=== PATIENT | female | born 1960 | race Caucasian/White ===

== ENCOUNTER → 2016-11-22 | Day surgery (SDC) | payer BC ==
[2016-11-14 12:07] VITALS: BMI 29.0
--- NOTE | 2016-11-14 12:41 | PAT Medication Instructions ---
Service Date Nov 14, 2016. Current Home Medication List Acetaminophen (Tylenol), 1,000 MG PO TID PRN for Pain Cholestyramine (Cholestyramine), 4 GM PO BID Fluticasone Propionate (Nasal) (Flonase Allergy Relief), 2 SPRAY NA QAM Metoprolol Succ (Toprol Xl) (Toprol-Xl), 12.5 MG PO QAM Mometasone Furoate-Formoterol (Dulera 200/5 Mcg), 2 PUFFS INH BID Omeprazole (Prilosec), 40 MG PO QAM Phenol (Chloraseptic), 1 SPRAY PO DAILY PRN for DRY THROAT Prednisone (Prednisone), 10 MG PO QAM [Proair], 2 PUFFS INH QID PRN for Shortness of Breath Medication Instructions For Your Scheduled Surgery - Hold the following medications the morning of surgery: Cholestyramine (Cholestyramine), 4 GM PO BID Phenol (Chloraseptic), 1 SPRAY PO DAILY PRN for DRY THROAT - Take the following medications the morning of surgery with a sip of water: [Proair], 2 PUFFS INH QID PRN for Shortness of Breath (if needed) Prednisone (Prednisone), 20 MG PO QAM Omeprazole (Prilosec), 40 MG PO QAM Metoprolol Succ (Toprol Xl) (Toprol-Xl), 12.5 MG PO QAM Mometasone Furoate-Formoterol (Dulera 200/5 Mcg), 2 PUFFS INH BID Fluticasone Propionate (Nasal) (Flonase Allergy Relief), 2 SPRAY NA QAM Acetaminophen (Tylenol), 1,000 MG PO TID PRN for Pain (if needed) - Take the following medications as scheduled the night before surgery: [Proair], 2 PUFFS INH QID PRN for Shortness of Breath (if needed) Mometasone Furoate-Formoterol (Dulera 200/5 Mcg), 2 PUFFS INH BID Cholestyramine (Cholestyramine), 4 GM PO BID Acetaminophen (Tylenol), 1,000 MG PO TID PRN for Pain (if needed) If you have any questions please call us at [phone] or [phone] or [phone]
--- NOTE | 2016-11-14 13:08 | DIAGNOSTIC IMAGING REPORT ---
TWO VIEW CHEST CLINICAL HISTORY: Preoperative examination. FINDINGS: PA and lateral chest radiographs are obtained. No prior studies are available for comparison at the time of dictation. The cardiomediastinal silhouette is unremarkable. The lungs and pleural spaces are clear. There is no pneumothorax. The skeletal structures are osteopenic. Degenerative change is noted throughout the thoracic spine. IMPRESSION: No active disease in the chest. Electronically signed by: Cameron Levi M.D. 11/14/2016 1:06 PM Dictated Date/Time: 11/14/2016 1:06 PM
[2016-11-14 13:37] LABS: BASO % 0.2 %; BASO ABS # 0.01 K/uL (0-0.2); COMPLETE YES; EOS % 1.1 %; HEMATOCRIT 43.6 % (37-47); IG% 0.5 %; LYMPH % 8.7 %; LYMPH ABS # 0.54 K/uL (1.2-3.4); MEAN CELL VOLUME 95.2 fL (80-100); MEAN CORPUSCULAR HGB CONC 32.6 g/dl (32-36); MEAN PLATELET VOLUME 10.4 fL (7.4-10.4); NEUT % 81.5 %; PLATELET COUNT 196 K/uL (130-400); RED BLOOD COUNT 4.58 M/uL (4.2-5.4); WHITE BLOOD COUNT 6.23 K/uL (4.8-10.8)
[2016-11-14 13:53] LABS: PARTIAL THROMBOPLASTIN RATIO 0.9; PROTHROMBIN TIME (PATIENT) 10.3 SECONDS (9.0-12.0)
[2016-11-14 14:03] LABS: BUN/CREATININE RATIO 25.4 (10-20); CALCIUM 8.5 mg/dl (8.5-10.1); CREATININE 0.57 mg/dl (0.60-1.20); POTASSIUM 3.5 mmol/L (3.5-5.1)
[2016-11-14 14:39] LABS: URINE APPEARANCE CLEAR (CLEAR); URINE BILIRUBIN NEG (NEG); URINE COLOR YELLOW; URINE NITRITE NEG (NEG); URINE PH 5.5 (4.5-7.5); URINE SPECIFIC GRAVITY 1.029 (1.000-1.030); UROBILINOGEN NEG (NEG)
[2016-11-14 14:49] LABS: MANUAL MICROSCOPIC REQUIRED? NO; REVIEW REQ? NO
--- NOTE | 2016-11-21 22:37 | History and Physical ---
History & Physical Date Nov 21, 2016. Chief Complaint Left knee pain History of Present Illness The patient is a 56 year old female with complaints of left knee pain that has worsened over the past few months. She had a similar issue in the right knee approximately 1 year ago and had a knee arthroscopy which helped the pain. She had an MRI of the left knee when this pain began and it noted a medial meniscus tear. She is now being set up for surgical management. Past Medical/Surgical History PMH: Asthma, RA, hypertension, GERD Past surgical hx: Right knee arthroscopy, D & C, cyst removal Allergies Coded Allergies: Methotrexate (Verified Allergy, Mild, NAUSEA/ AND SOME TROUBLE BREATHING, 11/14/16) Home Medications Scheduled Budesonide/Formoterol Fumarate (Symbicort 160/4.5 Inhaler ), 2 PUFFS INH BID Cholestyramine (Cholestyramine), 4 GM PO BID Fluticasone Propionate (Nasal) (Flonase Allergy Relief), 2 SPRAY NA QAM Metoprolol Succ (Toprol Xl) (Toprol-Xl), 12.5 MG PO QAM Omeprazole (Prilosec), 40 MG PO QAM Prednisone (Prednisone), 20 MG PO QAM Scheduled PRN Acetaminophen (Tylenol), 1,000 MG PO TID PRN for Pain Phenol (Chloraseptic), 1 SPRAY PO DAILY PRN for DRY THROAT [Proair], 2 PUFFS INH QID PRN for Shortness of Breath Physical Examination Skin: warm/dry, no rash Eyes: normal inspection Head: normocephalic, atraumatic Neck: supple, trachea midline Respiratory/Chest: lungs clear, normal breath sounds, no respiratory distress Cardiovascular: regular rate, rhythm, no murmur Abdomen / GI: normal bowel sounds, non tender Extremities: + pertinent finding (Left knee: No erythema or ecchymosis. Mild swelling. Mild to moderate effusion. Pain passive and active ROM. + Naresh's of the left knee. No laxity with varus/valgus stress or anterior/posterior drawer. Decrease in ROM and strength secondary to pain.) Neurologic/Psych: no motor/sensory deficits, alert, oriented x 3 Diagnosis Left knee medial meniscus tear Left knee osteoarthritis Left knee Herrera's cyst. Plan of Treatment A Left Knee arthroscopy w/ Partial Medial Meniscectomy, chondroplasty patella, aspiration bakers' cyst is recommended. All potential risks, benefits, complications, alternatives, and rehab have been discussed with the patient. She wishes to proceed with the surgery as indicated. She will be scheduled for 11.22.16.
[~2016-11-22] VITALS: Ht 157.5 cm; Wt 72.1 kg
[~2016-11-22] MED LIST: ACET-1256 PO; ASPI-232 PO; ATROPINE SULFATE 0.1 MG/ML 5ML SYR IV PRN; BUPIVACAINE/EPINEPHRINE 0.5% MPF 1:200,000 10 ML VIAL ONE; CEFAZOLIN 2000 MG/60 ML D5W IV SCH; CHLL PO; CHOL4POW4 PO; DEXAMETHASONE SOD INJ 4 MG/ML VIAL ONE; EpHEDrine SULFATE 50MG/5ML SYR ONE; EpHEDrine SULFATE INJ 50 MG/ML AMP IV PRN; EpINEphrine HCL INJ 1 MG/ML 5ML SYRINGE ONE; FENTANYL CITRATE INJ 50 MCG/1 ML 2 ML VIAL IV PRN; FENTANYL CITRATE INJ 50 MCG/1 ML 2 ML VIAL ONE; FLUT0.15; LACTATED RINGER'S 1000ML 1,000 ML IV SCH; LIDOCAINE HCL 2% 2 ML VIAL (20MG/ML) ONE; METO25TA3 PO; MIDAZOLAM HCL 1 MG/ML 2ML VIAL ONE; OMEP40CA PO; OMEP40CA41 PO; ONDANSETRON INJ 2 MG/ML 2 ML VIAL IV PRN; ONDANSETRON INJ 2 MG/ML 2 ML VIAL ONE; OXYC-57 PO; OXYCODONE/ACETAMINOPHEN 5-325 TAB PO PRN; PHENYLEPHRINE 100MCG/ML 5ML SYR ONE; PRED20TA PO; PRED50TA PO; PROAIR INH; PROPOFOL IV EMULSION 10 MG/ML 20 ML VIAL IV ONE; SYMIN160 INH; TOCI80IN IM
[2016-11-22 06:42] VITALS: BP 145/75; PULSE 74; TEMP 36.7; O2SAT 96; Ht 157.5 cm; Wt 72.1 kg
--- NOTE | 2016-11-22 07:50 | History & Physical Bridge Note ---
H&P Re-Evaluation Bridge Note: I have examined the patient, reviewed the History & Physical and in the interval since the performance of the History & Physical I have noted the following changes of clinical significance: No changes noted
--- NOTE | 2016-11-22 10:10 | Discharge Instructions ---
Discharge Instructions Date of Service Nov 22, 2016. Admission Reason for Admission: Left Knee Medidal Meniscus Tear, Synovial Cyst Of Discharge Discharge Diagnosis / Problem: Left knee medial meniscus tear Discharge Goals Goal(s): Decrease discomfort, Improve function Activity Recommendations Activity Limitations: per Instructions/Follow-up section Weightbearing Status: Left weightbearing (as tolerated) . Instructions / Follow-Up Instructions / Follow-Up ACTIVITY RECOMMENDATIONS: * You may walk on the leg with or without crutches as comfort permits. * Bending of the knee should start at once. * Do not shower for 48 hours following surgery. SPECIAL CARE INSTRUCTIONS: * You may cleanse the skin adjacent to the small wounds with soap and water at the time of the first dressing change. * The application of an ice bag to the front and sides of the knee will decrease swelling and discomfort for the first 48 hours. * The small incisions may be sore and develop bruising. This bruising does not require any special care. SPECIAL PRECAUTIONS: * If you experience unusual pain unrelieved by prescriptions, temperature elevation (100 degrees F. or above) or progressive swelling or bleeding, you should contact our office at for further evaluation. * You may have been prescribed pain medication. If you experience nausea and/or fine skin rash, discontinue this medication and contact our office at for an alternate medication. DRESSING: * Dressing should be comfortable and absorb any leakage of fluid and/or blood. * The dressing may become moist or bloodstained. * Dressing may be removed 3 days after surgery and bandaids placed over the small surgical incisions. If can be removed sooner if it becomes very soiled or loose. * Bandaids may be used over next several days as needed and can be discontinued when there is not further drainage from the wounds. FOLLOW UP VISIT: If appointment is not already scheduled: Please call [facility] to make a follow-up appointment for 2 weeks after your surgery at . Current Hospital Diet Patient's current hospital diet: Discharge Diet Recommended Diet: Regular Diet Procedures Procedures Performed: Left Knee Arthroscopy with Partial Medial Menisectomy, Chondroplasty; Patella - Aspiration Bakers Cyst Pending Studies Studies pending at discharge: no Medical Emergencies . Who to Call and When: Medical Emergencies: If at any time you feel your situation is an emergency, please call [phone] immediately. . Non-Emergent Contact Non-Emergency issues call your: Surgeon Call Non-Emergent contact if: temperature is above 101, your pain is not controlled, your pain is worsening, wound has increased drainage, wound has increased redness . "Provider Documentation" section prepared by Dyllan Ashton. . VTE Core Measure Inpt VTE Proph given/why not?: SCD's
--- NOTE | 2016-11-22 11:10 | [facility] Post Operative Brief Note ---
Immediate Operative Summary Operative Date Nov 22, 2016. Pre-Operative Diagnosis Left knee medial meniscus tear Left knee osteoarthritis Left knee Herrera's cyst. 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 Procedure(s) Performed Left Knee Arthroscopy with Partial Medial Menisectomy; Partial Lateral Menisectomy, Chondroplasty of Patella, Abrasion Chondroplasty medial femoral chondyle; Aspiration Bakers Cyst Surgeon Dr. Mosqueda [employer] Architect Surgeon(s) none Estimated Blood Loss 1 ML Findings See dict Specimens none per surgeon Drains None Anesthesia GLMA w/ local Complication(s) None Disposition Recovery Room / PACU
[2016-11-22 11:39] VITALS: BP 140/67; PULSE 88; TEMP 36.7; O2SAT 97
[2016-11-22 12:10] VITALS: BP 139/62; PULSE 96; O2SAT 97
--- NOTE | 2016-11-22 12:35 | Anesthesiology Progress Note ---
Anesthesia Post Op Note Date & Time Nov 22, 2016 at 12:35 Vital Signs Pain Intensity: 3 Vital Signs Past 12 Hours Date Time Temp Pulse Resp B/P (MAP) Pulse Ox O2 Delivery O2 Flow Rate FiO2 11/22/16 12:10 96 18 139/62 97 Nasal Cannula 1.5 11/22/16 11:39 36.7 88 16 140/67 97 Nasal Cannula 1.5 11/22/16 11:30 89 16 133/69 97 Nasal Cannula 2 11/22/16 11:20 36.4 86 14 131/67 97 Nasal Cannula 2 11/22/16 11:10 90 18 117/76 99 Oxymask 8 11/22/16 11:00 90 16 121/70 99 Oxymask 8 11/22/16 10:52 36 98 16 120/79 100 Oxymask 8 11/22/16 06:42 36.7 74 18 145/75 (98) 96 Room Air Notes Mental Status: alert / awake / arousable, participated in evaluation Pt Amnestic to Procedure: Yes Nausea / Vomiting: adequately controlled Pain: adequately controlled Airway Patency, RR, SpO2: stable & adequate BP & HR: stable & adequate Hydration State: stable & adequate Anesthetic Complications: no major complications apparent
[2016-11-22 12:40] VITALS: BP 135/63; PULSE 98; TEMP 36.2; O2SAT 94
--- NOTE | 2016-11-22 23:33 | OPERATIVE REPORT ---
DATE OF OPERATION: 11/22/2016 PREOPERATIVE DIAGNOSES: 1. Left knee medial meniscus tear. 2. Chondromalacia of the patella. 3. Herrera's cyst. POSTOPERATIVE DIAGNOSES: 1. Left knee medial meniscus tear. 2. Lateral meniscus tear. 3. 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 4. 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 5. Major synovitis. 6. Herrera's cyst. PROCEDURE: 1. Left knee arthroscopy with partial medial meniscectomy. 2. Partial lateral meniscectomy. 3. Abrasion chondroplasty to bleeding bone of the medial femoral condyle. 4. Chondroplasty of the patella. 5. Major synovectomy. 6. Aspiration Herrera's cyst. SURGEON: Dr. Mosqueda. LORRY WEIGHER: None. ANESTHESIA: General LMA with local. SPECIMENS: None. DRAINS: None. COMPLICATIONS: None. BLOOD LOSS: 1 mL PERTINENT HISTORY: This is a 56-year-old woman who had sustained a twisting injury to her left knee. She had difficulty with weightbearing, walking and standing. She attempted conservative management and failed including bracing, use of an anti-inflammatory, use of an assistive device, home exercises and shoe wear modification. She had an MRI which demonstrated tear of the medial meniscus, large Herrera cyst in the posterior fossa of the knee and irregularity of the chondral surface of the patella. The patient was then scheduled for surgery as indicated. All potential risks, benefits, complications, alternatives, rehab, potential for incomplete relief of symptoms, need for further surgery, DVT, PE, , persistent pain, swelling, scarring, weakness, neurovascular injury, wound complications were discussed with the patient. The patient decided to proceed with the procedure as indicated. PROCEDURE IN DETAIL: The patient was taken to the operative suite, placed supine on the operating room table. After review of the consent and identification of proper operative site, the patient was anesthetized, LMA was placed. Tourniquet was placed high on the left thigh over cast padding. Left lower extremity was then sterilely prepped and draped in usual fashion, elevated and exsanguinated with an Esmarch bandage. Tourniquet inflated to 350 mmHg. Next, the knee was elevated, and then using an 18-gauge spinal needle, approximately 20 mL of straw-colored synovial fluid was withdrawn from the posterior fossa of the left knee. After this was completed, 11 blade scalpel was then used to make an incision on the inferior lateral aspect of the knee, followed by placement of blunt trocar and sleeve, camera and inflow. Next, a superomedial portal was established using 11 blade scalpel and placement of a Veress needle for outflow. Next, sequential diagnostic arthroscopy commenced in the suprapatellar pouch, noting synovitis. There was also noted to be chondromalacia grade 2-3 of the patella and some minor softening in the femoral trochlea. Significant synovitis was noted in the suprapatellar pouch, both medial and lateral gutters. No loose bodies noted in the lateral or medial gutter. Next, attention was then directed toward the medial joint space, 18-gauge spinal needle was introduced to establish the portal site with 11 blade scalpel incision. Next, a blunt tip probe was inserted, noted to be a tear of the posterior horn extending into the body of the medial meniscus. Also noted to be chondromalacia grade 3 of the medial femoral condyle with significant softening. Next, the basket biter was inserted and the damaged portion of the medial meniscus was then resected. Next, a 4.5 mm sucker shaver was introduced, followed by removal of particulate debris of the meniscus. Next, the meniscus was then smoothed and contoured with the sucker shaver. This was then followed by performance of an abrasion chondroplasty to bleeding bone of the medial femoral condyle. Once this was completed, attention was then directed toward the ACL and PCL which were inspected and tested with a blunt tip probe. They were noted to be intact. Next, synovitis was noted in the medial and lateral compartments. At this point, synovectomy was performed with the sucker shaver of the medial and lateral compartments. Next, the lateral joint space was then inspected. The chondral surfaces were noted to be intact. There was also noted to be a tear of the posterior horn of the lateral meniscus. Partial lateral meniscectomy was then performed with a basket biter and the remainder of the meniscus was then smoothed and contoured with a 4.5 mm sucker shaver. All particulate debris was removed. Next, the 4.5 mm sucker shaver was then used to perform a synovectomy in the medial and lateral gutters as well as in the suprapatellar pouch. This was then followed by performance of chondroplasty of the patella. Next, synovectomy was then completed and all excess debris and particulate debris were then flushed from the joint using copious amounts of lavage solution. Next, the lavage solution was then removed from the joint, followed by removal of the instruments from the left knee. Next, the joint was then injected with 30 mL of 0.25% Marcaine with epinephrine. The portal sites then all closed using interrupted 4-0 nylon suture. A sterile compressive dressing and Ishmael wrap was then applied. The tourniquet was then released. The patient was awakened and taken to recovery in stable condition. I attest to the content of the Intraoperative Record and any orders documented therein. Any exception s are noted below.
== END | disposition home or self-care (01) ==
LOC: C.ACU 06:09
PROVIDERS: ATTEND Orthopaedic Surgery Sports Medicine
DX: S83.242A Other tear of medial meniscus, current injury, left knee, initial encounter (principal); S83.282A Other tear of lateral meniscus, current injury, left knee, initial encounter; X50.0XXA Overexertion from strenuous movement or load, initial encounter; M22.42 Chondromalacia patellae, left knee; M94.262 Chondromalacia, left knee; M65.812 Other synovitis and tenosynovitis, left shoulder; M71.22 Synovial cyst of popliteal space [Baker], left knee; I10 Essential (primary) hypertension; J45.909 Unspecified asthma, uncomplicated; K21.9 Gastro-esophageal reflux disease without esophagitis; M06.9 Rheumatoid arthritis, unspecified; Z79.899 Other long term (current) drug therapy

== ENCOUNTER 2016-11-28 02:33 | Emergency (ER) | payer BC ==
[~2016-11-28] VITALS: Ht 157.5 cm; Wt 73.0 kg
[~2016-11-28 02:33] MED LIST changes: -ACET-1256 PO; -ASPI-232 PO; -ATROPINE SULFATE 0.1 MG/ML 5ML SYR IV PRN; -BUPIVACAINE/EPINEPHRINE 0.5% MPF 1:200,000 10 ML VIAL ONE; -CEFAZOLIN 2000 MG/60 ML D5W IV SCH; -DEXAMETHASONE SOD INJ 4 MG/ML VIAL ONE; -EpHEDrine SULFATE 50MG/5ML SYR ONE; -EpHEDrine SULFATE INJ 50 MG/ML AMP IV PRN; -EpINEphrine HCL INJ 1 MG/ML 5ML SYRINGE ONE; -FENTANYL CITRATE INJ 50 MCG/1 ML 2 ML VIAL IV PRN; -FENTANYL CITRATE INJ 50 MCG/1 ML 2 ML VIAL ONE; -LACTATED RINGER'S 1000ML 1,000 ML IV SCH; -LIDOCAINE HCL 2% 2 ML VIAL (20MG/ML) ONE; -MIDAZOLAM HCL 1 MG/ML 2ML VIAL ONE; -OMEP40CA41 PO; -ONDANSETRON INJ 2 MG/ML 2 ML VIAL IV PRN; -ONDANSETRON INJ 2 MG/ML 2 ML VIAL ONE; -OXYCODONE/ACETAMINOPHEN 5-325 TAB PO PRN; -PHENYLEPHRINE 100MCG/ML 5ML SYR ONE; -PRED50TA PO; -PROPOFOL IV EMULSION 10 MG/ML 20 ML VIAL IV ONE; -TOCI80IN IM
[2016-11-28 02:38] VITALS: TEMP 37.5; Ht 157.5 cm; Wt 73.0 kg
[2016-11-28] MEDS ORDERED: ALBUT/IPRATROP 3MG/0.5MG NEB 3 ML VIAL INH STA (02:46)
[2016-11-28] MEDS ORDERED: SODIUM CHLORIDE 0.9% 1000ML 1,000 ML IV STA (02:46)
[2016-11-28] MEDS ORDERED: SODIUM CHLORIDE 0.9% 500ML 500 ML IV STA (02:46)
[2016-11-28] MEDS ORDERED: DEXAMETHASONE SOD INJ 10 MG/ML VIAL IV ONE (03:00)
[2016-11-28 03:09] VITALS: O2SAT 91
[2016-11-28 03:15] LABS: BASO % 0.1 %; BASO ABS # 0.01 K/uL (0-0.2); COMPLETE YES; HEMATOCRIT 42.8 % (37-47); IG% 0.7 %; LYMPH % 11.3 %; LYMPH ABS # 1.31 K/uL (1.2-3.4); MEAN CELL VOLUME 95.7 fL (80-100); MEAN CORPUSCULAR HEMOGLOBIN 31.3 pg (25-34); MEAN CORPUSCULAR HGB CONC 32.7 g/dl (32-36); MONO % 5.6 %; NEUT % 78.3 %; PLATELET COUNT 299 K/uL (130-400); RED BLOOD COUNT 4.47 M/uL (4.2-5.4); WHITE BLOOD COUNT 11.58 K/uL (4.8-10.8)
[2016-11-28 03:26] LABS: POINT OF CARE TROPONIN I < 0.030 ng/ml (0-0.045)
[2016-11-28 03:31] LABS: BUN/CREATININE RATIO 20.5 (10-20); CALCIUM 8.9 mg/dl (8.5-10.1); CREATININE 0.79 mg/dl (0.60-1.20); POTASSIUM 3.7 mmol/L (3.5-5.1)
[2016-11-28] MEDS ORDERED: OPTIRAY 320 IV PRN (03:45)
[2016-11-28] MEDS ORDERED: ASPI-232 PO (04:05)
[2016-11-28] MEDS ORDERED: OMEP40CA41 PO (04:08)
[2016-11-28] MEDS ORDERED: ONDANSETRON INJ 2 MG/ML 2 ML VIAL IV STA (04:24)
--- NOTE | 2016-11-28 06:09 | EMERGENCY ROOM VISIT NOTE ---
History First contact with patient: 02:42 Chief Complaint: RESPIRATORY PROBLEMS Stated Complaint: PAIN IN STOMACH,HARD TIME BREATHING Nursing Triage Summary: C/O frequent productive cough, SOB & nausea. Reports mucous is light yellow & thick. Frequent coughing causes left rib pain, nausea & SOB. Did use Proair inhaler at home- last 0200 without relief. Denies fever. Taking long-term Prednisone for COPD & arthritis. Recent left knee surgery- 3 sites intact & sutures noted. Eccymosis noted to back of left knee. Reports edema to knee has improved since surgery. Not taking any medications for pain. History of Present Illness The patient is a 56 year old female who presents to the Emergency Room with complaints of cough, chest pain, dyspnea and nausea for the past day. Patient had knee surgery week and half ago by Dr. Mosqueda. No history of DVT or PE. Patient's been taking a baby aspirin. Patient has been taking prednisone for her bad RA. She's been taking 25 mg daily. Patient denies fevers, abdominal pain, leg pain or swelling, headache, neck stiffness. She is tolerate by mouth fluids and food. Review of Systems See HPI for pertinent positives & negatives. A total of 10 systems reviewed and were otherwise negative. Past Medical/Surgical History arthritis, knee OR, asthma Social History Smoking Status: Never Smoker Smokeless Tobacco Use: No Drug Use: none Marital Status: Housing Status: lives with family Current/Historical Medications Scheduled Aspirin (Aspir-81), 81 MG PO DAILY Budesonide/Formoterol Fumarate (Symbicort 160/4.5 Inhaler ), 2 PUFFS INH BID Cholestyramine (Cholestyramine), 4 GM PO BID Fluticasone Propionate (Nasal) (Flonase Allergy Relief), 2 SPRAY NA QAM Metoprolol Succ (Toprol Xl) (Toprol-Xl), 12.5 MG PO QAM Omeprazole (Prilosec), 40 MG PO QAM Prednisone (Prednisone), 20 MG PO QAM Scheduled PRN Oxycodone/Acetaminophen 5MG/325MG (Percocet 5MG/325MG), 1-2 TABLETS PO Q4H PRN for Pain Phenol (Chloraseptic), 1 SPRAY PO DAILY PRN for DRY THROAT [Proair], 2 PUFFS INH QID PRN for Shortness of Breath Physical Exam Vital Signs Date Time Temp Pulse Resp B/P (MAP) Pulse Ox O2 Delivery O2 Flow Rate FiO2 11/28/16 04:03 122 24 171/67 92 Room Air 11/28/16 03:33 105 15 100 11/28/16 03:25 113 11/28/16 03:14 91 Room Air 11/28/16 03:12 161/87 11/28/16 03:09 91 Room Air 11/28/16 02:38 37.5 106 24 133/70 93 Room Air Physical Exam VITALS: Vitals are noted on the nurse's note and reviewed by myself. Vital signs stable. GENERAL: Pleasant female speaking in full sentences, in no acute distress, nondiaphoretic, well-developed well-nourished. SKIN: The skin was without rashes, erythema, edema, or bruising. There is no tenting of the skin. Capillary reflex less than 2 seconds. HEAD: Normocephalic atraumatic. EARS: External auditory canals clear, tympanic membranes pearly ma without erythema or effusion bilaterally. EYES: Pupils equal round and reactive to light and accommodation. Conjunctivae without injection, sclerae without icterus. Extraocular movements intact. NOSE: Patent, turbinates without inflammation or discharge. No sinus tenderness. MOUTH: Mucous membranes moist. Pharynx without erythema or exudate. Uvula midline. Airway patent. Tongue does not deviate. NECK: Supple without nuchal rigidity. No lymphadenopathy. No thyromegaly. Cervical spine is nontender. No JVD. HEART: Regular rate and rhythm without murmurs gallops or rubs. LUNGS: Mild diffuse end expiratory wheezes, without rales or rhonchi. No dullness to percussion. No retractions or accessory muscle use. ABDOMEN: Positive bowel sounds x 4. Normal tympanic percussion. Soft, nontender, without masses or organomegaly. No sign negative. No guarding or rebound tenderness. MUSCULOSKELETAL: No muscle atrophy, erythema, noted. Left lower leg slightly edematous with bruising present from recent surgery. Incisional scars of the left knee are intact without signs of infection. NEURO: Patient was alert and oriented to person place and time. Normal sensation to light and sharp touch. No focal neurological deficits. Medical Decision & Procedures Laboratory Results 11/28/16 03:00 Red Blood Count 4.47, Mean Corpuscular Volume 95.7, Mean Corpuscular Hemoglobin 31.3, Mean Corpuscular Hemoglobin Concent 32.7, Mean Platelet Volume 10.0, Neutrophils (%) (Auto) 78.3, Lymphocytes (%) (Auto) 11.3, Monocytes (%) (Auto) 5.6, Eosinophils (%) (Auto) 4.0, Basophils (%) (Auto) 0.1, Neutrophils # (Auto) 9.07, Lymphocytes # (Auto) 1.31, Monocytes # (Auto) 0.65, Eosinophils # (Auto) 0.46, Basophils # (Auto) 0.01 11/28/16 03:00 Test 11/28/16 03:00 11/28/16 03:08 11/28/16 05:40 White Blood Count 11.58 K/uL (4.8-10.8) Red Blood Count 4.47 M/uL (4.2-5.4) Hemoglobin 14.0 g/dL (12.0-16.0) Hematocrit 42.8 % (37-47) Mean Corpuscular Volume 95.7 fL (80-100) Mean Corpuscular Hemoglobin 31.3 pg (25-34) Mean Corpuscular Hemoglobin Concent 32.7 g/dl (32-36) Platelet Count 299 K/uL (130-400) Mean Platelet Volume 10.0 fL (7.4-10.4) Neutrophils (%) (Auto) 78.3 % Lymphocytes (%) (Auto) 11.3 % Monocytes (%) (Auto) 5.6 % Eosinophils (%) (Auto) 4.0 % Basophils (%) (Auto) 0.1 % Neutrophils # (Auto) 9.07 K/uL (1.4-6.5) Lymphocytes # (Auto) 1.31 K/uL (1.2-3.4) Monocytes # (Auto) 0.65 K/uL (0.11-0.59) Eosinophils # (Auto) 0.46 K/uL (0-0.5) Basophils # (Auto) 0.01 K/uL (0-0.2) RDW Standard Deviation 53.6 fL (36.4-46.3) RDW Coefficient of Variation 15.3 % (11.5-14.5) Immature Granulocyte % (Auto) 0.7 % Immature Granulocyte # (Auto) 0.08 K/uL (0.00-0.02) Anion Gap 7.0 mmol/L (3-11) Est Creatinine Clear Calc Drug Dose 72.6 ml/min Estimated GFR () 95.6 Estimated GFR (Non- 82.5 BUN/Creatinine Ratio 20.5 (10-20) Calcium Level 8.9 mg/dl (8.5-10.1) Total Bilirubin 0.5 mg/dl (0.2-1) Direct Bilirubin 0.1 mg/dl (0-0.2) Aspartate Amino Transf (AST/SGOT) 18 U/L (15-37) Alanine Aminotransferase (ALT/SGPT) 39 U/L (12-78) Alkaline Phosphatase 122 U/L (45-117) Total Protein 6.7 gm/dl (6.4-8.2) Albumin 3.0 gm/dl (3.4-5.0) Lipase 147 U/L (73-393) Bedside D-Dimer > 450 ng/mlFEU (0-450) Bedside Troponin I < 0.030 ng/ml (0-0.045) Medications Administered Medications (Trade) Dose Ordered Sig/Bryan Route Start Time Stop Time Status Last Admin Dose Admin Dexamethasone Sodium Phosphate (Decadron Inj) 10 mg NOW ONCE IV 11/28/16 03:00 11/28/16 03:01 DC 11/28/16 03:28 10 MG Sodium Chloride 1,000 ml @ 125 mls/hr Q8H STAT IV 11/28/16 02:46 11/28/16 10:45 11/28/16 03:37 125 MLS/HR Albuterol/ Ipratropium (Duoneb) 3 ml NOW STAT INH 11/28/16 02:46 11/28/16 02:50 DC 11/28/16 03:28 3 ML Sodium Chloride 500 ml @ 999 mls/hr Q31M STAT IV 11/28/16 02:46 11/28/16 03:16 DC 11/28/16 03:37 999 MLS/HR Ondansetron HCl (Zofran Inj) 4 mg NOW STAT IV 11/28/16 04:24 11/28/16 04:25 DC 11/28/16 04:31 4 MG ED Course Prior records/ancillary studies reviewed. Triage Nursing notes reviewed. Additional history obtained from family. The patient's history was concerning for chest pain. Differential diagnosis: Etiologies such as cardiac ischemia, aortic dissection, pulmonary embolism, pneumonia, pneumothorax, musculoskeletal, infections, pericarditis, myocarditis , esophageal rupture, gastrointestinal, as well as others were entertained. Physical examination: As above. ER treatment provided: Decadron, nebulizer On reassessment the patient felt better. Diagnostic interpretation by me: The electrocardiogram was negative for pathologic change. Normal sinus, normal intervals, occasional PVC, no acute ST-T wave changes, rate of 111. Impression sinus tachycardia with occasional PVCs interpreted by myself The labs revealed elevated d-dimer, negative troponin 2 2 hours apart Imaging studies: Chest x-ray with no acute consolidation, pneumothorax or free air per my interpretation CTA shows subacute right seventh rib fracture per stat radiology. No PE Exam and history seem consistent with bronchitis with red fracture. Patient was advised to incentive spirometry and to follow-up family care in a few days or here in the ER sooner for chest pain, difficulty breathing, worsening signs or symptoms or as needed. Patient had no PE and CTA. Negative troponin. She was well-appearing.. By the evaluation outlined above emergent etiologies such as cardiac ischemia, aortic dissection, pulmonary embolism, pneumonia, pneumothorax, infections, pericarditis, myocarditis, gastrointestinal, as well as others were deemed relatively unlikely. The pt informed about the findings as listed above. All questions were answered and pleased with the treatment. Return instructions were outlined and the patient was discharged in stable condition. Outpatient prescription management: prednisone Referral: The patient was referred back to primary care physician for follow-up in 2 to 3 days for a recheck of the current condition. Case reviewed with my attending. Medical Decision As above Medication Reconcilliation Current Medication List: was personally reviewed by me Blood Pressure Screening Patient's blood pressure: Normal blood pressure Impression Primary Impression: Bronchitis Additional Impression: Right rib fracture Departure Information Dispostion Home / Self-Care Condition GOOD Referrals Sarah Zapata M.D. (PCP) Patient Instructions My [facility] Additional Instructions Incentive spirometry 10 times an hour while you're awake for the next 2 weeks. Albuterol Inhaler: Take 2 puffs four times daily for five days, then as needed. Prednisone 50mg: Once daily until the prescription is finished. It is best to take this earlier in the day as some patients note occasional difficulty falling asleep when taken in the late evening. Acetaminophen(Tylenol) may be used for fever or pain. Use 1000mg every six hours as needed. Avoid using more than 3000mg in a 24 hour period. (AND/OR) Ibuprofen(Motrin, Advil) may be used for fever or pain. Use 600mg every six hours as needed. Take with food. Avoid using more than 2400mg in a 24 hour period. Do not use 2400mg per day for more than three consecutive days without physician direction. Prolonged inappropriate use can lead to stomach upset or ulcers. Rest and drink plenty of fluids. Avoid smoke/smoking, fumes, dust, or any triggers in the past that may have affected your breathing. Continue current medications. Return to the ER for chest pain, difficulty breathing, fevers, vomiting, worsening of your condition, or as needed. Follow up with your primary physician this week for a recheck of your current condition. Problem Qualifiers Additional Impression: Right rib fracture Encounter type: initial encounter Rib fracture type: single rib Fracture type: closed Qualified Codes: S22.31XA - Fracture of one rib, right side, initial encounter for closed fracture
[2016-11-28] MEDS ORDERED: PRED50TA PO (06:10)
[2016-11-28 06:30] VITALS: BP 133/72; PULSE 103; O2SAT 91
--- NOTE | 2016-11-28 06:32 | DIAGNOSTIC IMAGING REPORT ---
(CHEST FOR PE) ANGIO WITH CT DOSE: 243.92 mGy.cm HISTORY: Chest pain dyspnea TECHNIQUE: Multiaxial CT images of the chest were performed following the intravenous administration of contrast to evaluate the pulmonary arteries. Maximal intensity projection images were also obtained. A dose lowering technique was utilized adhering to the principles of ALARA. COMPARISON STUDY: None. FINDINGS: There is a normal caliber thoracic aorta with no evidence for dissection. There is no evidence for pulmonary embolus. No pleural effusions. No pneumothorax. The liver and spleen are unremarkable. No mediastinal or hilar lymphadenopathy. The central airways are patent. The lungs are clear. Several old right-sided rib fractures. No focal infiltrate. IMPRESSION: No evidence for pulmonary embolus. The above report was generated using voice recognition software. It may contain grammatical, syntax or spelling errors. Electronically signed by: Carlos Maciel M.D. 11/28/2016 6:31 AM Dictated Date/Time: 11/28/2016 6:30 AM
--- NOTE | 2016-11-28 06:47 | DIAGNOSTIC IMAGING REPORT ---
CHEST ONE VIEW PORTABLE HISTORY: 56 years-old Female CHEST PAIN acute atypical chest pain with cough. Initial exam. COMPARISON: Chest radiograph 11/14/2016, CTA chest 11/28/2016. TECHNIQUE: Portable upright AP view the chest FINDINGS: Cardiomediastinal and hilar silhouettes are within normal limits. There is no pneumothorax, pleural effusion or focal airspace consolidation. There is no overt pulmonary edema. There is mild bilateral bronchial wall thickening with mild hyperinflation. The bones are grossly intact. IMPRESSION: 1. No focal airspace consolidation to suggest pneumonia. 2. Mild bilateral bronchial wall thickening, also seen on comparison chest CT of same day suggests bronchitis with mild hyperinflation. The above report was generated using voice recognition software. It may contain grammatical, syntax or spelling errors. Electronically signed by: Nagi Lorenzo M.D. 11/28/2016 6:45 AM Dictated Date/Time: 11/28/2016 6:44 AM
== END 2016-11-28 06:36 | disposition home or self-care (01) ==
LOC: C.EDB 02:34
DX: J40 Bronchitis, not specified as acute or chronic (principal); S22.31XA Fracture of one rib, right side, initial encounter for closed fracture; X58.XXXA Exposure to other specified factors, initial encounter; Z79.82 Long term (current) use of aspirin; Z79.899 Other long term (current) drug therapy; J45.909 Unspecified asthma, uncomplicated; M19.90 Unspecified osteoarthritis, unspecified site

== ENCOUNTER 2017-03-26 15:14 | Inpatient (IN) | payer BC ==
[~2017-03-26] VITALS: Ht 160 cm; Wt 72.8 kg
[~2017-03-26 15:14] MED LIST changes: +ASPI-232 PO; -OMEP40CA PO; +OMEP40CA41 PO
[2017-03-26] MEDS ORDERED: ALBUT/IPRATROP 3MG/0.5MG NEB 3 ML VIAL INH STA (15:31)
--- NOTE | 2017-03-26 16:18 | DIAGNOSTIC IMAGING REPORT ---
CHEST ONE VIEW PORTABLE CLINICAL HISTORY: 57 years-old Female presenting with sob eval for pna. TECHNIQUE: Portable upright AP view of the chest was obtained. COMPARISON: 11/28/2016. FINDINGS: Cardiomediastinal silhouette normal. Mild bronchial wall thickening. No focal infiltrate. No pleural effusion or pneumothorax. Old fracture of the right seventh rib suspected. Osseous structures otherwise normal. Upper abdomen normal. IMPRESSION: 1. Mild bronchial wall thickening could suggest bronchitis or reactive airways. No focal infiltrate to suggest pneumonia. Electronically signed by: Franklin Walters M.D. 03/26/2017 4:17 PM Dictated Date/Time: 03/26/2017 4:15 PM
[2017-03-26] MEDS ORDERED: MTHI50 INJ (16:24)
[2017-03-26] MEDS ORDERED: SPRIN/30 INH (16:24)
[2017-03-26] MEDS ORDERED: PRED10TA PO (16:24)
[2017-03-26] MEDS ORDERED: RANI300T2 PO (16:24)
[2017-03-26] MEDS ORDERED: RRALBUTNEB NEB (16:24)
[2017-03-26] MEDS ORDERED: VNTHFA/IN INH (16:24)
[2017-03-26] MEDS ORDERED: OPTIRAY 320 IV PRN (16:30)
[2017-03-26 16:36] LABS: PTT PATIENT 21.5 SECONDS (21.0-31.0)
[2017-03-26 16:45] LABS: BASO % 0.4 %; BASO ABS # 0.02 K/uL (0-0.2); EOS % 2.8 %; EOS ABS # 0.16 K/uL (0-0.5); HEMATOCRIT 53.1 % (37-47); HEMOGLOBIN 17.6 g/dL (12.0-16.0); IG# 0.05 K/uL (0.00-0.02); LYMPH % 13.8 %; LYMPH ABS # 0.78 K/uL (1.2-3.4); MEAN CELL VOLUME 97.1 fL (80-100); MEAN CORPUSCULAR HEMOGLOBIN 32.2 pg (25-34); MEAN CORPUSCULAR HGB CONC 33.1 g/dl (32-36); MONO ABS # 0.51 K/uL (0.11-0.59); NEUT % 73.1 %; NEUT ABS # 4.13 K/uL (1.4-6.5); PLATELET COUNT 143 K/uL (130-400); WHITE BLOOD COUNT 5.65 K/uL (4.8-10.8)
[2017-03-26 16:48] LABS: CREATININE 0.78 mg/dl (0.60-1.20); POTASSIUM 3.4 mmol/L (3.5-5.1)
--- NOTE | 2017-03-26 17:20 | DIAGNOSTIC IMAGING REPORT ---
(CHEST FOR PE) ANGIO WITH CLINICAL HISTORY: 57 years-old Female presenting with respiratory failure, concern for pulmonary embolus. TECHNIQUE: Multidetector CT angiography of the chest was performed after administration of intravenous contrast. 3-D volumetric and/or maximum intensity projection (MIP) images were subsequently reconstructed for review. IV contrast: 95 mL of Optiray 320. A dose lowering technique was used consistent with the principles of ALARA (as low as reasonably achievable). COMPARISON: 11/28/2016. CT DOSE (mGy.cm): The estimated cumulative dose is 403.40 mGy.cm. FINDINGS: [employer] topogram: Unremarkable. Pulmonary vasculature: The study is adequate for assessment of the pulmonary vascular tree. No filling defect within the pulmonary arteries to suggest embolus. Main pulmonary artery is not enlarged. No flattening of the interventricular septum. No intracardiac filling defect. No reflux of contrast into the hepatic veins. Remaining chest: On soft tissue windows, normal thyroid and thoracic inlet. Multiple prominent subcentimeter mediastinal and bilateral hilar lymph nodes. Normal aorta. Normal heart size. No pericardial or pleural effusion. Upper abdomen normal. On lung windows, multifocal nodular opacities involving all 5 lobes with a basilar predominance. These demonstrate peripheral halos of groundglass opacity. Mosaic attenuation could be related to small airways disease or have a vascular etiology. Diffuse bronchial wall thickening. On bone windows, degenerative changes of the spine. Exaggerated thoracic kyphosis. Evidence of old right rib fracture. IMPRESSION: 1. No evidence of pulmonary emboli. 2. Multifocal nodular opacities involving all 5 lobes with a basilar predominance. These are most concerning for an infectious etiology especially given the presence of bronchial wall thickening, atypical and fungal infections such as angioinvasive aspergillosis not excluded. Differential considerations include septic emboli or hemorrhagic metastases among other etiologies. 3. Reactive mediastinal and bilateral hilar lymph nodes. The report will be called/faxed according to standard departmental protocol. Electronically signed by: Franklin Walters M.D. 03/26/2017 5:19 PM Dictated Date/Time: 03/26/2017 5:13 PM
[2017-03-26] MEDS ORDERED: CEFEPIME IV 2,000 MG in DEXTROSE 5% 100ML 100 ML IV STA (17:23)
--- NOTE | 2017-03-26 18:08 | History and Physical ---
History & Physical Date & Time of Service: Mar 26, 2017 at 18:07 Chief Complaint: Resp. Failure- Referred By Primary Care Physician: Sarah Zapata M.D. History of Present Illness Source: patient, family Patient is a 57 yr female with PMH of RA, COPD, GERD, Hiatal hernia, DDD, arthritis, prediabetes and other problems presents with history of worsening cough, SOB and chest tightness. She was seen by her PCP today and was found to be Hypoxic with Oxygen Sats to be 84% and so was sent to ED for further evaluation. Patient states cough is productive with yellowish expectoration since last 3-4 days but denies any hemoptysis. Also developed chest tightness and SOB since this morning which has been progressively worsening. Reports associated nausea and chills but denies fever, vomiting, abdominal pain. She is saturating 87% on room air while in ED which improved to 95% on 2 liters of oxygen. She reports leg swelling which has been improved since decrease of prednisone which she takes for arthritis.Denies any history of dizziness, hemoptysis, fever, vomiting, abdominal pain, diarrhea, dysuria, sick contact, recent change in medications. Past Medical/Surgical History Medical Problems: (1) Asthma Status: Chronic (2) Rheumatoid arthritis Status: Chronic Family History Cancer Father:CAD Mother: DM II, renal cancer Social History Smoking Status: Never Smoker Alcohol Use: none Drug Use: none Marital Status: Allergies Coded Allergies: Methotrexate (Verified Allergy, Mild, NAUSEA/ AND SOME TROUBLE BREATHING, 03/26/17) PILL FORM ONLY CAN RECEIVED INJECTIONS Home Medications Scheduled Budesonide/Formoterol Fumarate (Symbicort 160/4.5 Inhaler ), 2 PUFFS INH BID Cholestyramine (Cholestyramine), 4 GM PO BID Fluticasone Propionate (Nasal) (Flonase Allergy Relief), 2 SPRAY NA QAM Methotrexate (Methotrexate Sodium), 1 DOSE INJ WK Metoprolol Succ (Toprol Xl) (Toprol-Xl), 25 MG PO QAM Omeprazole (Prilosec), 40 MG PO QAM Prednisone Tab (Prednisone), 15 MG PO DAILY Ranitidine Hcl (Zantac), 300 MG PO HS Tiotropium [place] (Spiriva Handihaler), 1 CAP INH DAILY Scheduled PRN Albuterol Hfa (Ventolin Hfa), 2 PUFFS INH Q4H PRN for SOB/Wheezing Albuterol Sulf (Albuterol Sulfate), 1 VIAL NEB Q4 PRN for SOB/Wheezing Review of Systems See HPI for pertinent positives & negatives. A total of 10 systems reviewed and were otherwise negative. Physical Exam Vital Signs Date Time Temp Pulse Resp B/P (MAP) Pulse Ox O2 Delivery O2 Flow Rate FiO2 03/26/17 16:21 108 03/26/17 16:19 36.9 102 22 125/86 95 Nasal Cannula 2.0 03/26/17 15:50 93 Nasal Cannula 2.0 03/26/17 15:38 95 Nasal Cannula 2.0 03/26/17 15:17 36.9 97 20 157/79 87 Room Air General Appearance: WD/WN, no apparent distress Head: normocephalic, atraumatic Eyes: normal inspection, PERRL, EOMI, sclerae normal ENT: normal ENT inspection, hearing grossly normal Neck: supple, trachea midline Respiratory/Chest: no respiratory distress, no accessory muscle use, + decreased breath sounds, + crackles (bases), + pertinent finding (mild chest tenderness to palpate) Cardiovascular: regular rate, rhythm, no edema, no murmur, + tachycardia Abdomen/GI: normal bowel sounds, non tender, soft Back: normal inspection Extremities/Musculoskelatal: normal inspection, no pedal edema 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, no motor/sensory deficits, alert, normal mood/affect, oriented x 3 Skin: normal color, warm/dry Diagnostics Laboratory Results Results Past 24 Hours Test 03/26/17 15:50 03/26/17 15:59 Range/Units White Blood Count 5.65 4.8-10.8 K/uL Red Blood Count 5.47 4.2-5.4 M/uL Hemoglobin 17.6 12.0-16.0 g/dL Hematocrit 53.1 37-47 % Mean Corpuscular Volume 97.1 80-100 fL Mean Corpuscular Hemoglobin 32.2 25-34 pg Mean Corpuscular Hemoglobin Concent 33.1 32-36 g/dl Platelet Count 143 130-400 K/uL Neutrophils (%) (Auto) 73.1 % Lymphocytes (%) (Auto) 13.8 % Monocytes (%) (Auto) 9.0 % Eosinophils (%) (Auto) 2.8 % Basophils (%) (Auto) 0.4 % Neutrophils # (Auto) 4.13 1.4-6.5 K/uL Lymphocytes # (Auto) 0.78 1.2-3.4 K/uL Monocytes # (Auto) 0.51 0.11-0.59 K/uL Eosinophils # (Auto) 0.16 0-0.5 K/uL Basophils # (Auto) 0.02 0-0.2 K/uL Immature Granulocyte % (Auto) 0.9 % Immature Granulocyte # (Auto) 0.05 0.00-0.02 K/uL Prothrombin Time 10.3 9.0-12.0 SECONDS Prothromb Time International Ratio 1.0 0.9-1.1 Activated Partial Thromboplast Time 21.5 21.0-31.0 SECONDS Partial Thromboplastin Ratio 0.8 Sodium Level 142 136-145 mmol/L Potassium Level 3.4 3.5-5.1 mmol/L Chloride Level 105 98-107 mmol/L Carbon Dioxide Level 32 21-32 mmol/L Anion Gap 5.0 3-11 mmol/L Blood Urea Nitrogen 11 7-18 mg/dl Creatinine 0.78 0.60-1.20 mg/dl Est Creatinine Clear Calc Drug Dose 73.7 ml/min Estimated GFR () 96.4 Estimated GFR (Non- 83.2 BUN/Creatinine Ratio 13.7 10-20 Random Glucose 90 70-99 mg/dl Calcium Level 9.0 8.5-10.1 mg/dl Pro-B-Type Natriuretic Peptide 43 0-900 pg/ml Influenza Type A Antigen Neg for Influ A NEG Influenza Type B Antigen Neg for Influ B NEG Bedside D-Dimer > 450 0-450 ng/mlFEU Bedside Troponin I < 0.030 0-0.045 ng/ml Microbiology Results 03/26/17 Blood Culture, Received Pending 03/26/17 Blood Culture, Received Pending Diagnostic Radiology CTA: 1. No evidence of pulmonary emboli. 2. Multifocal nodular opacities involving all 5 lobes with a basilar predominance. These are most concerning for an infectious etiology especially given the presence of bronchial wall thickening, atypical and fungal infections such as angioinvasive aspergillosis not excluded. Differential considerations include septic emboli or hemorrhagic metastases among other etiologies. 3. Reactive mediastinal and bilateral hilar lymph nodes. EKG EKG: Sinus Tachycardia, Non specific ST-T wave changes, Prolonged QTC Impression Assessment and Plan Acute on Chronic Respiratory Failure: DD: angioinvasive aspergillosis, septic emboli H/O COPD CTA: No PE, Multifocal nodular opacities involving all 5 lobes with a basilar predominance. Reactive mediastinal and bilateral hilar lymph nodes Oxygen support, Duonebs Start broad spectrum IV Antibiotics (Vanco and Zosyn) and Voriconazole for possible aspergillosis Blood and sputum cultures ordered Consulted Pulmonary and ID Check VBG, influenza PCR Continue PO prednisone Also get ECHO Elevated D-dimer: CTA: No PE check Venous Doppler Prolonged QTC: Avoid QTC prolonging meds repeat EKG in AM Rheumatoid Arthritis: Follows with Rheumatology as outpatient Hold Methotrexate and Actemra for now continue prednisone GERD: Continue PPI H/O Prediabetes A1C: 6.0 DVT Px: Heparin SQ Code Status: Full Code Disposition: Monitor in Tele PROCEDURES CTA: 1. No evidence of pulmonary emboli. 2. Multifocal nodular opacities involving all 5 lobes with a basilar predominance. These are most concerning for an infectious etiology especially given the presence of bronchial wall thickening, atypical and fungal infections such as angioinvasive aspergillosis not excluded. Differential considerations include septic emboli or hemorrhagic metastases among other etiologies. 3. Reactive mediastinal and bilateral hilar lymph nodes.
[2017-03-26] MEDS ORDERED: CONSULT PHARMACY STA (18:39)
[2017-03-26] MEDS ORDERED: ONDANSETRON INJ 2 MG/ML 2 ML VIAL IV PRN (18:45)
[2017-03-26] MEDS ORDERED: ACETAMINOPHEN 325 MG TAB PO PRN (18:45)
[2017-03-26] MEDS ORDERED: ALBUT/IPRATROP 3MG/0.5MG NEB 3 ML VIAL INH PRN (19:00)
[2017-03-26] MEDS ORDERED: PROMETHAZINE HCL INJ 12.5 MG in SODIUM CHLORIDE 0.9% 50ML 50 ML IV PRN (19:15)
--- NOTE | 2017-03-26 19:33 | EMERGENCY ROOM VISIT NOTE ---
History Report prepared by Ginger: Samantha William Under the Supervision of: Dr. Jack Carson M.D. First contact with patient: 15:20 Chief Complaint: RESPIRATORY PROBLEMS Stated Complaint: RESP. FAILURE- REFERRED BY History of Present Illness The patient is a 57 year old female who presents to the Emergency Room with complaints of worsening SOB starting around 4 days ago. Her SOB worsened last night. She went sent to the ED from her PCP's office today after her oxygen was found to be 84%. The patient has been coughing up yellow phlegm and feels congested. She has had chest heaviness and body aches. She has not had any fever or leg pain. She has had swelling to both of her legs which she attributes to being on prednisone. Her leg swelling has been improving since she started decreasing her prednisone. She has a history of rheumatoid arthritis and asthma. She does not smoke. She denies any history of blood clots. She did travel 1.5 hours to [place] recently for the holidays. Source of History: patient Onset: 4 days ago Position: other (global) Quality: other (SOB) Timing: worsening Associated Symptoms: + cough, + chest pain, No fevers Note: Pt reports body aches, congestion, leg swelling. Pt denies leg pain. Review of Systems See HPI for pertinent positives & negatives. A total of 10 systems reviewed and were otherwise negative. Past Medical & Surgical Medical Problems: (1) Acute respiratory failure (2) Asthma (3) Rheumatoid arthritis Family History Cancer Social History Smoking Status: Never Smoker Drug Use: none Marital Status: Housing Status: lives with family Current/Historical Medications Scheduled Budesonide/Formoterol Fumarate (Symbicort 160/4.5 Inhaler ), 2 PUFFS INH BID Cholestyramine (Cholestyramine), 4 GM PO BID Fluticasone Propionate (Nasal) (Flonase Allergy Relief), 2 SPRAY NA QAM Methotrexate (Methotrexate Sodium), 1 DOSE INJ WK Metoprolol Succ (Toprol Xl) (Toprol-Xl), 25 MG PO QAM Omeprazole (Prilosec), 40 MG PO QAM Prednisone Tab (Prednisone), 15 MG PO DAILY Ranitidine Hcl (Zantac), 300 MG PO HS Tiotropium [place] (Spiriva Handihaler), 1 CAP INH DAILY Scheduled PRN Albuterol Hfa (Ventolin Hfa), 2 PUFFS INH Q4H PRN for SOB/Wheezing Albuterol Sulf (Albuterol Sulfate), 1 VIAL NEB Q4 PRN for SOB/Wheezing Allergies Coded Allergies: Methotrexate (Verified Allergy, Mild, NAUSEA/ AND SOME TROUBLE BREATHING, 03/26/17) PILL FORM ONLY CAN RECEIVED INJECTIONS Physical Exam Vital Signs Date Time Temp Pulse Resp B/P (MAP) Pulse Ox O2 Delivery O2 Flow Rate FiO2 03/26/17 19:09 36.9 105 24 144/82 95 03/26/17 18:05 105 24 03/26/17 16:21 108 03/26/17 16:19 36.9 102 22 125/86 95 Nasal Cannula 2.0 03/26/17 15:50 93 Nasal Cannula 2.0 03/26/17 15:38 95 Nasal Cannula 2.0 03/26/17 15:17 36.9 97 20 157/79 87 Room Air Physical Exam Constitutional: Vital signs reviewed. Hypoxic with a pulse ox of 80% on room air. Eyes: Pupils are equal round reactive to light. Conjunctiva are noninjected. ENT: Pharynx is clear without erythema or exudate. Mucous membranes are moist. Neck supple without meningeal signs. Respiratory: Bilateral wheezing with rhonchi. Breath sounds are equal bilaterally. Cardiovascular: Regular rate and rhythm. No rubs or gallops. GI: Soft, nondistended and nontender. Bowel sounds are present. Musculoskeletal: No peripheral edema. No lower extremity tenderness. Integumentary: No cyanosis. Neurological: The patient is awake and alert. No focal deficits. Psychiatric: Normal affect. Medical Decision & Procedures ER Provider Diagnostic Interpretation: X-ray results as stated below per interpretation by me and the radiologist. Radiology results as stated below per my review and the radiologist's interpretation: CHEST ONE VIEW PORTABLE CLINICAL HISTORY: 57 years-old Female presenting with sob eval for pna. TECHNIQUE: Portable upright AP view of the chest was obtained. COMPARISON: 11/28/2016. FINDINGS: Cardiomediastinal silhouette normal. Mild bronchial wall thickening. No focal infiltrate. No pleural effusion or pneumothorax. Old fracture of the right seventh rib suspected. Osseous structures otherwise normal. Upper abdomen normal. IMPRESSION: 1. Mild bronchial wall thickening could suggest bronchitis or reactive airways. No focal infiltrate to suggest pneumonia. Electronically signed by: Franklin Walters M.D. 03/26/2017 4:17 PM Dictated Date/Time: 03/26/2017 4:15 PM (CHEST FOR PE) ANGIO WITH CLINICAL HISTORY: 57 years-old Female presenting with respiratory failure, concern for pulmonary embolus. TECHNIQUE: Multidetector CT angiography of the chest was performed after administration of intravenous contrast. 3-D volumetric and/or maximum intensity projection (MIP) images were subsequently reconstructed for review. IV contrast: 95 mL of Optiray 320. A dose lowering technique was used consistent with the principles of ALARA (as low as reasonably achievable). COMPARISON: 11/28/2016. CT DOSE (mGy.cm): The estimated cumulative dose is 403.40 mGy.cm. FINDINGS: Sanitation Supervisor topogram: Unremarkable. Pulmonary vasculature: The study is adequate for assessment of the pulmonary vascular tree. No filling defect within the pulmonary arteries to suggest embolus. Main pulmonary artery is not enlarged. No flattening of the interventricular septum. No intracardiac filling defect. No reflux of contrast into the hepatic veins. Remaining chest: On soft tissue windows, normal thyroid and thoracic inlet. Multiple prominent subcentimeter mediastinal and bilateral hilar lymph nodes. Normal aorta. Normal heart size. No pericardial or pleural effusion. Upper abdomen normal. On lung windows, multifocal nodular opacities involving all 5 lobes with a basilar predominance. These demonstrate peripheral halos of groundglass opacity. Mosaic attenuation could be related to small airways disease or have a vascular etiology. Diffuse bronchial wall thickening. On bone windows, degenerative changes of the spine. Exaggerated thoracic kyphosis. Evidence of old right rib fracture. IMPRESSION: 1. No evidence of pulmonary emboli. 2. Multifocal nodular opacities involving all 5 lobes with a basilar predominance. These are most concerning for an infectious etiology especially given the presence of bronchial wall thickening, atypical and fungal infections such as angioinvasive aspergillosis not excluded. Differential considerations include septic emboli or hemorrhagic metastases among other etiologies. 3. Reactive mediastinal and bilateral hilar lymph nodes. The report will be called/faxed according to standard departmental protocol. Electronically signed by: Franklin Walters M.D. 03/26/2017 5:19 PM Dictated Date/Time: 03/26/2017 5:13 PM Laboratory Results 03/26/17 15:50 Red Blood Count 5.47, Mean Corpuscular Volume 97.1, Mean Corpuscular Hemoglobin 32.2, Mean Corpuscular Hemoglobin Concent 33.1, Neutrophils (%) (Auto) 73.1, Lymphocytes (%) (Auto) 13.8, Monocytes (%) (Auto) 9.0, Eosinophils (%) (Auto) 2.8, Basophils (%) (Auto) 0.4, Neutrophils # (Auto) 4.13, Lymphocytes # (Auto) 0.78, Monocytes # (Auto) 0.51, Eosinophils # (Auto) 0.16, Basophils # (Auto) 0.02 03/26/17 15:50 Test 03/26/17 15:50 03/26/17 15:59 03/26/17 18:56 White Blood Count 5.65 K/uL (4.8-10.8) Red Blood Count 5.47 M/uL (4.2-5.4) Hemoglobin 17.6 g/dL (12.0-16.0) Hematocrit 53.1 % (37-47) Mean Corpuscular Volume 97.1 fL (80-100) Mean Corpuscular Hemoglobin 32.2 pg (25-34) Mean Corpuscular Hemoglobin Concent 33.1 g/dl (32-36) Platelet Count 143 K/uL (130-400) Neutrophils (%) (Auto) 73.1 % Lymphocytes (%) (Auto) 13.8 % Monocytes (%) (Auto) 9.0 % Eosinophils (%) (Auto) 2.8 % Basophils (%) (Auto) 0.4 % Neutrophils # (Auto) 4.13 K/uL (1.4-6.5) Lymphocytes # (Auto) 0.78 K/uL (1.2-3.4) Monocytes # (Auto) 0.51 K/uL (0.11-0.59) Eosinophils # (Auto) 0.16 K/uL (0-0.5) Basophils # (Auto) 0.02 K/uL (0-0.2) Immature Granulocyte % (Auto) 0.9 % Immature Granulocyte # (Auto) 0.05 K/uL (0.00-0.02) Prothrombin Time 10.3 SECONDS (9.0-12.0) Prothromb Time International Ratio 1.0 (0.9-1.1) Activated Partial Thromboplast Time 21.5 SECONDS (21.0-31.0) Partial Thromboplastin Ratio 0.8 Anion Gap 5.0 mmol/L (3-11) Est Creatinine Clear Calc Drug Dose 73.7 ml/min Estimated GFR () 96.4 Estimated GFR (Non- 83.2 BUN/Creatinine Ratio 13.7 (10-20) Calcium Level 9.0 mg/dl (8.5-10.1) Pro-B-Type Natriuretic Peptide 43 pg/ml (0-900) Influenza Type A Antigen Neg for Influ A (NEG) Influenza Type B Antigen Neg for Influ B (NEG) Bedside D-Dimer > 450 ng/mlFEU (0-450) Bedside Troponin I < 0.030 ng/ml (0-0.045) Laboratory results as reviewed by me. Medications Administered Medications (Trade) Dose Ordered Sig/Bryan Route Start Time Stop Time Status Last Admin Dose Admin Albuterol/ Ipratropium (Duoneb) 3 ml NOW STAT INH 03/26/17 15:31 03/26/17 15:33 DC 03/26/17 15:48 3 ML Cefepime HCl 2000 mg/Dextrose 122 ml @ 200 mls/hr NOW STAT IV 03/26/17 17:23 03/26/17 17:59 DC 03/26/17 18:03 200 MLS/HR ECG Indication: SOB/dyspnea Rate (beats per minute): 107 Rhythm: sinus tachycardia Findings: Q waves (V1 V2), no ectopy ED Course 1525: The patient was evaluated in room B6. A complete history and physical exam was performed. 1531: Duoneb 3 ml INH. 1620: I reevaluated the patient. She is no longer wheezing on exam. I discussed the test results with her. I recommended CT chest. 1718: I reevaluated the patient. Her pulse ox was 93 on 2L. She has no additional complaints at this time. I discussed the results with her. She verbalized agreement of the treatment plan. She will be evaluated for further management. 1723: Cefepime HCl 2000 mg/Dextrose 122 ml @ 200 mls/hr IV. 1726: I discussed the patient's case with Laurita Hartman [facility] The patient will be evaluated for further management. Medical Decision This is a 57-year-old female who presents with shortness of breath and cough. Differential diagnosis includes pneumonia, asthma exacerbation, pneumothorax, pleural effusion, influenza, pulmonary embolism. I did perform a limited focused review of portions of the patient's old chart on the electronic medical record. The patient has had no recent pertinent visits to this hospital. I did evaluate the patient as noted above. The patient is presenting with shortness of breath and cough. She does have some wheezing on examination but has fairly good air entry bilaterally. IV access was established. The patient was placed on a continuous pvc monitor. Her pulse ox is only 80% on room air. I did immediately place her on oxygen with 2 L via nasal cannula. She went up to 94%. She did feel clinically better. I also treated patient with a DuoNeb. I did order and personally review the patient's 12-lead EKG and chest x -ray as described above. Her x-ray does not show evidence of pneumonia. I did order and review the patient's blood work as noted in the electronic medical record. D-dimer is elevated. Troponin is negative. I did reassess the patient. Her wheezing is resolved on reexamination. After discussion with the patient, I did order a CT of the chest. I did review the images myself as well as the radiology report as described above. She does not have any evidence of pulmonary embolism. She does however have multiple nodular opacities throughout all lung coughlin. I did discuss the test results with the patient. I did treat her with cefepime 2 g IV. I did discuss the case with the hospitalist and keycase assembler. Medication Reconcilliation Current Medication List: was personally reviewed by me Blood Pressure Screening Patient's blood pressure: Elevated blood pressure Blood pressure disposition: Referred to PCP Consults Time Called: 1722 Consulting Physician: Laurita Hartman PA-C [facility] hospitalist Returned Call: [phone] I discussed the patient's case with her. The patient will be evaluated for further management. Impression Primary Impression: Hypoxia Additional Impression: Pulmonary infection Scribe Attestation The scribe's documentation has been prepared under my direct and personally reviewed by me in its entirety. I confirm that the note above accurately reflects all work, treatment, procedures, and medical decision making performed by me. Departure Information Dispostion Being Evaluated By Hospitalist Referrals No Doctor, Assigned (PCP) Patient Instructions My [facility] Problem Qualifiers
[2017-03-26] MEDS: ALBUTEROL 0.083% NEBU SOLN 3 ML VIAL INH SCH (19:51)
[2017-03-26 19:54] VITALS: PULSE 80; O2SAT 92
[2017-03-26] MEDS ORDERED: PIPERACILL/TAZOBAC CONSULT ACTIVE PRN (20:00)
[2017-03-26] MEDS ORDERED: VANCOMYCIN CONSULT ACTIVE PRN (20:00)
[2017-03-26] MEDS ORDERED: NSS + 20MEQ KCL 1000ML 1,000 ML IV ONE (20:00)
[2017-03-26] MEDS ORDERED: METHYLPREDNISOLONE IV 40 MG in SYRINGE 0 ML IV ONE (20:15)
[2017-03-26] MEDS ORDERED: PIPERACILL/TAZOBAC IV 3.375 GM in DEXTROSE 5% 100ML IV ONE (20:30)
[2017-03-26] MEDS ORDERED: VANCOMYCIN INJ 1,750 MG in SODIUM CHLORIDE 0.9% 500ML 500 ML IV SCH (20:30)
[2017-03-26 20:37] VITALS: BP 143/87; PULSE 101; TEMP 36.7; O2SAT 90; Ht 160 cm; Wt 72.8 kg
[2017-03-26 21:17] LABS: INFLUENZA A PCR Neg for Influ A (NEG); INFLUENZA B PCR Neg for Influ B (NEG)
[2017-03-26] MEDS: BUDESONIDE/FORMOTEROL FUMARATE 160/4.5 60 PUFFS/INHALER INH SCH (21:58)
[2017-03-26] MEDS: CHOLESTYRAMINE LIGHT 4 GM PKT PO SCH (21:58)
[2017-03-26] MEDS: RANITIDINE HCL 150 MG TAB PO SCH (21:59)
[2017-03-26] MEDS: HEPARIN SOD 5000 UNIT/0.5 ML CARP SQ SCH (22:05)
[2017-03-26] MEDS: VORICONAZOLE IV SCH (22:38)
[2017-03-26] MEDS: SODIUM CHLORIDE 0.9% IV SCH (22:38)
[2017-03-26 23:15] VITALS: O2SAT 91
[2017-03-26 23:20] VITALS: PULSE 89; O2SAT 91
[2017-03-26 23:36] VITALS: PULSE 84; O2SAT 91
[2017-03-27] VITALS (12 sets, daily range): BP systolic 99–149; BP diastolic 67–83; PULSE 77–100; TEMP 36.3–36.9; O2SAT 91–99
[2017-03-27] MEDS: PIPERACILL/TAZOBAC IV 3.375 GM in DEXTROSE 5% 100ML IV SCH ×3 (02:24→17:46)
[2017-03-27] MEDS: ALBUTEROL 0.083% NEBU SOLN 3 ML VIAL INH SCH ×4 (02:45→19:25)
[2017-03-27 04:17] LABS: BASO % 0.1 %; BASO ABS # 0.01 K/uL (0-0.2); HEMATOCRIT 45.3 % (37-47); HEMOGLOBIN 15.3 g/dL (12.0-16.0); IG# 0.03 K/uL (0.00-0.02); LYMPH % 4.6 %; LYMPH ABS # 0.41 K/uL (1.2-3.4); MEAN CELL VOLUME 97.6 fL (80-100); MEAN CORPUSCULAR HGB CONC 33.8 g/dl (32-36); MEAN PLATELET VOLUME 10.2 fL (7.4-10.4); MONO % 1.2 %; MONO ABS # 0.11 K/uL (0.11-0.59); NEUT % 93.8 %; NEUT ABS # 8.31 K/uL (1.4-6.5); PLATELET COUNT 157 K/uL (130-400); RED CELL DISTRIBUTION WIDTH CV 16.9 % (11.5-14.5); WHITE BLOOD COUNT 8.87 K/uL (4.8-10.8)
[2017-03-27 04:37] LABS: BLOOD UREA NITROGEN 10 mg/dl (7-18); CALCIUM 8.1 mg/dl (8.5-10.1); CARBON DIOXIDE 28 mmol/L (21-32); CREATININE 0.72 mg/dl (0.60-1.20); GLUCOSE 119 mg/dl (70-99); POTASSIUM 3.7 mmol/L (3.5-5.1); SODIUM 140 mmol/L (136-145)
[2017-03-27] MEDS: HEPARIN SOD 5000 UNIT/0.5 ML CARP SQ SCH ×3 (05:57→21:52)
--- NOTE | 2017-03-27 06:35 | DIAGNOSTIC IMAGING REPORT ---
BILATERAL LOWER EXTREMITY VENOUS DOPPLER HISTORY: Elevated D-dimer, R/O DVT COMPARISON STUDY: None. FINDINGS: There is normal compressibility, flow, and augmentation within the bilateral lower extremity deep venous systems. IMPRESSION: No sonographic evidence of deep venous thrombosis within the right or left lower extremity. Electronically signed by: Nagi Lorenzo M.D. 03/27/2017 6:34 AM Dictated Date/Time: 03/27/2017 6:32 AM
[2017-03-27] MEDS: VANCOMYCIN INJ 1,000 MG in SODIUM CHLORIDE 0.9% 250ML 250 ML IV SCH ×2 (08:13→21:51)
[2017-03-27] MEDS: TIOTROPIUM BROMIDE 5 PUFF/90 MCG INH INH SCH (08:14)
[2017-03-27] MEDS: BUDESONIDE/FORMOTEROL FUMARATE 160/4.5 60 PUFFS/INHALER INH SCH ×2 (08:14→20:56)
[2017-03-27] MEDS: FLUTICASONE PROPIONATE NA SPR 16 GM BTL SCH (08:15)
[2017-03-27] MEDS: CHOLESTYRAMINE LIGHT 4 GM PKT PO SCH ×2 (08:15→20:55)
[2017-03-27] MEDS: PANTOprazole SOD 40 MG TAB PO SCH (08:15)
--- NOTE | 2017-03-27 08:30 | Medical Consult ---
Consultation Date of Consultation: Mar 27, 2017. 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 Has had several similar but less serious episodes in the past several months. CT scan of the chest was obtained in the emergency room, reviewed by me, which shows extensive multi nodular infiltration with ground-glass appearance, worrisome for possible invasive fungal infection. Patient has been started empirically on vancomycin, Zosyn, and voriconazole. Feeling slightly better this morning. Patient has lived in [place] all her life, no significant travel or other exposure history. No ill contacts. Past Medical/Surgical History Medical Problems: (1) Bronchitis Status: Acute (2) Hypoxia Status: Acute (3) Pulmonary infection Status: Acute (4) Right rib fracture Status: Acute Medical Problems: (1) Acute respiratory failure (2) Asthma (3) Rheumatoid arthritis Family History Cancer Social History Smoking Status: Never Smoker Alcohol Use: none Drug Use: none Marital Status: Housing Status: lives with family Allergies Coded Allergies: Methotrexate (Verified Allergy, Mild, NAUSEA/ AND SOME TROUBLE BREATHING, 03/26/17) PILL FORM ONLY CAN RECEIVED INJECTIONS Current Inpatient Medications Current Inpatient Medications Medications (Trade) Dose Ordered Sig/Bryan Route Start Time Stop Time Status Last Admin Dose Admin Ioversol (Optiray 320) 100 ml UD PRN IV 03/26/17 16:30 03/30/17 16:29 Heparin Sodium (Porcine) (Heparin Sq 5000 Unit/0.5ml) 5,000 unit Q8 SQ 03/26/17 22:00 04/25/17 21:59 03/27/17 05:57 5,000 UNIT Acetaminophen (Tylenol Tab) 650 mg Q4H PRN PO 03/26/17 18:45 04/25/17 18:44 03/26/17 19:49 650 MG Albuterol Sulfate (Ventolin 0.083% 2.5MG/3ML Neb) 2.5 mg Q6R INH 03/26/17 21:00 04/25/17 20:59 03/27/17 06:58 2.5 MG Budesonide/ Formoterol Fumarate (Symbicort 160/ 4.5 Inh) 2 puffs BID INH 03/26/17 21:00 04/25/17 20:59 03/27/17 08:14 2 PUFFS Fluticasone Propionate (Flonase Nasal [place]) 2 sprays QAM NA 03/27/17 09:00 04/26/17 08:59 03/27/17 08:15 2 SPRAYS Metoprolol Succinate (Toprol Xl Tab) 25 mg QAM PO 03/27/17 09:00 04/26/17 08:59 03/27/17 08:16 25 MG Prednisone (PredniSONE TAB) 15 mg DAILY PO 03/27/17 09:00 04/26/17 08:59 03/27/17 08:15 15 MG Ranitidine HCl (zANTac TAB) 300 mg HS PO 03/26/17 21:00 04/25/17 20:59 03/26/17 21:59 300 MG Tiotropium [place] (Spiriva Handihaler Inhaler) 1 puff DAILY INH 03/27/17 09:00 04/26/17 08:59 03/27/17 08:14 1 PUFF Cholestyramine Resin (Questran Powder Light) 4 gm BID PO 03/26/17 21:00 04/25/17 20:59 03/27/17 08:15 4 GM Pantoprazole Sodium (Protonix Tab) 40 mg QAM PO 03/27/17 09:00 04/26/17 08:59 03/27/17 08:15 40 MG Albuterol/ Ipratropium (Duoneb) 3 ml Q4R PRN INH 03/26/17 19:00 04/25/17 18:59 03/26/17 23:35 3 ML Promethazine HCl 12.5 mg/Sodium Chloride 50.5 ml @ 204 mls/hr Q6H PRN IV 03/26/17 19:15 04/25/17 19:14 Vancomycin HCl (Consult) 1 ea UD PRN N/A 03/26/17 20:00 04/25/17 19:59 Piperacillin Sod/ Tazobactam Sod (Consult) 1 ea UD PRN N/A 03/26/17 20:00 04/25/17 19:59 Miscellaneous Information 1 ea UD PRN N/A 03/26/17 20:00 04/25/17 19:59 Piperacillin Sod/ Tazobactam Sod 3.375 gm/Dextrose 115 ml @ 28.75 mls/ hr Q8H IV 03/27/17 02:00 04/02/17 17:59 03/27/17 02:24 28.75 MLS/HR Voriconazole 430 mg/Sodium Chloride 100 ml @ 50 mls/hr Q12H IV 03/26/17 22:00 03/27/17 11:59 03/26/17 22:38 50 MLS/HR Voriconazole 280 mg/Sodium Chloride 100 ml @ 50 mls/hr Q12H IV 03/27/17 22:00 04/02/17 21:59 Vancomycin HCl 1000 mg/Sodium Chloride 270 ml @ 125 mls/hr Q12H IV 03/27/17 08:00 04/02/17 19:59 03/27/17 08:13 125 MLS/HR Review of Systems Constitutional: + fatigue, No fever Eyes: No problem reported ENT: No problem reported Respiratory: + cough, + sputum, + shortness of breath, + dyspnea on exertion, No hemoptysis Cardiovascular: No problem reported Abdomen: No problem reported Musculoskeletal: No problem reported Genitourinary - Female: No problem reported Neurologic: No problem reported Psychiatric: No problem reported Endocrine: No problem reported Hematologic / Lymphatic: No problem reported Integumentary: No problem reported Allergic / Immunologic: No problem reported Physical Exam Date Time Temp Pulse Resp B/P (MAP) Pulse Ox O2 Delivery O2 Flow Rate FiO2 03/27/17 06:58 84 18 97 Nasal Cannula 5.0 03/27/17 04:00 36.8 77 16 113/74 (87) 99 5.0 03/27/17 04:00 Nasal Cannula 5.0 03/27/17 02:45 82 20 91 Nasal Cannula 5.0 03/27/17 00:01 36.9 87 18 104/71 (82) 95 5.0 03/26/17 23:36 84 20 91 Nasal Cannula 5.0 03/26/17 23:20 89 91 Nasal Cannula 5.0 Humidified Oxygen 03/26/17 23:15 91 Nasal Cannula 5.0 03/26/17 20:37 36.7 101 19 143/87 90 Nasal Cannula 2.0 03/26/17 19:54 80 20 92 Nasal Cannula 4.0 03/26/17 19:09 36.9 105 24 144/82 95 03/26/17 18:05 105 24 03/26/17 16:21 108 03/26/17 16:19 36.9 102 22 125/86 95 Nasal Cannula 2.0 03/26/17 15:50 93 Nasal Cannula 2.0 03/26/17 15:38 95 Nasal Cannula 2.0 03/26/17 15:17 36.9 97 20 157/79 87 Room Air General Appearance: WD/WN, no apparent distress Head: normocephalic, atraumatic Eyes: normal inspection, EOMI, sclerae normal ENT: normal ENT inspection, hearing grossly normal, pharynx normal Neck: supple, no adenopathy, thyroid normal, trachea midline Respiratory/Chest: chest non-tender, no respiratory distress, + rales Cardiovascular: regular rate, rhythm, no gallop, no murmur Abdomen/GI: normal bowel sounds, non tender, soft, no organomegaly Back: normal inspection, no CVA tenderness Extremities/Musculoskelatal: no calf tenderness, non-tender Neurologic/Psych: alert, oriented x 3 Skin: normal color, warm/dry, no rash Lymphatic: no adenopathy Laboratory Results Date/Time Source Procedure Growth Status 03/26/17 15:50 Blood Blood Culture Pending Received 03/26/17 15:45 Blood Blood Culture Pending Received 03/27/17 05:00 Sputum Expectorated Sputum Gram Stain Pending Received 03/27/17 05:00 Sputum Expectorated Sputum Sputum Culture Pending Received Last 24 Hours Test 03/26/17 15:50 03/26/17 15:59 03/26/17 19:55 03/26/17 20:16 White Blood Count 5.65 K/uL Red Blood Count 5.47 M/uL Hemoglobin 17.6 g/dL Hematocrit 53.1 % Mean Corpuscular Volume 97.1 fL Mean Corpuscular Hemoglobin 32.2 pg Mean Corpuscular Hemoglobin Concent 33.1 g/dl Platelet Count 143 K/uL Neutrophils (%) (Auto) 73.1 % Lymphocytes (%) (Auto) 13.8 % Monocytes (%) (Auto) 9.0 % Eosinophils (%) (Auto) 2.8 % Basophils (%) (Auto) 0.4 % Neutrophils # (Auto) 4.13 K/uL Lymphocytes # (Auto) 0.78 K/uL Monocytes # (Auto) 0.51 K/uL Eosinophils # (Auto) 0.16 K/uL Basophils # (Auto) 0.02 K/uL Immature Granulocyte % (Auto) 0.9 % Immature Granulocyte # (Auto) 0.05 K/uL Prothrombin Time 10.3 SECONDS Prothromb Time International Ratio 1.0 Activated Partial Thromboplast Time 21.5 SECONDS Partial Thromboplastin Ratio 0.8 Sodium Level 142 mmol/L Potassium Level 3.4 mmol/L Chloride Level 105 mmol/L Carbon Dioxide Level 32 mmol/L Anion Gap 5.0 mmol/L Blood Urea Nitrogen 11 mg/dl Creatinine 0.78 mg/dl Est Creatinine Clear Calc Drug Dose 73.7 ml/min Estimated GFR () 96.4 Estimated GFR (Non- 83.2 BUN/Creatinine Ratio 13.7 Random Glucose 90 mg/dl Calcium Level 9.0 mg/dl Pro-B-Type Natriuretic Peptide 43 pg/ml Bedside D-Dimer > 450 ng/mlFEU Bedside Troponin I < 0.030 ng/ml Venous Blood pH 7.40 Venous Blood Partial Pressure CO2 49 mmHg Venous Blood Partial Pressure O2 54 mmHg Venous Blood HCO3 29 mmol/L Venous Blood Oxygen Saturation 86.1 % Venous Blood Base Excess 3.3 mEq/L Influenza Type A (RT-PCR) Neg for Influ A Influenza Type B (RT-PCR) Neg for Influ B Test 03/26/17 21:59 03/27/17 04:06 Troponin I < 0.015 ng/ml < 0.015 ng/ml Hepatitis C Antibody Screen NEG White Blood Count 8.87 K/uL Red Blood Count 4.64 M/uL Hemoglobin 15.3 g/dL Hematocrit 45.3 % Mean Corpuscular Volume 97.6 fL Mean Corpuscular Hemoglobin 33.0 pg Mean Corpuscular Hemoglobin Concent 33.8 g/dl Platelet Count 157 K/uL Mean Platelet Volume 10.2 fL Neutrophils (%) (Auto) 93.8 % Lymphocytes (%) (Auto) 4.6 % Monocytes (%) (Auto) 1.2 % Eosinophils (%) (Auto) 0.0 % Basophils (%) (Auto) 0.1 % Neutrophils # (Auto) 8.31 K/uL Lymphocytes # (Auto) 0.41 K/uL Monocytes # (Auto) 0.11 K/uL Eosinophils # (Auto) 0.00 K/uL Basophils # (Auto) 0.01 K/uL RDW Standard Deviation 61.0 fL RDW Coefficient of Variation 16.9 % Immature Granulocyte % (Auto) 0.3 % Immature Granulocyte # (Auto) 0.03 K/uL Anisocytosis PRESENT Sodium Level 140 mmol/L Potassium Level 3.7 mmol/L Chloride Level 106 mmol/L Carbon Dioxide Level 28 mmol/L Anion Gap 6.0 mmol/L Blood Urea Nitrogen 10 mg/dl Creatinine 0.72 mg/dl Est Creatinine Clear Calc Drug Dose 79.8 ml/min Estimated GFR () 106.2 Estimated GFR (Non- 91.7 BUN/Creatinine Ratio 14.4 Random Glucose 119 mg/dl Calcium Level 8.1 mg/dl Magnesium Level 1.7 mg/dl Patient Name: LUIS ALFREDO DEL CID Unit Number: [id number] Dictated: 03/26/171712 Transcribed: 03/26/171712 PBS Printed Date/Time: [~ rep prt dt]/[~ rep prt tm] [~ rep ct labl] - [~ rep ct ivnm] [facility] [place] [address] Dictated: 03/26/171712 Transcribed: 03/26/171712 PBS Printed Date/Time: [~ rep prt dt]/[~ rep prt tm] [~ rep ct labl] - [~ rep ct ivnm] (CHEST FOR PE) ANGIO WITH CLINICAL HISTORY: 57 years-old Female presenting with respiratory failure, concern for pulmonary embolus. TECHNIQUE: Multidetector CT angiography of the chest was performed after administration of intravenous contrast. 3-D volumetric and/or maximum intensity projection (MIP) images were subsequently reconstructed for review. IV contrast: 95 mL of Optiray 320. A dose lowering technique was used consistent with the principles of ALARA (as low as reasonably achievable). COMPARISON: 11/28/2016. CT DOSE (mGy.cm): The estimated cumulative dose is 403.40 mGy.cm. FINDINGS: Electrical System Specialist topogram: Unremarkable. Pulmonary vasculature: The study is adequate for assessment of the pulmonary vascular tree. No filling defect within the pulmonary arteries to suggest embolus. Main pulmonary artery is not enlarged. No flattening of the interventricular septum. No intracardiac filling defect. No reflux of contrast into the hepatic veins. Remaining chest: On soft tissue windows, normal thyroid and thoracic inlet. Multiple prominent subcentimeter mediastinal and bilateral hilar lymph nodes. Normal aorta. Normal heart size. No pericardial or pleural effusion. Upper abdomen normal. On lung windows, multifocal nodular opacities involving all 5 lobes with a basilar predominance. These demonstrate peripheral halos of groundglass opacity. Mosaic attenuation could be related to small airways disease or have a vascular etiology. Diffuse bronchial wall thickening. On bone windows, degenerative changes of the spine. Exaggerated thoracic kyphosis. Evidence of old right rib fracture. IMPRESSION: 1. No evidence of pulmonary emboli. 2. Multifocal nodular opacities involving all 5 lobes with a basilar predominance. These are most concerning for an infectious etiology especially given the presence of bronchial wall thickening, atypical and fungal infections such as angioinvasive aspergillosis not excluded. Differential considerations include septic emboli or hemorrhagic metastases among other etiologies. 3. Reactive mediastinal and bilateral hilar lymph nodes. The report will be called/faxed according to standard departmental protocol. Electronically signed by: Franklin Walters M.D. 03/26/2017 5:19 PM Dictated Date/Time: 03/26/2017 5:13 PM The status of this report is Signed. Draft = Not yet reviewed or approved by Radiologist. Signed = Reviewed and approved by Radiologist. <AttendingPhy></AttendingPhy> <FamilyPhy>Sarah Zapata M.D.</FamilyPhy> < PrimaryPhy>Sarah Zapata M.D.</PrimaryPhy> <UnitNumber>[id number]</UnitNumber > <VisitNumber>[id number]</VisitNumber> <PatientName>LUIS ALFREDO DEL CID</ PatientName> <DateOfBirth>1960</DateOfBirth> <Location>[facility]</Location> < ServiceDate>03/26/17</ServiceDate> <MNE>ESINDI</MNE> <OrderingPhy>Yamileth, Jack S MD</OrderingPhy> <OrderingPhyMNE>f rep ord dr judd</OrderingPhyMNE> < DictatingPhyMNE>f rep dict dr judd</DictatingPhyMNE> <CCListMNE>f rep ct mne</ CCListMNE> <AdmittingPhyMNE>f pt admit dr judd</AdmittingPhyMNE> <AttendingPhyMNE >f pt attend dr judd</AttendingPhyMNE> <ConsultingPhyMNE>f pt consult dr judd</ConsultingPhyMNE> <FamilyPhyMNE>f pt fam dr judd</FamilyPhyMNE> <OtherPhyMNE>f pt other dr judd</OtherPhyMNE> < PrimaryPhyMNE>f pt prim care dr judd</PrimaryPhyMNE> <ReferringPhyMNE>f pt referring dr judd</ReferringPhyMNE> Assessment & Plan 57-year-old female with longstanding rheumatoid arthritis on significant immunosuppressive therapy now with extensive infiltration involving all lobes of the lung with appearance worrisome for possible fungal infection. Certainly she is at high risk given her immunosuppressive therapy. Agree with empiric antibiotic and antifungal therapy pending further culture results, have ordered fungal serologies. May need to consider bronchoscopy if fails to improve and no positive culture results. Pulmonary consultation is pending. Will discuss with all involved. Will follow.
[2017-03-27] MEDS ORDERED: METOPROLOL SUCC 25MG EXT REL TAB PO SCH (09:00)
--- NOTE | 2017-03-27 10:24 | Pulmonary Consultation ---
History General Date of Service: Mar 27, 2017. Stated Complaint: Acute Respiratory Failure HPI The patient is a 57 year old female who presents to [facility] with complaints of Acute Respiratory Failure. The patient's primary care provider is Sarah Zapata M.D.. Ms. Fernandez is a 57-year-old female with past medical history of rheumatoid arthritis on prednisone as well as methotrexate, history of chronic obstructive pulmonary disease with an FEV1 48%, GERD, allergic rhinitis who follows up with Dr. Wilder in pulmonary office. She was seen in the office yesterday by CHRISS Guerrero and was noted to be in acute hypoxic respiratory failure. At that time patient complained of worsening shortness of breath with minimal activity, cough with yellowish sputum production associated with chest tightness and wheezing. She states that her symptoms started about 3 days ago. She denies any fevers, chills, chest pain, night sweats, hemoptysis, weight loss. 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 She denies any recent travel or any known new exposures. She does have history of rhinitis, postnasal drip and GERD for which he takes nasal corticosteroids and PPI. She denies any genitourinary or gastrointestinal symptoms. She does have history of lower extremity edema. Denies any changes in exercise tolerance or waking. She carries a diagnosis of rheumatoid arthritis and is on chronic steroid use. She was previously on methotrexate and Emtira which was held over the last several months to chronic bronchitis. She was recently restarted on weekly IV methotrexate. Her home medications include Flonase nasal spray, prednisone milligrams by mouth daily, Prilosec 20 mg every morning, Symbicort 160/4.52 puffs twice a day , 2 puffs twice a day when necessary. Patient states she's been compliant with her medications however he used inhalers without relief. While in the ER she did complain of nausea, denies any vomiting. In the ER his initial vital signs were 36.9, 97 pulse, respiratory rate 20, blood pressure 157/79 saturating 87% on room air. She was subsequently placed on 2 L nasal cannula with increasing oxygenation to 95%. Her examination was significant for decreased breath sounds and crackles. Her chest is tender to palpation. During her stay in the ER she was also noted to be tachycardic to 10 5 bpm. EKG showed normal sinus rhythm at [address] changes. She received albuterol 3 mL, cefepime 2 g, ondansetron 4 mg. Laboratory data showed a white blood cell count of 5, hemoglobin of 17.6, platelet count of 143. Sodium 142, potassium 3.4, chloride 105, bicarbonate 32 , BUN 11, creatinine 0.78. BNP 43. Venous blood gas 7.4/49/54/29/86.1%. Chest x-ray showed mild bronchial wall thickening suggestive of bronchitis and reactive airway disease. No focal infiltrate seen. A CT chest was done with contrast to rule out pulmonary embolism which was negative. However there was some multifocal nodular opacity seen with bibasilar predominance. There is concern for infectious etiology. She also had reactive mediastinal and bilateral hilar lymph nodes. Dopplers of the lower extremities were negative for DVTs bilaterally. She was started on vancomycin, cefepime as well as voriconazole for fungal infection in the setting of being immunocompromised state. Patient seen and examined at bedside this morning. Family at bedside. She is feeling better today. She complains of dyspnea on exertion. She still has productive cough with yellowish sputum. Historian: patient Onset: last week Severity: moderate Complaint Status: persistent Review of Systems Constitutional: reports: as stated in HPI Eyes: reports: as stated in HPI ENT: reports: as stated in HPI Cardiovascular: reports: as stated in HPI Respiratory: reports: as stated in HPI Gastrointestinal: reports: as stated in HPI Genitourinary - Female: reports: as stated in HPI Musculoskeletal: reports: as stated in HPI Integumentary: reports: as stated in HPI Neurologic: reports: as stated in HPI Psychiatric: reports: as stated in HPI Endocrine: as stated in HPI Hematologic / Lymphatic: as stated in HPI Allergic / Immunologic: as stated in HPI All Other Symptoms All Other Systems: Reviewed and Negative Past Medical History Past Medical History: Moderate COPD, FEV1 48% 55% predicted. PFT done on 01/02/2016. Rheumatoid arthritis on methotrexate and prednisone Gastric reflux disease Hiatal hernia Degenerative disc disease Rosacea Borderline diabetes type 2 Past Surgical History: Right knee arthroscopy D&C, cyst removal Tubal ligation Left knee arthroscopy Family History Cancer She is family history of CAD in father Mother has history of type 2 diabetes, renal cell carcinoma Social History A lifetime nonsmoker. But does have a moderate exposure to secondhand smoke. She works as as early years teacher for 20 years. She denies any occupational exposures. She doesn't have any pets. She has previous history of coal fumes in home, now has oil heat. Hx Tobacco Use In Past Year?: No Smoking Status: Never Smoker Marital status: Allergies Coded Allergies: Methotrexate (Verified Allergy, Mild, NAUSEA/ AND SOME TROUBLE BREATHING, 03/26/17) PILL FORM ONLY CAN RECEIVED INJECTIONS Current Medications Reported Home Medications Medications Dose Route/Sig Max Daily Dose Days Date Category Dose Instructions Spiriva Handihaler (Tiotropium [place]) 30 Puff/540 Mcg Aerp 1 Cap INH DAILY 03/26/17 Reported Zantac (Ranitidine HCl) 300 Mg Tab 300 Mg PO HS 03/26/17 Reported Ventolin Hfa (Albuterol) 200 Puffs/75830 Mcg Aers 2 Puffs INH Q4H PRN 03/26/17 Reported Prednisone 10 Mg Tab 15 Mg PO DAILY 03/26/17 Reported Methotrexate Sodium (Methotrexate) Unknown Strength Inj 1 Dose INJ WK 03/26/17 Reported SATURDAYS Albuterol Sulfate (Albuterol Sulf) 2.5 Mg/0.5 Ml Nebu 1 Vial NEB Q4 PRN 03/26/17 Reported Prilosec (Omeprazole) 40 Mg Cap 40 Mg PO QAM 11/28/16 Reported Symbicort 160/4.5 Inhaler (Budesonide/Formoterol Fumarate) Aero 2 Puffs INH BID 11/21/16 Reported Toprol-Xl (Metoprolol Succinate) 25 Mg Tabcr 25 Mg PO QAM 11/14/16 Reported Cholestyramine 4 Gm Pow 4 Gm PO BID 12/15/15 Reported Flonase Allergy Relief (Fluticasone Propionate (Nasal)) 50 Mcg/Act Spr 2 [place] NA QAM 12/15/15 Reported Physical Physical Exam Vital Signs: Date Time Temp Pulse Resp B/P (MAP) Pulse Ox O2 Delivery O2 Flow Rate FiO2 03/27/17 07:12 36.7 90 20 125/77 (93) 96 Nasal Cannula 2.0 03/27/17 06:58 84 18 97 Nasal Cannula 5.0 03/27/17 04:00 36.8 77 16 113/74 (87) 99 5.0 03/27/17 04:00 Nasal Cannula 5.0 03/27/17 02:45 82 20 91 Nasal Cannula 5.0 03/27/17 00:01 36.9 87 18 104/71 (82) 95 5.0 03/26/17 23:36 84 20 91 Nasal Cannula 5.0 03/26/17 23:20 89 91 Nasal Cannula 5.0 Humidified Oxygen 03/26/17 23:15 91 Nasal Cannula 5.0 03/26/17 20:37 36.7 101 19 143/87 90 Nasal Cannula 2.0 03/26/17 19:54 80 20 92 Nasal Cannula 4.0 03/26/17 19:09 36.9 105 24 144/82 95 03/26/17 18:05 105 24 03/26/17 16:21 108 03/26/17 16:19 36.9 102 22 125/86 95 Nasal Cannula 2.0 03/26/17 15:50 93 Nasal Cannula 2.0 03/26/17 15:38 95 Nasal Cannula 2.0 03/26/17 15:17 36.9 97 20 157/79 87 Room Air General Appearance: WELL-APPEARING, WD/WN, NO APPARENT DISTRESS Head: NORMOCEPHALIC, ATRAUMATIC Eyes: PERRLA, NO DISCHARGE, EOMI, SCLERAE NORMAL ENT: NORMAL MOUTH EXAM, NORMAL THROAT EXAM ([place] II) Neck: NORMAL RANGE OF MOTION, NO TENDERNESS, TRACHEA MIDLINE Respiratory: BREATH SOUNDS NORMAL, CLEAR TO AUSCULTATION, NO RESPIRATORY DISTRESS, NO TENDERNESS Cardiovasular: REGULAR RATE/RHYTHM, NORMAL S1S2, NO M/G/R Abdomen: NON TENDER, NORMAL BOWEL SOUNDS Upper Extremities: NO EDEMA, NO DEFORMITY, NORMAL ROM, other (no clubbing) Lower Extremities: NO EDEMA, NO DEFORMITY, NORMAL ROM Pulses: dorsalis pedis (R) (2+), dorsalis pedis (L) (2+) Neuro: ALERT, ORIENTED x 3, NORMAL MOTOR EXAM, NORMAL SENSATION, NORMAL SPEECH , NORMAL MEMORY Psychiatric: NORMAL AFFECT, NO SUICIDAL IDEATION, CONTRACTS FOR SAFETY Diagnostics Labs Results Past 24 Hours Test 03/26/17 15:50 03/26/17 15:59 03/26/17 19:55 03/26/17 20:16 Range/Units White Blood Count 5.65 4.8-10.8 K/uL Red Blood Count 5.47 4.2-5.4 M/uL Hemoglobin 17.6 12.0-16.0 g/dL Hematocrit 53.1 37-47 % Mean Corpuscular Volume 97.1 80-100 fL Mean Corpuscular Hemoglobin 32.2 25-34 pg Mean Corpuscular Hemoglobin Concent 33.1 32-36 g/dl Platelet Count 143 130-400 K/uL Neutrophils (%) (Auto) 73.1 % Lymphocytes (%) (Auto) 13.8 % Monocytes (%) (Auto) 9.0 % Eosinophils (%) (Auto) 2.8 % Basophils (%) (Auto) 0.4 % Neutrophils # (Auto) 4.13 1.4-6.5 K/uL Lymphocytes # (Auto) 0.78 1.2-3.4 K/uL Monocytes # (Auto) 0.51 0.11-0.59 K/uL Eosinophils # (Auto) 0.16 0-0.5 K/uL Basophils # (Auto) 0.02 0-0.2 K/uL Immature Granulocyte % (Auto) 0.9 % Immature Granulocyte # (Auto) 0.05 0.00-0.02 K/uL Prothrombin Time 10.3 9.0-12.0 SECONDS Prothromb Time International Ratio 1.0 0.9-1.1 Activated Partial Thromboplast Time 21.5 21.0-31.0 SECONDS Partial Thromboplastin Ratio 0.8 Sodium Level 142 136-145 mmol/L Potassium Level 3.4 3.5-5.1 mmol/L Chloride Level 105 98-107 mmol/L Carbon Dioxide Level 32 21-32 mmol/L Anion Gap 5.0 3-11 mmol/L Blood Urea Nitrogen 11 7-18 mg/dl Creatinine 0.78 0.60-1.20 mg/dl Est Creatinine Clear Calc Drug Dose 73.7 ml/min Estimated GFR () 96.4 Estimated GFR (Non- 83.2 BUN/Creatinine Ratio 13.7 10-20 Random Glucose 90 70-99 mg/dl Calcium Level 9.0 8.5-10.1 mg/dl Pro-B-Type Natriuretic Peptide 43 0-900 pg/ml Bedside D-Dimer > 450 0-450 ng/mlFEU Bedside Troponin I < 0.030 0-0.045 ng/ml Venous Blood pH 7.40 7.36-7.41 Venous Blood Partial Pressure CO2 49 38.0-50.0 mmHg Venous Blood Partial Pressure O2 54 mmHg Venous Blood HCO3 29 mmol/L Venous Blood Oxygen Saturation 86.1 % Venous Blood Base Excess 3.3 mEq/L Influenza Type A (RT-PCR) Neg for Influ A NEG Influenza Type B (RT-PCR) Neg for Influ B NEG Test 03/26/17 21:59 03/27/17 04:06 03/27/17 08:27 Range/Units Troponin I < 0.015 < 0.015 0-0.045 ng/ml Hepatitis C Antibody Screen NEG NEG White Blood Count 8.87 4.8-10.8 K/uL Red Blood Count 4.64 4.2-5.4 M/uL Hemoglobin 15.3 12.0-16.0 g/dL Hematocrit 45.3 37-47 % Mean Corpuscular Volume 97.6 80-100 fL Mean Corpuscular Hemoglobin 33.0 25-34 pg Mean Corpuscular Hemoglobin Concent 33.8 32-36 g/dl Platelet Count 157 130-400 K/uL Mean Platelet Volume 10.2 7.4-10.4 fL Neutrophils (%) (Auto) 93.8 % Lymphocytes (%) (Auto) 4.6 % Monocytes (%) (Auto) 1.2 % Eosinophils (%) (Auto) 0.0 % Basophils (%) (Auto) 0.1 % Neutrophils # (Auto) 8.31 1.4-6.5 K/uL Lymphocytes # (Auto) 0.41 1.2-3.4 K/uL Monocytes # (Auto) 0.11 0.11-0.59 K/uL Eosinophils # (Auto) 0.00 0-0.5 K/uL Basophils # (Auto) 0.01 0-0.2 K/uL RDW Standard Deviation 61.0 36.4-46.3 fL RDW Coefficient of Variation 16.9 11.5-14.5 % Immature Granulocyte % (Auto) 0.3 % Immature Granulocyte # (Auto) 0.03 0.00-0.02 K/uL Anisocytosis PRESENT Sodium Level 140 136-145 mmol/L Potassium Level 3.7 3.5-5.1 mmol/L Chloride Level 106 98-107 mmol/L Carbon Dioxide Level 28 21-32 mmol/L Anion Gap 6.0 3-11 mmol/L Blood Urea Nitrogen 10 7-18 mg/dl Creatinine 0.72 0.60-1.20 mg/dl Est Creatinine Clear Calc Drug Dose 79.8 ml/min Estimated GFR () 106.2 Estimated GFR (Non- 91.7 BUN/Creatinine Ratio 14.4 10-20 Random Glucose 119 70-99 mg/dl Calcium Level 8.1 8.5-10.1 mg/dl Magnesium Level 1.7 1.8-2.4 mg/dl Microbiology Results 03/27/17 Cryptococcal Antigen, Ordered Pending 03/26/17 Blood Culture, Received Pending 03/26/17 Blood Culture, Received Pending 03/27/17 Gram Stain, Received Pending 03/27/17 Sputum Culture, Received Pending Diagnostic Radiology BILATERAL LOWER EXTREMITY VENOUS DOPPLER HISTORY: Elevated D-dimer, R/O DVT COMPARISON STUDY: None. FINDINGS: There is normal compressibility, flow, and augmentation within the bilateral lower extremity deep venous systems. IMPRESSION: No sonographic evidence of deep venous thrombosis within the right or left lower extremity. Electronically signed by: Nagi Lorenzo M.D. 03/27/2017 6:34 AM Dictated Date/Time: 03/27/2017 6:32 AM (CHEST FOR PE) ANGIO WITH CLINICAL HISTORY: 57 years-old Female presenting with respiratory failure, concern for pulmonary embolus. TECHNIQUE: Multidetector CT angiography of the chest was performed after administration of intravenous contrast. 3-D volumetric and/or maximum intensity projection (MIP) images were subsequently reconstructed for review. IV contrast: 95 mL of Optiray 320. A dose lowering technique was used consistent with the principles of ALARA (as low as reasonably achievable). COMPARISON: 11/28/2016. CT DOSE (mGy.cm): The estimated cumulative dose is 403.40 mGy.cm. FINDINGS: Machine Veneer Repairer topogram: Unremarkable. Pulmonary vasculature: The study is adequate for assessment of the pulmonary vascular tree. No filling defect within the pulmonary arteries to suggest embolus. Main pulmonary artery is not enlarged. No flattening of the interventricular septum. No intracardiac filling defect. No reflux of contrast into the hepatic veins. Remaining chest: On soft tissue windows, normal thyroid and thoracic inlet. Multiple prominent subcentimeter mediastinal and bilateral hilar lymph nodes. Normal aorta. Normal heart size. No pericardial or pleural effusion. Upper abdomen normal. On lung windows, multifocal nodular opacities involving all 5 lobes with a basilar predominance. These demonstrate peripheral halos of groundglass opacity. Mosaic attenuation could be related to small airways disease or have a vascular etiology. Diffuse bronchial wall thickening. On bone windows, degenerative changes of the spine. Exaggerated thoracic kyphosis. Evidence of old right rib fracture. IMPRESSION: 1. No evidence of pulmonary emboli. 2. Multifocal nodular opacities involving all 5 lobes with a basilar predominance. These are most concerning for an infectious etiology especially given the presence of bronchial wall thickening, atypical and fungal infections such as angioinvasive aspergillosis not excluded. Differential considerations include septic emboli or hemorrhagic metastases among other etiologies. 3. Reactive mediastinal and bilateral hilar lymph nodes. The report will be called/faxed according to standard departmental protocol. Electronically signed by: Franklin Walters M.D. 03/26/2017 5:19 PM Dictated Date/Time: 03/26/2017 5:13 PM CHEST ONE VIEW PORTABLE CLINICAL HISTORY: 57 years-old Female presenting with sob eval for pna. TECHNIQUE: Portable upright AP view of the chest was obtained. COMPARISON: 11/28/2016. FINDINGS: Cardiomediastinal silhouette normal. Mild bronchial wall thickening. No focal infiltrate. No pleural effusion or pneumothorax. Old fracture of the right seventh rib suspected. Osseous structures otherwise normal. Upper abdomen normal. IMPRESSION: 1. Mild bronchial wall thickening could suggest bronchitis or reactive airways. No focal infiltrate to suggest pneumonia. Electronically signed by: Franklin Walters M.D. 03/26/2017 4:17 PM Dictated Date/Time: 03/26/2017 4:15 PM (CHEST FOR PE) ANGIO WITH CT DOSE: 243.92 mGy.cm HISTORY: Chest pain dyspnea TECHNIQUE: Multiaxial CT images of the chest were performed following the intravenous administration of contrast to evaluate the pulmonary arteries. Maximal intensity projection images were also obtained. A dose lowering technique was utilized adhering to the principles of ALARA. COMPARISON STUDY: None. FINDINGS: There is a normal caliber thoracic aorta with no evidence for dissection. There is no evidence for pulmonary embolus. No pleural effusions. No pneumothorax. The liver and spleen are unremarkable. No mediastinal or hilar lymphadenopathy. The central airways are patent. The lungs are clear. Several old right-sided rib fractures. No focal infiltrate. IMPRESSION: No evidence for pulmonary embolus. The above report was generated using voice recognition software. It may contain grammatical, syntax or spelling errors. Electronically signed by: Carlos Maciel M.D. 11/28/2016 6:31 AM Dictated Date/Time: 11/28/2016 6:30 AM EKG EKG on 03/27/2017 Normal sinus rhythm with a 83 bpm. Impression Assessment and Plan Acute hypoxic respiratory failure COPD Abnormal CT is a 57-year-old female with past medical history of COPD with FEV1 of about 40%. She follows up with Dr. Wilder for chronic cough and reactive airway disease. She is on chronic prednisone for rheumatoid arthritis. She was recently discontinued on Humira as well as methotrexate due to recent upper respiratory infection. She recently resumed methotrexate. Now presents with increasing cough, dyspnea on exertion and wheezing. Patient now with hypoxemic respiratory failure. CT of the chest show multifocal patchy airspace opacities. This could represent a community-acquired bacterial infection. However patient is on chronic steroid use as well as biologic medications. I would consider her to be an immunocompromised state due to this. Therefore these opacities could also represent mycobacteria/fungal infections. Continue his supplemental oxygen to maintain an SaO2 above 90%. Obtain sputum cultures for bacteria, fungal as well as AFB. ID is on board and following closely. Cytology has been sent for 1, 3 beta D glucan, galactomannan, Aspergillus antibody and cryptococcus antibody. Continue with broad-spectrum antibiotics.I do not disagree with voriconazole at this time while further workup is being done. Continue with corticosteroids as well as nebulizers every 6 hours standing dose and when necessary. She does have history of allergic rhinitis as well as prescription with complete contributing to her cough. Continue with inhaled nasal corticosteroid as well as PPI. Discussed the need for bronchoscopy. Consent obtained and placed in chart. All questions answered. Please keep NPO past midnight. I appreciated the consult. Please contact me if you have any further questions or concerns.
[2017-03-27] MEDS: VORICONAZOLE IV SCH ×2 (11:06→21:51)
[2017-03-27] MEDS: SODIUM CHLORIDE 0.9% IV SCH ×2 (11:06→21:51)
[2017-03-27] MEDS ORDERED: MAGNESIUM SULFATE 1GM / D5W 1 GM in PREMIXED IN D5W 100 ML IV ONE (12:00)
--- NOTE | 2017-03-27 12:51 | Progress Note ---
Internal Med Progress Note Date of Service: Mar 27, 2017. Provider Documentation: SUBJECTIVE: Seen and examined at bedside States feeling better when compared to yesterday Has SOB mainly on exertion Less cough Denies chest pain, dizziness No other complaints OBJECTIVE: Vital Signs-as noted below Physical Exam: Vitals signs as noted above General Appearance:Moderately built and nourished, no apparent distress Head: normocephalic, Atraumatic Eyes: normal inspection, EOMI, PERRL Neck: supple, Trachea midline Respiratory/Chest: Normal breath sounds, CTA Cardiovascular: S1, S2, No murmur Abdomen/GI:Soft, Non tender, Bowel sounds present Extremities/Musculoskelatal:normal inspection, no edema Neurologic/Psych:AAOX3, grossly no focal neurological deficits Skin: normal color, warm Lab data as noted below. ASSESSMENT & PLAN: Acute on Chronic Respiratory Failure: DD: angioinvasive aspergillosis, septic emboli H/O COPD CTA: No PE, Multifocal nodular opacities involving all 5 lobes with a basilar predominance. Reactive mediastinal and bilateral hilar lymph nodes Oxygen support, Duonebs Start broad spectrum IV Antibiotics (Vanco and Zosyn) and Voriconazole for possible aspergillosis Blood and sputum cultures: pending Appreciate Pulmonary and ID Input Influenza PCR: negative Continue PO prednisone ECHO pending Planned for Bronchoscopy in AM Fungal Serology pending Elevated D-dimer: CTA: No PE Venous Doppler LE: No DVT Prolonged QTC: Avoid QTC prolonging meds repeat EKG: QTC normalized Rheumatoid Arthritis: Follows with Rheumatology as outpatient Hold Methotrexate and Actemra for now continue prednisone GERD: Continue PPI H/O Prediabetes A1C: 6.0 DVT Px: Heparin SQ Code Status: Full Code Disposition: Monitor in Tele PROCEDURES CTA: 1. No evidence of pulmonary emboli. 2. Multifocal nodular opacities involving all 5 lobes with a basilar predominance. These are most concerning for an infectious etiology especially given the presence of bronchial wall thickening, atypical and fungal infections such as angioinvasive aspergillosis not excluded. Differential considerations include septic emboli or hemorrhagic metastases among other etiologies. 3. Reactive mediastinal and bilateral hilar lymph nodes. Vital Signs: Date Time Temp Pulse Resp B/P (MAP) Pulse Ox O2 Delivery O2 Flow Rate FiO2 03/27/17 11:07 36.8 93 20 130/83 (99) 94 2.0 03/27/17 08:00 Nasal Cannula 2.0 03/27/17 07:12 36.7 90 20 125/77 (93) 96 Nasal Cannula 2.0 03/27/17 06:58 84 18 97 Nasal Cannula 5.0 03/27/17 04:00 36.8 77 16 113/74 (87) 99 5.0 03/27/17 04:00 Nasal Cannula 5.0 03/27/17 02:45 82 20 91 Nasal Cannula 5.0 03/27/17 00:01 36.9 87 18 104/71 (82) 95 5.0 03/26/17 23:36 84 20 91 Nasal Cannula 5.0 03/26/17 23:20 89 91 Nasal Cannula 5.0 Humidified Oxygen 03/26/17 23:15 91 Nasal Cannula 5.0 03/26/17 20:37 36.7 101 19 143/87 90 Nasal Cannula 2.0 03/26/17 19:54 80 20 92 Nasal Cannula 4.0 03/26/17 19:09 36.9 105 24 144/82 95 03/26/17 18:05 105 24 03/26/17 16:21 108 03/26/17 16:19 36.9 102 22 125/86 95 Nasal Cannula 2.0 03/26/17 15:50 93 Nasal Cannula 2.0 03/26/17 15:38 95 Nasal Cannula 2.0 03/26/17 15:17 36.9 97 20 157/79 87 Room Air Lab Results: Results Past 24 Hours Test 03/26/17 15:50 03/26/17 15:59 03/26/17 19:55 03/26/17 20:16 Range/Units White Blood Count 5.65 4.8-10.8 K/uL Red Blood Count 5.47 4.2-5.4 M/uL Hemoglobin 17.6 12.0-16.0 g/dL Hematocrit 53.1 37-47 % Mean Corpuscular Volume 97.1 80-100 fL Mean Corpuscular Hemoglobin 32.2 25-34 pg Mean Corpuscular Hemoglobin Concent 33.1 32-36 g/dl Platelet Count 143 130-400 K/uL Neutrophils (%) (Auto) 73.1 % Lymphocytes (%) (Auto) 13.8 % Monocytes (%) (Auto) 9.0 % Eosinophils (%) (Auto) 2.8 % Basophils (%) (Auto) 0.4 % Neutrophils # (Auto) 4.13 1.4-6.5 K/uL Lymphocytes # (Auto) 0.78 1.2-3.4 K/uL Monocytes # (Auto) 0.51 0.11-0.59 K/uL Eosinophils # (Auto) 0.16 0-0.5 K/uL Basophils # (Auto) 0.02 0-0.2 K/uL Immature Granulocyte % (Auto) 0.9 % Immature Granulocyte # (Auto) 0.05 0.00-0.02 K/uL Prothrombin Time 10.3 9.0-12.0 SECONDS Prothromb Time International Ratio 1.0 0.9-1.1 Activated Partial Thromboplast Time 21.5 21.0-31.0 SECONDS Partial Thromboplastin Ratio 0.8 Sodium Level 142 136-145 mmol/L Potassium Level 3.4 3.5-5.1 mmol/L Chloride Level 105 98-107 mmol/L Carbon Dioxide Level 32 21-32 mmol/L Anion Gap 5.0 3-11 mmol/L Blood Urea Nitrogen 11 7-18 mg/dl Creatinine 0.78 0.60-1.20 mg/dl Est Creatinine Clear Calc Drug Dose 73.7 ml/min Estimated GFR () 96.4 Estimated GFR (Non- 83.2 BUN/Creatinine Ratio 13.7 10-20 Random Glucose 90 70-99 mg/dl Calcium Level 9.0 8.5-10.1 mg/dl Pro-B-Type Natriuretic Peptide 43 0-900 pg/ml Bedside D-Dimer > 450 0-450 ng/mlFEU Bedside Troponin I < 0.030 0-0.045 ng/ml Venous Blood pH 7.40 7.36-7.41 Venous Blood Partial Pressure CO2 49 38.0-50.0 mmHg Venous Blood Partial Pressure O2 54 mmHg Venous Blood HCO3 29 mmol/L Venous Blood Oxygen Saturation 86.1 % Venous Blood Base Excess 3.3 mEq/L Influenza Type A (RT-PCR) Neg for Influ A NEG Influenza Type B (RT-PCR) Neg for Influ B NEG Test 03/26/17 21:59 03/27/17 04:06 03/27/17 10:05 03/27/17 12:15 Range/Units Troponin I < 0.015 < 0.015 0-0.045 ng/ml Hepatitis C Antibody Screen NEG NEG White Blood Count 8.87 4.8-10.8 K/uL Red Blood Count 4.64 4.2-5.4 M/uL Hemoglobin 15.3 12.0-16.0 g/dL Hematocrit 45.3 37-47 % Mean Corpuscular Volume 97.6 80-100 fL Mean Corpuscular Hemoglobin 33.0 25-34 pg Mean Corpuscular Hemoglobin Concent 33.8 32-36 g/dl Platelet Count 157 130-400 K/uL Mean Platelet Volume 10.2 7.4-10.4 fL Neutrophils (%) (Auto) 93.8 % Lymphocytes (%) (Auto) 4.6 % Monocytes (%) (Auto) 1.2 % Eosinophils (%) (Auto) 0.0 % Basophils (%) (Auto) 0.1 % Neutrophils # (Auto) 8.31 1.4-6.5 K/uL Lymphocytes # (Auto) 0.41 1.2-3.4 K/uL Monocytes # (Auto) 0.11 0.11-0.59 K/uL Eosinophils # (Auto) 0.00 0-0.5 K/uL Basophils # (Auto) 0.01 0-0.2 K/uL RDW Standard Deviation 61.0 36.4-46.3 fL RDW Coefficient of Variation 16.9 11.5-14.5 % Immature Granulocyte % (Auto) 0.3 % Immature Granulocyte # (Auto) 0.03 0.00-0.02 K/uL Anisocytosis PRESENT Sodium Level 140 136-145 mmol/L Potassium Level 3.7 3.5-5.1 mmol/L Chloride Level 106 98-107 mmol/L Carbon Dioxide Level 28 21-32 mmol/L Anion Gap 6.0 3-11 mmol/L Blood Urea Nitrogen 10 7-18 mg/dl Creatinine 0.72 0.60-1.20 mg/dl Est Creatinine Clear Calc Drug Dose 79.8 ml/min Estimated GFR () 106.2 Estimated GFR (Non- 91.7 BUN/Creatinine Ratio 14.4 10-20 Random Glucose 119 70-99 mg/dl Calcium Level 8.1 8.5-10.1 mg/dl Magnesium Level 1.7 1.8-2.4 mg/dl Microbiology Results 03/27/17 Cryptococcal Antigen - Final, Complete 03/26/17 Blood Culture, Received Pending 03/26/17 Blood Culture, Received Pending 03/27/17 Gram Stain, Received Pending 03/27/17 Sputum Culture, Received Pending
--- NOTE | 2017-03-27 16:09 | Pharmacy Progress Note ---
Pharmacy Abx Initial Consult Date of Service Mar 27, 2017. Pharmacy Dosing Scope Date of Consult: 03/27/16 Consultation requested by: Dr. Pérez Pharmacy is consulted to initiate Vancomycin/Zosyn IV dosing therapy, order appropriate labs and adjust drug dose/frequency. Subjective The patient is a 57 year old female admitted on Mar 26, 2017 at 18:38. Objective Height (Feet): 5 Height (Inches): 3.00 Weight (Kilograms): 71.800 Vital Signs (Past 12Hrs) Vital Signs Past 12 Hours Date Time Temp Pulse Resp B/P (MAP) Pulse Ox O2 Delivery O2 Flow Rate FiO2 03/27/17 15:50 36.3 100 22 131/75 (93) 93 Nasal Cannula 2.0 03/27/17 14:10 85 18 94 Nasal Cannula 2.0 03/27/17 12:00 Nasal Cannula 2.0 03/27/17 11:07 36.8 93 20 130/83 (99) 94 2.0 03/27/17 08:00 Nasal Cannula 2.0 03/27/17 07:12 36.7 90 20 125/77 (93) 96 Nasal Cannula 2.0 03/27/17 06:58 84 18 97 Nasal Cannula 5.0 Lab Results (24Hrs) Laboratory Tests (24 Hours) Test 03/27/17 04:06 White Blood Count 8.87 K/uL (4.8-10.8) Red Blood Count 4.64 M/uL (4.2-5.4) Hemoglobin 15.3 g/dL (12.0-16.0) Hematocrit 45.3 % (37-47) Mean Corpuscular Volume 97.6 fL (80-100) Mean Corpuscular Hemoglobin 33.0 pg (25-34) Mean Corpuscular Hemoglobin Concent 33.8 g/dl (32-36) Platelet Count 157 K/uL (130-400) Mean Platelet Volume 10.2 fL (7.4-10.4) Neutrophils (%) (Auto) 93.8 % Lymphocytes (%) (Auto) 4.6 % Monocytes (%) (Auto) 1.2 % Eosinophils (%) (Auto) 0.0 % Basophils (%) (Auto) 0.1 % Neutrophils # (Auto) 8.31 K/uL (1.4-6.5) H Lymphocytes # (Auto) 0.41 K/uL (1.2-3.4) L Monocytes # (Auto) 0.11 K/uL (0.11-0.59) Eosinophils # (Auto) 0.00 K/uL (0-0.5) Basophils # (Auto) 0.01 K/uL (0-0.2) Micro Results Date/Time Source Procedure Growth Status 03/27/17 10:05 Blood Cryptococcal Antigen - Final Complete 03/26/17 15:50 Blood Blood Culture Pending Received 03/26/17 15:45 Blood Blood Culture Pending Received 03/27/17 05:00 Sputum Expectorated Sputum Gram Stain - Final Resulted 03/27/17 05:00 Sputum Expectorated Sputum Sputum Culture Pending Resulted Risk Factors for Resistance * Immunocompromised Assessment & Plan Assessment 57 year old female initiated on broad spectrum IV antibiotics: Vancomycin/Zosyn/ Voriconazole. Pt with extensive infiltration involving all lobes of lung. ID and pulm following. Cultures pending. Plan Vancomycin IV * Loading dose: 1750 mg (25 mg/kg) * Maintenance dose: 1000 mg IV (15 mg/kg) every 12 hours * Goal trough level for lung source: 15 to 20 mcg/mL * Trough level ordered for 03/28/17 @0730 Piperacillin/tazobactam * 3.375 g bolus administered over 30 minutes, then 3.375 g IV extended infusion every 8 hours for CrCl greater than 20 mL/min OR every 12 hours for CrCl 20 mL/ min or less and dialysis. Voriconazole * 430 mg (6mg/kg) IV every 12 hours for 24 hours * 280 mg (4mg/kg) IV every 12 hours ongoing Pharmacy will continue to follow and will adjust dose/frequency as necessary. Thank you.
--- NOTE | 2017-03-27 19:00 | ECHOCARDIOGRAM REPORT ---
*NOTICE TO RECEIVING LIBERTARIAN AGENCY This information is strictly Confidential and protected under [place] law. [place] law prohibits you from making any further disclosure of this information unless further disclosure is expressly permitted by the written consent of the person to whom it pertains or is authorized by law. A general authorization for the release of medical or other information is not sufficient for this purpose. Hospital accepts no responsibility if the information is made available to any other person, INCLUDING THE PATIENT. Interpretation Summary * Name: LUIS ALFREDO DEL CID Study Date: 03/27/2017 08:26 AM BP: 113/74 mmHg * Patient Location: C.2T\S\E216\S\1 HR: 84 * : 1960 (M/d/yyyy) Gender: Female Height: 63 in * Age: 57 yrs Ethnicity: CA Weight: 158 lb * Ordering Physician: Remy Pérez * Referring Physician: Cristina Mahajan PA-C * Performed By: Paradise Issa RDCS * * Reason For Study: POSSIBLE SEPTIC EMBOLI * BSA: 1.7 m2 * The study was technically limited. * There is no comparison study available. * -- Conclusions -- * The left ventricle is hyperdynamic. * Ejection Fraction = >70 %. * The left ventricular wall motion is normal. * There is trace tricuspid regurgitation. * Pulse wave TDI of the anterior and posterior mitral annulas demonstrates normal LV relaxation * Poorly visualized valvular structures. Procedure Details * A complete two-dimensional transthoracic echocardiogram was performed (2D, M-mode, Doppler and color flow Doppler). Left Ventricle * The left ventricle is normal in size. * There is no thrombus. * There is normal left ventricular wall thickness. * Ejection Fraction = >70 %. * The left ventricle is hyperdynamic. * The left ventricular wall motion is normal. Right Ventricle * The right ventricle is normal size. * The right ventricular systolic function is normal as assessed by tricuspid annular plane systolic excursion (TAPSE) (normal >1.5 cm). Atria * The left atrial size is normal. * Right atrial size is normal. * There is no evidence of atrial septal defect, but resolution does not allow assessment for a patent foramen ovale. Mitral Valve * The mitral valve is not well visualized. * There is no mitral valve stenosis. * Significant mitral regurgitation is absent. Tricuspid Valve * The tricuspid valve is not well visualized. * There is no tricuspid stenosis. * There is trace tricuspid regurgitation. * Doppler findings do not suggest pulmonary hypertension. Aortic Valve * The aortic valve is not well visualized. * Aortic stenosis is absent. * There is no significant aortic regurgitation. Pulmonic Valve * The pulmonary valve is not well seen, but the Doppler examination is normal without significant regurgitation or stenosis. Great Vessels * The aortic root is normal size. Pericardium/Pleural * There is no pericardial effusion. Great Vessels * Normal inferior vena cava diameter and respiratory variation suggests normal central venous pressure. Left Ventricular Diastolic Function * Pulse wave TDI of the anterior and posterior mitral annulas demonstrates normal LV relaxation MMode 2D Measurements and Calculations IVSd 0.99 cm IVSs 1.4 cm LVIDd 3.6 cm LVIDs 2.2 cm LVPWd 1.1 cm LVPWs 1.5 cm IVS/LVPW 0.89 FS 36.8 % EDV(Teich) 52.8 ml ESV(Teich) 17.1 ml EF(Teich) 67.6 % EDV(cubed) 44.9 ml ESV(cubed) 11.3 ml EF(cubed) 74.8 % % IVS thick 44.7 % % LVPW thick 32.8 % LV mass(C)d 113.9 grams LV mass(C)dI 65.1 grams/m\S\2 LV mass(C)s 105.3 grams LV mass(C)sI 60.2 grams/m\S\2 SV(Teich) 35.7 ml SI(Teich) 20.4 ml/m\S\2 SV(cubed) 33.6 ml SI(cubed) 19.2 ml/m\S\2 LA dimension 3.3 cm LVAd ap4 23.0 cm\S\2 LVLd ap4 8.5 cm EDV(MOD-sp4) 50.5 ml EDV(sp4-el) 52.8 ml LVAs ap4 10.0 cm\S\2 LVLs ap4 6.6 cm ESV(MOD-sp4) 13.4 ml ESV(sp4-el) 13.0 ml EF(MOD-sp4) 73.5 % EF(sp4-el) 75.3 % LVAd ap2 19.8 cm\S\2 LVLd ap2 8.3 cm EDV(MOD-sp2) 40.0 ml EDV(sp2-el) 40.3 ml LVAs ap2 10.4 cm\S\2 LVLs ap2 6.9 cm ESV(MOD-sp2) 14.1 ml ESV(sp2-el) 13.2 ml EF(MOD-sp2) 64.7 % EF(sp2-el) 67.1 % LVLd %diff -2.41 % EDV(MOD-bp) 44.3 ml LVLs %diff 5.0 % ESV(MOD-bp) 14.1 ml EF(MOD-bp) 68.2 % SV(MOD-sp4) 37.2 ml SI(MOD-sp4) 21.2 ml/m\S\2 SV(MOD-sp2) 25.9 ml SI(MOD-sp2) 14.8 ml/m\S\2 SV(MOD-bp) 30.2 ml SI(MOD-bp) 17.3 ml/m\S\2 SV(sp4-el) 39.7 ml SI(sp4-el) 22.7 ml/m\S\2 SV(sp2-el) 27.1 ml SI(sp2-el) 15.5 ml/m\S\2 Doppler Measurements and Calculations MV E max carla 80.9 cm/sec MV A max carla 99.8 cm/sec MV E/A 0.81 MV dec time 0.26 sec Ao V2 max 210.6 cm/sec Ao max PG 17.7 mmHg Ao max PG (full) 4.2 mmHg LV V1 max PG 13.6 mmHg LV V1 max 184.2 cm/sec TR max carla 268.8 cm/sec
[2017-03-27] MEDS: RANITIDINE HCL 150 MG TAB PO SCH (20:56)
[2017-03-28] VITALS (10 sets, daily range): BP systolic 109–133; BP diastolic 67–76; PULSE 67–103; TEMP 36.5–37.1; O2SAT 94–98
[2017-03-28] MEDS ORDERED: COUGH DROP (SUGAR FREE) LOZ 24 LOZ/1 BOX ONE (01:31)
[2017-03-28] MEDS: PIPERACILL/TAZOBAC IV 3.375 GM in DEXTROSE 5% 100ML IV SCH ×3 (01:42→18:16)
[2017-03-28] MEDS: ALBUTEROL 0.083% NEBU SOLN 3 ML VIAL INH SCH ×4 (01:55→19:39)
[2017-03-28] MEDS: BENZONATATE 100MG CAP PO PRN (02:09)
[2017-03-28] MEDS: HEPARIN SOD 5000 UNIT/0.5 ML CARP SQ SCH ×3 (06:04→23:40)
[2017-03-28 07:04] LABS: BASO % 0.2 %; BASO ABS # 0.02 K/uL (0-0.2); EOS % 0.1 %; EOS ABS # 0.01 K/uL (0-0.5); HEMATOCRIT 47.9 % (37-47); HEMOGLOBIN 15.8 g/dL (12.0-16.0); IG# 0.04 K/uL (0.00-0.02); LYMPH % 8.4 %; LYMPH ABS # 0.99 K/uL (1.2-3.4); MEAN CELL VOLUME 98.8 fL (80-100); MEAN CORPUSCULAR HEMOGLOBIN 32.6 pg (25-34); MEAN PLATELET VOLUME 10.8 fL (7.4-10.4); MONO % 9.2 %; MONO ABS # 1.09 K/uL (0.11-0.59); NEUT % 81.8 %; NEUT ABS # 9.64 K/uL (1.4-6.5); PLATELET COUNT 192 K/uL (130-400); RED CELL DISTRIBUTION WIDTH CV 16.9 % (11.5-14.5); RED CELL DISTRIBUTION WIDTH SD 60.8 fL (36.4-46.3); WHITE BLOOD COUNT 11.79 K/uL (4.8-10.8)
[2017-03-28 07:28] LABS: CALCIUM 8.9 mg/dl (8.5-10.1); CREATININE 0.88 mg/dl (0.60-1.20); POTASSIUM 3.6 mmol/L (3.5-5.1)
[2017-03-28] MEDS ORDERED: VANCOMYCIN TROUGH ONE ×2 (07:30→09:30)
--- NOTE | 2017-03-28 08:43 | Pre Sedation Assessment ---
Pre Sedation Assessment General Date of Sedation: Mar 28, 2017. Vital Signs Past 12 Hours Date Time Temp Pulse Resp B/P (MAP) Pulse Ox O2 Delivery O2 Flow Rate FiO2 03/28/17 08:00 Nasal Cannula 2.0 03/28/17 07:58 85 20 96 Nasal Cannula 2.0 03/28/17 07:58 36.8 84 18 120/74 (89) 96 03/28/17 04:00 Nasal Cannula 2.0 03/28/17 03:20 36.5 80 16 121/67 (85) 95 2.0 03/28/17 01:55 67 20 98 Nasal Cannula 2.0 03/28/17 00:00 Room Air 2.0 Nasal Cannula 03/27/17 23:30 36.8 87 18 149/79 (102) 94 2.0 Review Cardiovascular: regular rate, rhythm, no edema, no gallop, no JVD, no murmur, normal peripheral pulses Lungs: no respiratory distress, no accessory muscle use, + crackles Pre-Sedation Airway Assessment Smoking Status: Never Smoker Hx of Sleep Apnea: No Hx of difficult intubation: No Short Thick Neck: No Thyro-mental Distance: < or =3 Finger Breadths Oral Cavity: Dentures, WNL Mallampati Classification: Class III ASA Classification: Class III Procedure Planning Contraindications for Sedation: None Current Medications Reviewed: Yes Notes The planned sedation has been discussed with the patient. Informed Consent was obtained. I have identified the patient, determined the appropriateness of sedation and have assessed the patient immediately prior to the procedure. All medicine(s) and interventions are by my order.
[2017-03-28] MEDS: BUDESONIDE/FORMOTEROL FUMARATE 160/4.5 60 PUFFS/INHALER INH SCH ×2 (09:00→20:20)
--- NOTE | 2017-03-28 09:16 | Pulmonology Progress Note ---
Pulmonary Progress Note Date of Service Mar 28, 2017. Attending Dr. Ng Subjective Patient seen and examined at bedside. She states that she had a good night, however she did have a "coughing spell" overnight. She is feeling a little bit better from a respiratory standpoint. Still having having shortness of breath on exertion. Objective VS reviewed. Currently on 2L NC. Cumulative balance 1.6 L positive. Gen: AAOx3, no acute respiratory distress, speaking in full sentences without dyspnea CVS: S1, S2, RRR Lungs: crackles at bases, no wheezes, good air entry otherwise Abd: soft/NT/ND/BS+ Ext: no edema bilaterally, no clubbing, no cyanosis Labs reviewed. Imaging reviewed. Medications reviewed. Coags--within normal limits. Sputum culture--pending Blood culture--no growth to date cryptococcus antibody--negative Currently on voriconazole, IV q12h, Zosyn 3.375 q8h, Vancomycin 1 g q12h, Tessalon perles, Spiriva 1 puff daily, Prednisone 15 mg PO daily, Symbicort 160 /4.5 2 puffs BID, Ranitidine 300mg qHS and Protonix 40 mg daily, Heparin 5000 U q8H Assessment & Plan Acute hypoxic respiratory failure COPD Abnormal CT is a 57-year-old female with past medical history of COPD with FEV1 of about 40%. She follows up with Dr. Wilder for chronic cough and reactive airway disease. She is on chronic prednisone for rheumatoid arthritis. She was recently discontinued on Humira as well as methotrexate due to recent upper respiratory infection. She recently resumed methotrexate. Now presents with increasing cough, dyspnea on exertion and wheezing. Patient now with hypoxemic respiratory failure. CT of the chest show multifocal patchy airspace opacities. This could represent a community-acquired bacterial infection. However patient is on chronic steroid use as well as biologic medications. I would consider her to be an immunocompromised state due to this. Therefore these opacities could also represent mycobacteria/fungal infections. Patient is currently NPO for bronchoscopy. Continue his supplemental oxygen to maintain an SaO2 above 90%. Sputum cultures for bacteria pending. ID is on board and following closely. Serology has been sent for 1, 3 beta D glucan, galactomannan, Aspergillus antibody still pending. Continue with broad-spectrum antibiotics. Continue with empiric voriconazole at this time while further workup is being done. Continue with corticosteroids as well as nebulizers every 6 hours standing dose and when necessary. Continue with PPI, H2 rosmery Continue with inhaled nasal corticosteroid as well Data Medications: Current Inpatient Medications Medications (Trade) Dose Ordered Sig/Bryan Route Start Time Stop Time Status Last Admin Dose Admin Ioversol (Optiray 320) 100 ml UD PRN IV 03/26/17 16:30 03/30/17 16:29 Heparin Sodium (Porcine) (Heparin Sq 5000 Unit/0.5ml) 5,000 unit Q8 SQ 03/26/17 22:00 04/25/17 21:59 03/28/17 06:04 5,000 UNIT Acetaminophen (Tylenol Tab) 650 mg Q4H PRN PO 03/26/17 18:45 04/25/17 18:44 03/26/17 19:49 650 MG Albuterol Sulfate (Ventolin 0.083% 2.5MG/3ML Neb) 2.5 mg Q6R INH 03/26/17 21:00 04/25/17 20:59 03/28/17 07:20 2.5 MG Budesonide/ Formoterol Fumarate (Symbicort 160/ 4.5 Inh) 2 puffs BID INH 03/26/17 21:00 04/25/17 20:59 03/27/17 20:56 2 PUFFS Fluticasone Propionate (Flonase Nasal [place]) 2 sprays QAM NA 03/27/17 09:00 04/26/17 08:59 03/27/17 08:15 2 SPRAYS Prednisone (PredniSONE TAB) 15 mg DAILY PO 03/27/17 09:00 04/26/17 08:59 03/27/17 08:15 15 MG Ranitidine HCl (zANTac TAB) 300 mg HS PO 03/26/17 21:00 04/25/17 20:59 03/27/17 20:56 300 MG Tiotropium [place] (Spiriva Handihaler Inhaler) 1 puff DAILY INH 03/27/17 09:00 04/26/17 08:59 03/27/17 08:14 1 PUFF Cholestyramine Resin (Questran Powder Light) 4 gm BID PO 03/26/17 21:00 04/25/17 20:59 03/27/17 20:55 4 GM Pantoprazole Sodium (Protonix Tab) 40 mg QAM PO 03/27/17 09:00 04/26/17 08:59 03/27/17 08:15 40 MG Albuterol/ Ipratropium (Duoneb) 3 ml Q4R PRN INH 03/26/17 19:00 04/25/17 18:59 03/26/17 23:35 3 ML Promethazine HCl 12.5 mg/Sodium Chloride 50.5 ml @ 204 mls/hr Q6H PRN IV 03/26/17 19:15 04/25/17 19:14 Vancomycin HCl (Consult) 1 ea UD PRN N/A 03/26/17 20:00 04/25/17 19:59 Piperacillin Sod/ Tazobactam Sod (Consult) 1 ea UD PRN N/A 03/26/17 20:00 04/25/17 19:59 Miscellaneous Information 1 ea UD PRN N/A 03/26/17 20:00 04/25/17 19:59 Piperacillin Sod/ Tazobactam Sod 3.375 gm/Dextrose 115 ml @ 28.75 mls/ hr Q8H IV 03/27/17 02:00 04/02/17 17:59 03/28/17 01:42 28.75 MLS/HR Voriconazole 280 mg/Sodium Chloride 100 ml @ 50 mls/hr Q12H IV 03/27/17 22:00 04/02/17 21:59 03/27/17 21:51 50 MLS/HR Vancomycin HCl 1000 mg/Sodium Chloride 270 ml @ 125 mls/hr Q12H IV 03/27/17 08:00 04/02/17 19:59 03/27/17 21:51 125 MLS/HR Diphenhydramine HCl (Benadryl Cap) 25 mg Q6H PRN PO 03/27/17 14:00 04/26/17 13:59 03/27/17 20:55 25 MG Metoprolol Succinate (Toprol Xl Tab) 12.5 mg QAM PO 03/28/17 09:00 04/26/17 08:59 Benzonatate (Tessalon Perles Cap) 100 mg Q8H PRN PO 03/28/17 02:00 04/27/17 01:59 03/28/17 02:09 100 MG Vital Signs: Date Time Temp Pulse Resp B/P (MAP) Pulse Ox O2 Delivery O2 Flow Rate FiO2 03/28/17 08:00 Nasal Cannula 2.0 03/28/17 07:58 85 20 96 Nasal Cannula 2.0 03/28/17 07:58 36.8 84 18 120/74 (89) 96 03/28/17 04:00 Nasal Cannula 2.0 03/28/17 03:20 36.5 80 16 121/67 (85) 95 2.0 03/28/17 01:55 67 20 98 Nasal Cannula 2.0 03/28/17 00:00 Room Air 2.0 Nasal Cannula 03/27/17 23:30 36.8 87 18 149/79 (102) 94 2.0 03/27/17 20:00 Nasal Cannula 2.0 03/27/17 19:28 92 18 96 Nasal Cannula 2.0 03/27/17 19:04 36.7 83 22 139/81 (100) 93 Nasal Cannula 2.0 03/27/17 16:00 Nasal Cannula 2.0 03/27/17 15:50 36.3 100 22 131/75 (93) 93 Nasal Cannula 2.0 03/27/17 14:10 85 18 94 Nasal Cannula 2.0 03/27/17 12:00 Nasal Cannula 2.0 03/27/17 11:07 36.8 93 20 130/83 (99) 94 2.0 Laboratory Results: Last 24 Hours Test 03/27/17 10:05 03/27/17 12:15 03/28/17 06:23 White Blood Count 11.79 K/uL Red Blood Count 4.85 M/uL Hemoglobin 15.8 g/dL Hematocrit 47.9 % Mean Corpuscular Volume 98.8 fL Mean Corpuscular Hemoglobin 32.6 pg Mean Corpuscular Hemoglobin Concent 33.0 g/dl Platelet Count 192 K/uL Mean Platelet Volume 10.8 fL Neutrophils (%) (Auto) 81.8 % Lymphocytes (%) (Auto) 8.4 % Monocytes (%) (Auto) 9.2 % Eosinophils (%) (Auto) 0.1 % Basophils (%) (Auto) 0.2 % Neutrophils # (Auto) 9.64 K/uL Lymphocytes # (Auto) 0.99 K/uL Monocytes # (Auto) 1.09 K/uL Eosinophils # (Auto) 0.01 K/uL Basophils # (Auto) 0.02 K/uL RDW Standard Deviation 60.8 fL RDW Coefficient of Variation 16.9 % Immature Granulocyte % (Auto) 0.3 % Immature Granulocyte # (Auto) 0.04 K/uL Sodium Level 144 mmol/L Potassium Level 3.6 mmol/L Chloride Level 109 mmol/L Carbon Dioxide Level 30 mmol/L Anion Gap 5.0 mmol/L Blood Urea Nitrogen 15 mg/dl Creatinine 0.88 mg/dl Est Creatinine Clear Calc Drug Dose 65.2 ml/min Estimated GFR () 83.4 Estimated GFR (Non- 71.9 BUN/Creatinine Ratio 16.6 Random Glucose 98 mg/dl Calcium Level 8.9 mg/dl Magnesium Level 2.2 mg/dl
[2017-03-28] MEDS ORDERED: LIDOCAINE 4% INH SOLN 4 ML BTL TOP ONE (11:20)
[2017-03-28] MEDS ORDERED: LIDOCAINE HCL 2% LOCAL 50ML VIAL INSTIL ONE (11:20)
[2017-03-28] MEDS ORDERED: LIDOCAINE VISCOUS 2% 100ML TOP ONE (11:20)
[2017-03-28] MEDS ORDERED: MIDAZOLAM HCL 5 MG/ML 1 ML VIAL IV ONE (11:20)
[2017-03-28] MEDS ORDERED: FENTANYL CITRATE INJ 50 MCG/1 ML 2 ML VIAL IV ONE (11:20)
--- NOTE | 2017-03-28 11:27 | Procedure Note ---
Procedure Note Date of Service Mar 28, 2017. Procedure Note Procedure: Bronchoscopy, conscious sedation, Consent: Obtained through the patient placed into the chart Pre-procedural diagnosis: Pneumonia Post-procedural diagnosis: Pneumonia Start time: 1041 End time: 1110 Total time: 31 minutes Analgesia: 2% liquid lidocaine: Via nebulizer 4% gel lidocaine: Via right and left nares 2% liquid lidocaine: Via bronchoscopy Sedation: Versed IV: 4 mg Fentanyl IV: 100 g Procedure: The Olympus video bronchoscope was used for this procedure and passed down through the oropharyx Glottis: Anatomically within normal limits Vocal cords: Proper abduction and abduction, anatomically within normal limits Subglottis/trachea/Becky: Anatomically within normal limits, there was white frothy mucus present Right bronchial tree: Right mainstem bronchus: Anatomically within normal limits Right upper lobe: Anatomically within normal limits Bronchus intermedius: Anatomically within normal limits Right middle lobe: Anatomically within normal limits Right lower lobe: Anatomically within normal limits Findings: Erythematous, friable mucosa present, mucus present in the RUL that was suctioned until cleared. No endobronchial lesions seen Left bronchial tree: Left mainstem bronchus: Anatomically within normal limits Left upper lobe: Anatomically within normal limits Lingula: Anatomically within normal limits Left lower lobe: Anatomically within normal limits Findings: Erythematous, friable mucosa present, mucus throughout. No endobronchial lesions seen. There was bleeding from LLL, cold saline was administered with hemostasis. Bronchial alveolar lavage: LLL EBL: 5 cc Complications: None
[2017-03-28] MEDS ORDERED: NURSING VERBAL MED ORDER ONE (11:30)
[2017-03-28] MEDS: SODIUM CHLORIDE 0.9% IV SCH ×2 (12:05→22:12)
[2017-03-28] MEDS: VORICONAZOLE IV SCH ×2 (12:05→22:12)
--- NOTE | 2017-03-28 12:13 | Pharmacy Progress Note ---
Pharmacy Abx Dose Short Note Date of Service Mar 28, 2017. Assessment & Plan Assessment 57 year old female receiving Vancomycin, zosyn and voriconazole for treatment of pneumonia. Day # 3 of antimicrobial therapy. * Blood cultures have NGTD * Suptum cultures pending * Renal function stable Plan Vancomycin * Trough level of 10.4 mcg/mL is subtherapeutic * doses given on time. * level does not reflect steady state. * Pt was off the floor this morning and did not receive am dose of vanc...dosing adjusted accordingly. * Change to 1500 mg (21mg/kg) IV every 12 hours * Goal trough level for pneumonia : 15 to 20 mcg/mL * Trough level ordered for: 03/29 @1330 Zosyn * Continue 3.375gm IV q 8 hours Voriconazole * Continue 280mg IV q 12 hours Pharmacy will continue to follow and will adjust dose/frequency as necessary. Thank you.
--- NOTE | 2017-03-28 12:42 | DIAGNOSTIC IMAGING REPORT ---
CHEST ONE VIEW PORTABLE CLINICAL HISTORY: 57 years-old Female presenting with POST BRONCH. TECHNIQUE: Portable upright AP view of the chest was obtained. COMPARISON: 03/26/2017. FINDINGS: Cardiomediastinal silhouette normal. Mildly prominent lung markings at the lung bases with nodular opacities. No pleural effusion or pneumothorax.. Possible old right rib fracture. Upper abdomen normal. IMPRESSION: 1. Basilar predominant nodular opacities. 2. No pneumothorax. Electronically signed by: Franklin Walters M.D. 03/28/2017 12:41 PM Dictated Date/Time: 03/28/2017 12:39 PM
[2017-03-28] MEDS: CHOLESTYRAMINE LIGHT 4 GM PKT PO SCH ×2 (13:55→21:42)
[2017-03-28] MEDS: METOPROLOL SUCC 25MG EXT REL TAB PO SCH (13:57)
[2017-03-28] MEDS: PANTOprazole SOD 40 MG TAB PO SCH (13:58)
--- NOTE | 2017-03-28 13:59 | Progress Note ---
Internal Med Progress Note Date of Service: Mar 28, 2017. Provider Documentation: SUBJECTIVE: Seen and examined at bedside Patient bronchoscopy this morning States feeling better today Less SOB, cough Denies chest pain, dizziness No other complaints OBJECTIVE: Vital Signs-as noted below Physical Exam: Vitals signs as noted above General Appearance:Moderately built and nourished, no apparent distress Head: normocephalic, Atraumatic Eyes: normal inspection, EOMI, PERRL Neck: supple, Trachea midline Respiratory/Chest: Decreased breath sounds, crackles at bases Cardiovascular: S1, S2, No murmur Abdomen/GI:Soft, Non tender, Bowel sounds present Extremities/Musculoskelatal:normal inspection, no edema Neurologic/Psych:AAOX3, grossly no focal neurological deficits Skin: normal color, warm Lab data as noted below. ASSESSMENT & PLAN: Acute on Chronic Respiratory Failure: DD: angioinvasive aspergillosis, septic emboli H/O COPD S/P Bronchoscopy on 03/28/17 CTA: No PE, Multifocal nodular opacities involving all 5 lobes with a basilar predominance. Reactive mediastinal and bilateral hilar lymph nodes Oxygen support, Duonebs, corticosteroids Continue IV Antibiotics (Vanco and Zosyn) and Voriconazole for now Blood cultures: No growth to date Sputum culture: pending Bronchial cultures obtained Cryptococcal antigen negative Appreciate Pulmonary and ID Input Influenza PCR: negative ECHO: As below Fungal Serology pending Mild leukocytosis likely secondary to steroids Elevated D-dimer: CTA: No PE Venous Doppler LE: No DVT Prolonged QTC: Avoid QTC prolonging meds repeat EKG: QTC normalized Rheumatoid Arthritis: Follows with Rheumatology as outpatient Hold Methotrexate and Actemra for now continue prednisone GERD: Continue PPI H/O Prediabetes A1C: 6.0 DVT Px: Heparin SQ Code Status: Full Code Disposition: Monitor in Tele PROCEDURES ECHO: * The left ventricle is hyperdynamic. * Ejection Fraction = >70 %. * The left ventricular wall motion is normal. * There is trace tricuspid regurgitation. * Pulse wave TDI of the anterior and posterior mitral annulas demonstrates normal LV relaxation * Poorly visualized valvular structures. CTA: 1. No evidence of pulmonary emboli. 2. Multifocal nodular opacities involving all 5 lobes with a basilar predominance. These are most concerning for an infectious etiology especially given the presence of bronchial wall thickening, atypical and fungal infections such as angioinvasive aspergillosis not excluded. Differential considerations include septic emboli or hemorrhagic metastases among other etiologies. 3. Reactive mediastinal and bilateral hilar lymph nodes. Vital Signs: Date Time Temp Pulse Resp B/P (MAP) Pulse Ox O2 Delivery O2 Flow Rate FiO2 03/28/17 13:00 36.8 80 18 126/73 (90) 98 03/28/17 12:00 Nasal Cannula 5.0 03/28/17 12:00 84 20 127/76 (93) 96 Nasal Cannula 5.0 03/28/17 11:30 37.1 103 20 115/76 (89) 94 Nasal Cannula 5.0 03/28/17 11:15 106 22 115/82 94 Nasal Cannula 4 Mask 03/28/17 11:10 106 24 121/89 93 Nasal Cannula 4 Mask 03/28/17 11:05 115 24 125/91 95 Mask 15 03/28/17 11:00 103 22 150/96 95 Mask 15 03/28/17 10:55 115 24 140/82 95 Mask 15 03/28/17 10:50 105 26 128/79 93 Mask 15 03/28/17 10:45 87 20 131/86 95 Mask 03/28/17 10:40 83 18 154/90 98 Mask 03/28/17 10:35 83 18 123/100 98 Mask 03/28/17 10:30 83 18 157/93 98 Mask 03/28/17 08:00 Nasal Cannula 2.0 03/28/17 07:58 85 20 96 Nasal Cannula 2.0 03/28/17 07:58 36.8 84 18 120/74 (89) 96 03/28/17 04:00 Nasal Cannula 2.0 03/28/17 03:20 36.5 80 16 121/67 (85) 95 2.0 03/28/17 01:55 67 20 98 Nasal Cannula 2.0 03/28/17 00:00 Room Air 2.0 Nasal Cannula 03/27/17 23:30 36.8 87 18 149/79 (102) 94 2.0 03/27/17 20:00 Nasal Cannula 2.0 03/27/17 19:28 92 18 96 Nasal Cannula 2.0 03/27/17 19:04 36.7 83 22 139/81 (100) 93 Nasal Cannula 2.0 03/27/17 16:00 Nasal Cannula 2.0 03/27/17 15:50 36.3 100 22 131/75 (93) 93 Nasal Cannula 2.0 03/27/17 14:10 85 18 94 Nasal Cannula 2.0 Lab Results: Results Past 24 Hours Test 03/28/17 00:00 03/28/17 06:23 03/28/17 09:56 Range/Units White Blood Count 11.79 4.8-10.8 K/uL Red Blood Count 4.85 4.2-5.4 M/uL Hemoglobin 15.8 12.0-16.0 g/dL Hematocrit 47.9 37-47 % Mean Corpuscular Volume 98.8 80-100 fL Mean Corpuscular Hemoglobin 32.6 25-34 pg Mean Corpuscular Hemoglobin Concent 33.0 32-36 g/dl Platelet Count 192 130-400 K/uL Mean Platelet Volume 10.8 7.4-10.4 fL Neutrophils (%) (Auto) 81.8 % Lymphocytes (%) (Auto) 8.4 % Monocytes (%) (Auto) 9.2 % Eosinophils (%) (Auto) 0.1 % Basophils (%) (Auto) 0.2 % Neutrophils # (Auto) 9.64 1.4-6.5 K/uL Lymphocytes # (Auto) 0.99 1.2-3.4 K/uL Monocytes # (Auto) 1.09 0.11-0.59 K/uL Eosinophils # (Auto) 0.01 0-0.5 K/uL Basophils # (Auto) 0.02 0-0.2 K/uL RDW Standard Deviation 60.8 36.4-46.3 fL RDW Coefficient of Variation 16.9 11.5-14.5 % Immature Granulocyte % (Auto) 0.3 % Immature Granulocyte # (Auto) 0.04 0.00-0.02 K/uL Sodium Level 144 136-145 mmol/L Potassium Level 3.6 3.5-5.1 mmol/L Chloride Level 109 98-107 mmol/L Carbon Dioxide Level 30 21-32 mmol/L Anion Gap 5.0 3-11 mmol/L Blood Urea Nitrogen 15 7-18 mg/dl Creatinine 0.88 0.60-1.20 mg/dl Est Creatinine Clear Calc Drug Dose 65.2 ml/min Estimated GFR () 83.4 Estimated GFR (Non- 71.9 BUN/Creatinine Ratio 16.6 10-20 Random Glucose 98 70-99 mg/dl Calcium Level 8.9 8.5-10.1 mg/dl Magnesium Level 2.2 1.8-2.4 mg/dl Vancomycin Level Trough 10.4 SEE COMMENT mcg/ml Microbiology Results 03/28/17 Fungal Smear, Received Pending 03/28/17 Fungal Culture, Received Pending 03/28/17 Acid Fast Stain, Received Pending 03/28/17 Mycobacterial Culture, Received Pending 03/28/17 Gram Stain, Received Pending 03/28/17 Bronchoalveolar Lavage Culture, Received Pending 03/27/17 Acid Fast Stain, Received Pending 03/27/17 Mycobacterial Culture, Received Pending
[2017-03-28] MEDS: VANCOMYCIN INJ 1,500 MG in SODIUM CHLORIDE 0.9% 500ML 500 ML IV SCH (14:40)
[2017-03-28] MEDS: FLUTICASONE PROPIONATE NA SPR 16 GM BTL SCH (14:40)
[2017-03-28] MEDS: TIOTROPIUM BROMIDE 5 PUFF/90 MCG INH INH SCH (16:19)
--- NOTE | 2017-03-28 17:33 | Progress Note ---
Subjective Date of Service: Mar 28, 2017. Subjective Pt evaluation today including: conversation w/ patient, conversation w/ family , physical exam, chart review, lab review, review of studies, conversation w/ solution consultant, review of inpatient medication list Patient is status post bronchoscopy, feeling better. BAL cultures pending, biopsy not able to be done because of risk of bleeding. Currently afebrile. Problem List Medical Problems: (1) Bronchitis Status: Acute (2) Hypoxia Status: Acute (3) Pulmonary infection Status: Acute (4) Right rib fracture Status: Acute Review of Systems All Other Systems: Reviewed and Negative Medications Current Inpatient Medications Medications (Trade) Dose Ordered Sig/Bryan Route Start Time Stop Time Status Last Admin Dose Admin Ioversol (Optiray 320) 100 ml UD PRN IV 03/26/17 16:30 03/30/17 16:29 Heparin Sodium (Porcine) (Heparin Sq 5000 Unit/0.5ml) 5,000 unit Q8 SQ 03/26/17 22:00 04/25/17 21:59 03/28/17 14:42 5,000 UNIT Acetaminophen (Tylenol Tab) 650 mg Q4H PRN PO 03/26/17 18:45 04/25/17 18:44 03/26/17 19:49 650 MG Albuterol Sulfate (Ventolin 0.083% 2.5MG/3ML Neb) 2.5 mg Q6R INH 03/26/17 21:00 04/25/17 20:59 03/28/17 14:16 2.5 MG Budesonide/ Formoterol Fumarate (Symbicort 160/ 4.5 Inh) 2 puffs BID INH 03/26/17 21:00 04/25/17 20:59 03/27/17 20:56 2 PUFFS Fluticasone Propionate (Flonase Nasal Mayer) 2 sprays QAM NA 03/27/17 09:00 04/26/17 08:59 03/28/17 14:40 2 SPRAYS Prednisone (PredniSONE TAB) 15 mg DAILY PO 03/27/17 09:00 04/26/17 08:59 03/28/17 13:59 15 MG Ranitidine HCl (zANTac TAB) 300 mg HS PO 03/26/17 21:00 04/25/17 20:59 03/27/17 20:56 300 MG Tiotropium Vernon (Spiriva Handihaler Inhaler) 1 puff DAILY INH 03/27/17 09:00 04/26/17 08:59 03/28/17 16:19 1 PUFF Cholestyramine Resin (Questran Powder Light) 4 gm BID PO 03/26/17 21:00 04/25/17 20:59 03/27/17 20:55 4 GM Pantoprazole Sodium (Protonix Tab) 40 mg QAM PO 03/27/17 09:00 04/26/17 08:59 03/28/17 13:58 40 MG Albuterol/ Ipratropium (Duoneb) 3 ml Q4R PRN INH 03/26/17 19:00 04/25/17 18:59 03/26/17 23:35 3 ML Promethazine HCl 12.5 mg/Sodium Chloride 50.5 ml @ 204 mls/hr Q6H PRN IV 03/26/17 19:15 04/25/17 19:14 Vancomycin HCl (Consult) 1 ea UD PRN N/A 03/26/17 20:00 04/25/17 19:59 Piperacillin Sod/ Tazobactam Sod (Consult) 1 ea UD PRN N/A 03/26/17 20:00 04/25/17 19:59 Miscellaneous Information 1 ea UD PRN N/A 03/26/17 20:00 04/25/17 19:59 Piperacillin Sod/ Tazobactam Sod 3.375 gm/Dextrose 115 ml @ 28.75 mls/ hr Q8H IV 03/27/17 02:00 04/02/17 17:59 03/28/17 12:10 28.75 MLS/HR Voriconazole 280 mg/Sodium Chloride 100 ml @ 50 mls/hr Q12H IV 03/27/17 22:00 04/02/17 21:59 03/28/17 12:05 50 MLS/HR Diphenhydramine HCl (Benadryl Cap) 25 mg Q6H PRN PO 03/27/17 14:00 04/26/17 13:59 03/27/17 20:55 25 MG Metoprolol Succinate (Toprol Xl Tab) 12.5 mg QAM PO 03/28/17 09:00 04/26/17 08:59 03/28/17 13:57 12.5 MG Benzonatate (Tessalon Perles Cap) 100 mg Q8H PRN PO 03/28/17 02:00 04/27/17 01:59 03/28/17 02:09 100 MG Vancomycin HCl 1500 mg/Sodium Chloride 530 ml @ 200 mls/hr Q12H IV 03/28/17 14:00 04/02/17 13:59 03/28/17 14:40 200 MLS/HR Objective Vital Signs Date Time Temp Pulse Resp B/P (MAP) Pulse Ox O2 Delivery O2 Flow Rate FiO2 03/28/17 16:33 Oxymask 03/28/17 15:43 37.1 92 18 109/68 (82) 98 03/28/17 14:17 93 20 96 Nasal Cannula 4.0 03/28/17 13:00 36.8 80 18 126/73 (90) 98 03/28/17 12:00 Nasal Cannula 5.0 03/28/17 12:00 84 20 127/76 (93) 96 Nasal Cannula 5.0 03/28/17 11:30 37.1 103 20 115/76 (89) 94 Nasal Cannula 5.0 03/28/17 11:15 106 22 115/82 94 Nasal Cannula 4 Mask 03/28/17 11:10 106 24 121/89 93 Nasal Cannula 4 Mask 03/28/17 11:05 115 24 125/91 95 Mask 15 03/28/17 11:00 103 22 150/96 95 Mask 15 03/28/17 10:55 115 24 140/82 95 Mask 15 03/28/17 10:50 105 26 128/79 93 Mask 15 03/28/17 10:45 87 20 131/86 95 Mask 03/28/17 10:40 83 18 154/90 98 Mask 03/28/17 10:35 83 18 123/100 98 Mask 03/28/17 10:30 83 18 157/93 98 Mask 03/28/17 08:00 Nasal Cannula 2.0 03/28/17 07:58 85 20 96 Nasal Cannula 2.0 03/28/17 07:58 36.8 84 18 120/74 (89) 96 03/28/17 04:00 Nasal Cannula 2.0 03/28/17 03:20 36.5 80 16 121/67 (85) 95 2.0 03/28/17 01:55 67 20 98 Nasal Cannula 2.0 03/28/17 00:00 Room Air 2.0 Nasal Cannula 03/27/17 23:30 36.8 87 18 149/79 (102) 94 2.0 03/27/17 20:00 Nasal Cannula 2.0 03/27/17 19:28 92 18 96 Nasal Cannula 2.0 03/27/17 19:04 36.7 83 22 139/81 (100) 93 Nasal Cannula 2.0 Physical Exam General Appearance: WD/WN, no apparent distress Eyes: normal inspection, sclerae normal ENT: normal ENT inspection, pharynx normal Neck: supple, no adenopathy, trachea midline Respiratory/Chest: chest non-tender, no respiratory distress, + rales Cardiovascular: regular rate, rhythm, no gallop, no murmur Abdomen: normal bowel sounds, non tender, soft, no organomegaly Extremities: non-tender, no calf tenderness Neurologic/Psychiatric: alert, oriented x 3 Skin: normal color, no rash Lymphatic: no adenopathy Laboratory Results Last 24 Hours Test 03/28/17 00:00 03/28/17 06:23 03/28/17 09:56 White Blood Count 11.79 K/uL Red Blood Count 4.85 M/uL Hemoglobin 15.8 g/dL Hematocrit 47.9 % Mean Corpuscular Volume 98.8 fL Mean Corpuscular Hemoglobin 32.6 pg Mean Corpuscular Hemoglobin Concent 33.0 g/dl Platelet Count 192 K/uL Mean Platelet Volume 10.8 fL Neutrophils (%) (Auto) 81.8 % Lymphocytes (%) (Auto) 8.4 % Monocytes (%) (Auto) 9.2 % Eosinophils (%) (Auto) 0.1 % Basophils (%) (Auto) 0.2 % Neutrophils # (Auto) 9.64 K/uL Lymphocytes # (Auto) 0.99 K/uL Monocytes # (Auto) 1.09 K/uL Eosinophils # (Auto) 0.01 K/uL Basophils # (Auto) 0.02 K/uL RDW Standard Deviation 60.8 fL RDW Coefficient of Variation 16.9 % Immature Granulocyte % (Auto) 0.3 % Immature Granulocyte # (Auto) 0.04 K/uL Sodium Level 144 mmol/L Potassium Level 3.6 mmol/L Chloride Level 109 mmol/L Carbon Dioxide Level 30 mmol/L Anion Gap 5.0 mmol/L Blood Urea Nitrogen 15 mg/dl Creatinine 0.88 mg/dl Est Creatinine Clear Calc Drug Dose 65.2 ml/min Estimated GFR () 83.4 Estimated GFR (Non- 71.9 BUN/Creatinine Ratio 16.6 Random Glucose 98 mg/dl Calcium Level 8.9 mg/dl Magnesium Level 2.2 mg/dl Vancomycin Level Trough 10.4 mcg/ml Assessment and Plan The 57-year-old female with longstanding rheumatoid arthritis on significant immunosuppressive therapy now with extensive infiltration involving all lobes of the lung with appearance worrisome for possible fungal infection. Certainly she is at high risk given her immunosuppressive therapy. Patient now status post bronchoscopy, cultures are pending. Patient to continue on present antibiotics pending results from bronchoscopy. Will follow.
[2017-03-28] MEDS: RANITIDINE HCL 150 MG TAB PO SCH (21:44)
[2017-03-29] VITALS (12 sets, daily range): BP systolic 118–171; BP diastolic 71–81; PULSE 75–87; TEMP 36.5–36.8; O2SAT 90–99
[2017-03-29] MEDS: ALBUTEROL 0.083% NEBU SOLN 3 ML VIAL INH SCH ×4 (01:58→19:09)
[2017-03-29] MEDS: VANCOMYCIN INJ 1,500 MG in SODIUM CHLORIDE 0.9% 500ML 500 ML IV SCH ×2 (02:22→14:26)
[2017-03-29] MEDS: PIPERACILL/TAZOBAC IV 3.375 GM in DEXTROSE 5% 100ML IV SCH ×3 (03:00→18:29)
[2017-03-29] MEDS: HEPARIN SOD 5000 UNIT/0.5 ML CARP SQ SCH ×3 (06:31→22:17)
[2017-03-29 07:13] LABS: BASO % 0.4 %; BASO ABS # 0.03 K/uL (0-0.2); EOS % 1.1 %; EOS ABS # 0.09 K/uL (0-0.5); HEMATOCRIT 43.1 % (37-47); HEMOGLOBIN 13.9 g/dL (12.0-16.0); IG# 0.04 K/uL (0.00-0.02); LYMPH % 13.4 %; LYMPH ABS # 1.09 K/uL (1.2-3.4); MEAN CORPUSCULAR HEMOGLOBIN 32.3 pg (25-34); MEAN CORPUSCULAR HGB CONC 32.3 g/dl (32-36); MEAN PLATELET VOLUME 10.5 fL (7.4-10.4); MONO % 10.8 %; MONO ABS # 0.88 K/uL (0.11-0.59); NEUT % 73.8 %; NEUT ABS # 5.99 K/uL (1.4-6.5); PLATELET COUNT 160 K/uL (130-400); RED CELL DISTRIBUTION WIDTH CV 17.1 % (11.5-14.5); RED CELL DISTRIBUTION WIDTH SD 62.5 fL (36.4-46.3); WHITE BLOOD COUNT 8.12 K/uL (4.8-10.8)
[2017-03-29 07:45] LABS: CALCIUM 8.3 mg/dl (8.5-10.1); CREATININE 0.74 mg/dl (0.60-1.20); POTASSIUM 3.6 mmol/L (3.5-5.1)
[2017-03-29] MEDS: BENZONATATE 100MG CAP PO PRN ×2 (09:14→22:18)
[2017-03-29] MEDS: FLUTICASONE PROPIONATE NA SPR 16 GM BTL SCH (09:14)
[2017-03-29] MEDS: TIOTROPIUM BROMIDE 5 PUFF/90 MCG INH INH SCH (09:14)
[2017-03-29] MEDS: BUDESONIDE/FORMOTEROL FUMARATE 160/4.5 60 PUFFS/INHALER INH SCH ×2 (09:14→20:49)
[2017-03-29] MEDS: PANTOprazole SOD 40 MG TAB PO SCH (09:15)
[2017-03-29] MEDS: CHOLESTYRAMINE LIGHT 4 GM PKT PO SCH ×2 (09:15→20:49)
[2017-03-29] MEDS: METOPROLOL SUCC 25MG EXT REL TAB PO SCH (09:15)
--- NOTE | 2017-03-29 09:33 | Progress Note ---
Internal Med Progress Note Date of Service: Mar 29, 2017. Provider Documentation: SUBJECTIVE: Seen and examined at bedside Less SOB on exertion Minimal cough Had bronchoscopy yesterday Denies chest pain, dizziness, abdominal pain No other complaints Requiring minimal Oxygen support (1L) to maintain Sats OBJECTIVE: Vital Signs-as noted below Physical Exam: Vitals signs as noted above General Appearance:Moderately built and nourished, no apparent distress Head: normocephalic, Atraumatic Eyes: normal inspection, EOMI, PERRL Neck: supple, Trachea midline Respiratory/Chest: Decreased breath sounds, crackles/expiratory wheezes at bases Cardiovascular: S1, S2, No murmur Abdomen/GI:Soft, Non tender, Bowel sounds present Extremities/Musculoskelatal:normal inspection, no edema Neurologic/Psych:AAOX3, grossly no focal neurological deficits Skin: normal color, warm Lab data as noted below. ASSESSMENT & PLAN: Acute on Chronic Respiratory Failure: DD: angioinvasive aspergillosis, septic emboli H/O COPD S/P Bronchoscopy on 03/28/17 CTA: No PE, Multifocal nodular opacities involving all 5 lobes with a basilar predominance. Reactive mediastinal and bilateral hilar lymph nodes Oxygen support, Duonebs, prednisone Continue IV Antibiotics (Vanco and Zosyn) and Voriconazole for now Blood cultures: No growth to date Sputum culture: pending Bronchial cultures obtained Cryptococcal antigen negative Appreciate Pulmonary and ID Input Influenza PCR: negative ECHO: As below Fungal Serology pending May need 2 step prior to discharge Elevated D-dimer: CTA: No PE Venous Doppler LE: No DVT Prolonged QTC: Avoid QTC prolonging meds repeat EKG: QTC normalized Rheumatoid Arthritis: Follows with Rheumatology as outpatient Hold Methotrexate and Actemra for now continue prednisone GERD: Continue PPI H/O Prediabetes A1C: 6.0 DVT Px: Heparin SQ Code Status: Full Code Disposition: Expect to discharge home when stable PROCEDURES ECHO: * The left ventricle is hyperdynamic. * Ejection Fraction = >70 %. * The left ventricular wall motion is normal. * There is trace tricuspid regurgitation. * Pulse wave TDI of the anterior and posterior mitral annulas demonstrates normal LV relaxation * Poorly visualized valvular structures. CTA: 1. No evidence of pulmonary emboli. 2. Multifocal nodular opacities involving all 5 lobes with a basilar predominance. These are most concerning for an infectious etiology especially given the presence of bronchial wall thickening, atypical and fungal infections such as angioinvasive aspergillosis not excluded. Differential considerations include septic emboli or hemorrhagic metastases among other etiologies. 3. Reactive mediastinal and bilateral hilar lymph nodes. Vital Signs: Date Time Temp Pulse Resp B/P (MAP) Pulse Ox O2 Delivery O2 Flow Rate FiO2 03/29/17 09:13 97 Nasal Cannula 1.0 Humidified Oxygen 03/29/17 07:54 36.8 80 18 130/74 (92) 96 03/29/17 06:51 75 18 98 Nasal Cannula 3.0 03/29/17 04:00 Nasal Cannula 3.0 03/29/17 03:00 36.5 79 18 142/79 (100) 95 Nasal Cannula 2.0 03/29/17 02:01 78 18 98 Nasal Cannula 4.0 03/29/17 00:04 36.8 78 18 118/71 (87) 95 Nasal Cannula 2.0 03/29/17 00:00 Nasal Cannula 3.0 03/28/17 20:41 36.7 82 19 133/68 (89) 96 Nasal Cannula 2.0 03/28/17 20:00 Nasal Cannula 3.0 03/28/17 19:41 83 18 96 Nasal Cannula 4.0 03/28/17 16:33 Oxymask 03/28/17 16:00 Nasal Cannula 3.0 03/28/17 15:43 37.1 92 18 109/68 (82) 98 03/28/17 14:17 93 20 96 Nasal Cannula 4.0 03/28/17 13:00 36.8 80 18 126/73 (90) 98 03/28/17 12:00 Nasal Cannula 5.0 03/28/17 12:00 84 20 127/76 (93) 96 Nasal Cannula 5.0 03/28/17 11:30 37.1 103 20 115/76 (89) 94 Nasal Cannula 5.0 03/28/17 11:15 106 22 115/82 94 Nasal Cannula 4 Mask 03/28/17 11:10 106 24 121/89 93 Nasal Cannula 4 Mask 03/28/17 11:05 115 24 125/91 95 Mask 15 03/28/17 11:00 103 22 150/96 95 Mask 15 03/28/17 10:55 115 24 140/82 95 Mask 15 03/28/17 10:50 105 26 128/79 93 Mask 15 03/28/17 10:45 87 20 131/86 95 Mask 03/28/17 10:40 83 18 154/90 98 Mask 03/28/17 10:35 83 18 123/100 98 Mask 03/28/17 10:30 83 18 157/93 98 Mask Lab Results: Results Past 24 Hours Test 03/28/17 09:56 03/29/17 06:21 Range/Units Vancomycin Level Trough 10.4 SEE COMMENT mcg/ml White Blood Count 8.12 4.8-10.8 K/uL Red Blood Count 4.31 4.2-5.4 M/uL Hemoglobin 13.9 12.0-16.0 g/dL Hematocrit 43.1 37-47 % Mean Corpuscular Volume 100.0 80-100 fL Mean Corpuscular Hemoglobin 32.3 25-34 pg Mean Corpuscular Hemoglobin Concent 32.3 32-36 g/dl Platelet Count 160 130-400 K/uL Mean Platelet Volume 10.5 7.4-10.4 fL Neutrophils (%) (Auto) 73.8 % Lymphocytes (%) (Auto) 13.4 % Monocytes (%) (Auto) 10.8 % Eosinophils (%) (Auto) 1.1 % Basophils (%) (Auto) 0.4 % Neutrophils # (Auto) 5.99 1.4-6.5 K/uL Lymphocytes # (Auto) 1.09 1.2-3.4 K/uL Monocytes # (Auto) 0.88 0.11-0.59 K/uL Eosinophils # (Auto) 0.09 0-0.5 K/uL Basophils # (Auto) 0.03 0-0.2 K/uL RDW Standard Deviation 62.5 36.4-46.3 fL RDW Coefficient of Variation 17.1 11.5-14.5 % Immature Granulocyte % (Auto) 0.5 % Immature Granulocyte # (Auto) 0.04 0.00-0.02 K/uL Sodium Level 143 136-145 mmol/L Potassium Level 3.6 3.5-5.1 mmol/L Chloride Level 107 98-107 mmol/L Carbon Dioxide Level 30 21-32 mmol/L Anion Gap 6.0 3-11 mmol/L Blood Urea Nitrogen 14 7-18 mg/dl Creatinine 0.74 0.60-1.20 mg/dl Est Creatinine Clear Calc Drug Dose 78.2 ml/min Estimated GFR () 102.8 Estimated GFR (Non- 88.7 BUN/Creatinine Ratio 18.6 10-20 Random Glucose 109 70-99 mg/dl Calcium Level 8.3 8.5-10.1 mg/dl Magnesium Level 2.0 1.8-2.4 mg/dl
[2017-03-29] MEDS: SODIUM CHLORIDE 0.9% IV SCH ×2 (10:14→22:15)
[2017-03-29] MEDS: VORICONAZOLE IV SCH ×2 (10:14→22:15)
--- NOTE | 2017-03-29 10:30 | Pulmonology Progress Note ---
Pulmonary Progress Note Date of Service Mar 29, 2017. Attending Dr. Ng Subjective Patient seen and examined at bedside. She states she's feeling much better since having bronchoscopy. Still having cough. She denies any chest pain. Shortness of breath is improving. Oxygen tapered down to 1 L nasal cannula saturating 97%. Objective VS reviewed. Currently on 2L NC. Cumulative balance 1.6 L positive. Gen: AAOx3, no acute respiratory distress, speaking in full sentences without dyspnea CVS: S1, S2, RRR Lungs: crackles at bases, no wheezes, good air entry otherwise Abd: soft/NT/ND/BS+ Ext: no edema bilaterally, no clubbing, no cyanosis Labs reviewed. Imaging reviewed. Medications reviewed. White blood cell count 8 down from 11.7, hemoglobin 13 and platelet 160. Bronchial washings from the left lower lobe--pending Coags--within normal limits. Sputum culture--moderate normal marsha Blood culture--no growth to date cryptococcus antibody--negative Currently on voriconazole, IV q12h, Zosyn 3.375 q8h, Vancomycin 1 g q12h, Tessalon perles, Spiriva 1 puff daily, Prednisone 15 mg PO daily, Symbicort 160 /4.5 2 puffs BID, Ranitidine 300mg qHS and Protonix 40 mg daily, Heparin 5000 U q8H Chest x-ray 03/28/2017 FINDINGS: Cardiomediastinal silhouette normal. Mildly prominent lung markings at the lung bases with nodular opacities. No pleural effusion or pneumothorax.. Possible old right rib fracture. Upper abdomen normal. IMPRESSION: 1. Basilar predominant nodular opacities. 2. No pneumothorax. Assessment & Plan Acute hypoxic respiratory failure-improving COPD Abnormal CT is a 57-year-old female with past medical history of COPD with FEV1 of about 40%. She follows up with Dr. Wilder for chronic cough and reactive airway disease. She is on chronic prednisone for rheumatoid arthritis. She was recently discontinued on Humira as well as methotrexate due to recent upper respiratory infection. She recently resumed methotrexate. Now presents with increasing cough, dyspnea on exertion and wheezing. Patient now with hypoxemic respiratory failure. CT of the chest show multifocal patchy airspace opacities. This could represent a community-acquired bacterial infection. However patient is on chronic steroid use as well as biologic medications. I would consider her to be an immunocompromised state due to this. Therefore these opacities could also represent mycobacteria/fungal infections. Patient status post bronchoscopy on 03/28/2017. Currently doing well. FiO2 taper down to 1 L/m she is saturating well. Sputum cultures are negative to date. However we await bronchial washing cultures. Continue his supplemental oxygen to maintain an SaO2 above 90%. Continue to taper as tolerated ID is on board and following closely. Serology has been sent for 1, 3 beta D glucan, galactomannan, Aspergillus antibody still pending. Continue with broad-spectrum antibiotics. Continue with empiric voriconazole, per ID Continue with corticosteroids as well as nebulizers every 6 hours standing dose and when necessary. Continue with PPI, H2 rosmery Continue with inhaled nasal corticosteroid as well Overall she is improving. Will continue to follow. Data Medications: Current Inpatient Medications Medications (Trade) Dose Ordered Sig/Bryan Route Start Time Stop Time Status Last Admin Dose Admin Ioversol (Optiray 320) 100 ml UD PRN IV 03/26/17 16:30 03/30/17 16:29 Heparin Sodium (Porcine) (Heparin Sq 5000 Unit/0.5ml) 5,000 unit Q8 SQ 03/26/17 22:00 04/25/17 21:59 03/29/17 06:31 5,000 UNIT Acetaminophen (Tylenol Tab) 650 mg Q4H PRN PO 03/26/17 18:45 04/25/17 18:44 03/26/17 19:49 650 MG Albuterol Sulfate (Ventolin 0.083% 2.5MG/3ML Neb) 2.5 mg Q6R INH 03/26/17 21:00 04/25/17 20:59 03/29/17 06:51 2.5 MG Budesonide/ Formoterol Fumarate (Symbicort 160/ 4.5 Inh) 2 puffs BID INH 03/26/17 21:00 04/25/17 20:59 03/29/17 09:14 2 PUFFS Fluticasone Propionate (Flonase Nasal [place]) 2 sprays QAM NA 03/27/17 09:00 04/26/17 08:59 03/29/17 09:14 2 SPRAYS Prednisone (PredniSONE TAB) 15 mg DAILY PO 03/27/17 09:00 04/26/17 08:59 03/29/17 09:15 15 MG Ranitidine HCl (zANTac TAB) 300 mg HS PO 03/26/17 21:00 04/25/17 20:59 03/28/17 21:44 300 MG Tiotropium [place] (Spiriva Handihaler Inhaler) 1 puff DAILY INH 03/27/17 09:00 04/26/17 08:59 03/29/17 09:14 1 PUFF Cholestyramine Resin (Questran Powder Light) 4 gm BID PO 03/26/17 21:00 04/25/17 20:59 03/29/17 09:15 4 GM Pantoprazole Sodium (Protonix Tab) 40 mg QAM PO 03/27/17 09:00 04/26/17 08:59 03/29/17 09:15 40 MG Albuterol/ Ipratropium (Duoneb) 3 ml Q4R PRN INH 03/26/17 19:00 04/25/17 18:59 03/26/17 23:35 3 ML Promethazine HCl 12.5 mg/Sodium Chloride 50.5 ml @ 204 mls/hr Q6H PRN IV 03/26/17 19:15 04/25/17 19:14 Vancomycin HCl (Consult) 1 ea UD PRN N/A 03/26/17 20:00 04/25/17 19:59 Piperacillin Sod/ Tazobactam Sod (Consult) 1 ea UD PRN N/A 03/26/17 20:00 04/25/17 19:59 Miscellaneous Information 1 ea UD PRN N/A 03/26/17 20:00 04/25/17 19:59 Piperacillin Sod/ Tazobactam Sod 3.375 gm/Dextrose 115 ml @ 28.75 mls/ hr Q8H IV 03/27/17 02:00 04/02/17 17:59 03/29/17 10:14 28.75 MLS/HR Voriconazole 280 mg/Sodium Chloride 100 ml @ 50 mls/hr Q12H IV 03/27/17 22:00 04/02/17 21:59 03/29/17 10:14 50 MLS/HR Diphenhydramine HCl (Benadryl Cap) 25 mg Q6H PRN PO 03/27/17 14:00 04/26/17 13:59 03/27/17 20:55 25 MG Metoprolol Succinate (Toprol Xl Tab) 12.5 mg QAM PO 03/28/17 09:00 04/26/17 08:59 03/29/17 09:15 12.5 MG Benzonatate (Tessalon Perles Cap) 100 mg Q8H PRN PO 03/28/17 02:00 04/27/17 01:59 03/29/17 09:14 100 MG Vancomycin HCl 1500 mg/Sodium Chloride 530 ml @ 200 mls/hr Q12H IV 03/28/17 14:00 04/02/17 13:59 03/29/17 02:22 200 MLS/HR Vital Signs: Date Time Temp Pulse Resp B/P (MAP) Pulse Ox O2 Delivery O2 Flow Rate FiO2 03/29/17 09:13 97 Nasal Cannula 1.0 Humidified Oxygen 03/29/17 07:54 36.8 80 18 130/74 (92) 96 03/29/17 06:51 75 18 98 Nasal Cannula 3.0 03/29/17 04:00 Nasal Cannula 3.0 03/29/17 03:00 36.5 79 18 142/79 (100) 95 Nasal Cannula 2.0 03/29/17 02:01 78 18 98 Nasal Cannula 4.0 03/29/17 00:04 36.8 78 18 118/71 (87) 95 Nasal Cannula 2.0 03/29/17 00:00 Nasal Cannula 3.0 03/28/17 20:41 36.7 82 19 133/68 (89) 96 Nasal Cannula 2.0 03/28/17 20:00 Nasal Cannula 3.0 03/28/17 19:41 83 18 96 Nasal Cannula 4.0 03/28/17 16:33 Oxymask 03/28/17 16:00 Nasal Cannula 3.0 03/28/17 15:43 37.1 92 18 109/68 (82) 98 03/28/17 14:17 93 20 96 Nasal Cannula 4.0 03/28/17 13:00 36.8 80 18 126/73 (90) 98 03/28/17 12:00 Nasal Cannula 5.0 03/28/17 12:00 84 20 127/76 (93) 96 Nasal Cannula 5.0 03/28/17 11:30 37.1 103 20 115/76 (89) 94 Nasal Cannula 5.0 03/28/17 11:15 106 22 115/82 94 Nasal Cannula 4 Mask 03/28/17 11:10 106 24 121/89 93 Nasal Cannula 4 Mask 03/28/17 11:05 115 24 125/91 95 Mask 15 03/28/17 11:00 103 22 150/96 95 Mask 15 03/28/17 10:55 115 24 140/82 95 Mask 15 03/28/17 10:50 105 26 128/79 93 Mask 15 03/28/17 10:45 87 20 131/86 95 Mask 03/28/17 10:40 83 18 154/90 98 Mask 03/28/17 10:35 83 18 123/100 98 Mask 03/28/17 10:30 83 18 157/93 98 Mask Laboratory Results: Last 24 Hours Test 03/29/17 06:21 White Blood Count 8.12 K/uL Red Blood Count 4.31 M/uL Hemoglobin 13.9 g/dL Hematocrit 43.1 % Mean Corpuscular Volume 100.0 fL Mean Corpuscular Hemoglobin 32.3 pg Mean Corpuscular Hemoglobin Concent 32.3 g/dl Platelet Count 160 K/uL Mean Platelet Volume 10.5 fL Neutrophils (%) (Auto) 73.8 % Lymphocytes (%) (Auto) 13.4 % Monocytes (%) (Auto) 10.8 % Eosinophils (%) (Auto) 1.1 % Basophils (%) (Auto) 0.4 % Neutrophils # (Auto) 5.99 K/uL Lymphocytes # (Auto) 1.09 K/uL Monocytes # (Auto) 0.88 K/uL Eosinophils # (Auto) 0.09 K/uL Basophils # (Auto) 0.03 K/uL RDW Standard Deviation 62.5 fL RDW Coefficient of Variation 17.1 % Immature Granulocyte % (Auto) 0.5 % Immature Granulocyte # (Auto) 0.04 K/uL Sodium Level 143 mmol/L Potassium Level 3.6 mmol/L Chloride Level 107 mmol/L Carbon Dioxide Level 30 mmol/L Anion Gap 6.0 mmol/L Blood Urea Nitrogen 14 mg/dl Creatinine 0.74 mg/dl Est Creatinine Clear Calc Drug Dose 78.2 ml/min Estimated GFR () 102.8 Estimated GFR (Non- 88.7 BUN/Creatinine Ratio 18.6 Random Glucose 109 mg/dl Calcium Level 8.3 mg/dl Magnesium Level 2.0 mg/dl
[2017-03-29] MEDS ORDERED: VANCOMYCIN TROUGH ONE (13:30)
--- NOTE | 2017-03-29 15:51 | Pharmacy Progress Note ---
Pharmacy Abx Dose Short Note Date of Service Mar 29, 2017. Assessment & Plan Assessment 57 year old female receiving vancomycin, Zosyn, and vorconizole for treatment of pneumonia, aspergillosis. Day # 4 of antimicrobial therapy. Plan Vancomycin * Trough level of 14. mcg/mL is therapeutic. * Continue dose of 1500 mg IV every 12 hours. * Goal trough level for good lung penetration : 15 to 20 mcg/mL; pt not quite at SS after dose increased from 1000mg q 12h. Expect to see an increase in trough--will order another level in a few days. Pharmacy will continue to follow and will adjust dose/frequency as necessary. Thank you.
[2017-03-29] MEDS: RANITIDINE HCL 150 MG TAB PO SCH (20:51)
[2017-03-30] VITALS (11 sets, daily range): BP systolic 122–153; BP diastolic 63–91; PULSE 68–86; TEMP 36.6–36.9; O2SAT 92–96
[2017-03-30] MEDS: ALBUTEROL 0.083% NEBU SOLN 3 ML VIAL INH SCH ×4 (01:58→20:01)
[2017-03-30] MEDS: PIPERACILL/TAZOBAC IV 3.375 GM in DEXTROSE 5% 100ML IV SCH ×3 (02:00→18:11)
[2017-03-30] MEDS: VANCOMYCIN INJ 1,500 MG in SODIUM CHLORIDE 0.9% 500ML 500 ML IV SCH ×2 (02:13→14:29)
[2017-03-30 06:17] LABS: BASO % 0.3 %; BASO ABS # 0.02 K/uL (0-0.2); EOS % 2.2 %; EOS ABS # 0.14 K/uL (0-0.5); HEMATOCRIT 40.6 % (37-47); HEMOGLOBIN 13.5 g/dL (12.0-16.0); IG# 0.05 K/uL (0.00-0.02); LYMPH % 19.7 %; LYMPH ABS # 1.28 K/uL (1.2-3.4); MEAN CELL VOLUME 97.4 fL (80-100); MEAN CORPUSCULAR HEMOGLOBIN 32.4 pg (25-34); MEAN CORPUSCULAR HGB CONC 33.3 g/dl (32-36); MEAN PLATELET VOLUME 10.1 fL (7.4-10.4); MONO % 15.1 %; MONO ABS # 0.98 K/uL (0.11-0.59); NEUT % 61.9 %; NEUT ABS # 4.04 K/uL (1.4-6.5); PLATELET COUNT 148 K/uL (130-400); RED CELL DISTRIBUTION WIDTH CV 16.6 % (11.5-14.5); RED CELL DISTRIBUTION WIDTH SD 59.7 fL (36.4-46.3); WHITE BLOOD COUNT 6.51 K/uL (4.8-10.8)
[2017-03-30] MEDS: HEPARIN SOD 5000 UNIT/0.5 ML CARP SQ SCH ×3 (06:27→20:40)
[2017-03-30 06:54] LABS: CALCIUM 8.2 mg/dl (8.5-10.1); CREATININE 0.66 mg/dl (0.60-1.20); POTASSIUM 3.1 mmol/L (3.5-5.1)
[2017-03-30] MEDS: BUDESONIDE/FORMOTEROL FUMARATE 160/4.5 60 PUFFS/INHALER INH SCH ×2 (08:36→20:31)
[2017-03-30] MEDS: TIOTROPIUM BROMIDE 5 PUFF/90 MCG INH INH SCH (08:36)
[2017-03-30] MEDS: FLUTICASONE PROPIONATE NA SPR 16 GM BTL SCH (08:37)
[2017-03-30] MEDS: METOPROLOL SUCC 25MG EXT REL TAB PO SCH (08:38)
[2017-03-30] MEDS: PANTOprazole SOD 40 MG TAB PO SCH (08:39)
[2017-03-30] MEDS: CHOLESTYRAMINE LIGHT 4 GM PKT PO SCH ×2 (08:39→20:31)
[2017-03-30] MEDS: MAGNESIUM CHLORIDE 64MG DELAYED REL TAB PO SCH ×2 (08:43→20:30)
[2017-03-30] MEDS ORDERED: POTASSIUM CHLORIDE 10 MEQ TABCR PO ONE (08:45)
[2017-03-30] MEDS: BENZONATATE 100MG CAP PO PRN ×2 (09:51→22:53)
[2017-03-30] MEDS: VORICONAZOLE IV SCH ×2 (09:51→22:52)
[2017-03-30] MEDS: SODIUM CHLORIDE 0.9% IV SCH ×2 (09:51→22:52)
--- NOTE | 2017-03-30 10:43 | Progress Note ---
Internal Med Progress Note Date of Service: Mar 30, 2017. Provider Documentation: SUBJECTIVE: Seen and examined at bedside Clinically improving Less SOB, cough Denies chest pain, dizziness, abdominal pain No other complaints Saturating 94% on RA OBJECTIVE: Vital Signs-as noted below Physical Exam: Vitals signs as noted above General Appearance:Moderately built and nourished, no apparent distress Head: normocephalic, Atraumatic Eyes: normal inspection, EOMI, PERRL Neck: supple, Trachea midline Respiratory/Chest: Decreased breath sounds, crackles/expiratory wheezes at bases Cardiovascular: S1, S2, No murmur Abdomen/GI:Soft, Non tender, Bowel sounds present Extremities/Musculoskelatal:normal inspection, no edema Neurologic/Psych:AAOX3, grossly no focal neurological deficits Skin: normal color, warm Lab data as noted below. ASSESSMENT & PLAN: Acute on Chronic Respiratory Failure: DD: angioinvasive aspergillosis, septic emboli H/O COPD S/P Bronchoscopy on 03/28/17 CTA: No PE, Multifocal nodular opacities involving all 5 lobes with a basilar predominance. Reactive mediastinal and bilateral hilar lymph nodes Oxygen support, Duonebs, prednisone Continue IV Antibiotics (Vanco and Zosyn) and Voriconazole Blood cultures: No growth to date Sputum culture: No AFB Bronchial cultures:Negative to date Cryptococcal antigen negative Appreciate Pulmonary and ID Input Influenza PCR: negative ECHO: As below Fungal Serology pending May need 2 step prior to discharge Elevated D-dimer: CTA: No PE Venous Doppler LE: No DVT Prolonged QTC: Avoid QTC prolonging meds repeat EKG: QTC normalized Rheumatoid Arthritis: Follows with Rheumatology as outpatient Hold Methotrexate and Actemra for now continue prednisone GERD: Continue PPI H/O Prediabetes A1C: 6.0 DVT Px: Heparin SQ Code Status: Full Code Disposition: Expect to discharge home when stable PROCEDURES ECHO: * The left ventricle is hyperdynamic. * Ejection Fraction = >70 %. * The left ventricular wall motion is normal. * There is trace tricuspid regurgitation. * Pulse wave TDI of the anterior and posterior mitral annulas demonstrates normal LV relaxation * Poorly visualized valvular structures. CTA: 1. No evidence of pulmonary emboli. 2. Multifocal nodular opacities involving all 5 lobes with a basilar predominance. These are most concerning for an infectious etiology especially given the presence of bronchial wall thickening, atypical and fungal infections such as angioinvasive aspergillosis not excluded. Differential considerations include septic emboli or hemorrhagic metastases among other etiologies. 3. Reactive mediastinal and bilateral hilar lymph nodes. Vital Signs: Date Time Temp Pulse Resp B/P (MAP) Pulse Ox O2 Delivery O2 Flow Rate FiO2 03/30/17 07:59 36.8 86 16 151/91 (111) 94 Room Air 03/30/17 06:59 81 16 95 Room Air 03/30/17 04:10 36.6 76 18 142/76 (98) 96 Nasal Cannula 2.0 03/30/17 04:00 Nasal Cannula 1.0 03/30/17 01:59 74 16 96 Nasal Cannula 1.0 03/30/17 00:00 36.9 72 18 122/63 (82) 94 Nasal Cannula 1.0 03/30/17 00:00 Room Air Nasal Cannula 03/29/17 20:00 Room Air Nasal Cannula 03/29/17 19:41 36.5 87 18 171/81 (111) 90 Room Air 03/29/17 19:11 82 16 93 Room Air 03/29/17 16:00 Nasal Cannula 1.0 03/29/17 15:56 36.8 83 18 153/72 (99) 99 Nasal Cannula 1.0 Humidified Oxygen 03/29/17 14:18 87 18 96 Nasal Cannula 1.0 03/29/17 12:00 Nasal Cannula 1.0 03/29/17 11:58 36.5 78 18 130/74 (92) 96 Humidified Oxygen 1.0 Lab Results: Results Past 24 Hours Test 03/29/17 11:24 03/29/17 13:15 03/30/17 05:52 Range/Units Procalcitonin < 0.05 0-0.5 ng/ml Vancomycin Level Trough 14.6 SEE COMMENT mcg/ml White Blood Count 6.51 4.8-10.8 K/uL Red Blood Count 4.17 4.2-5.4 M/uL Hemoglobin 13.5 12.0-16.0 g/dL Hematocrit 40.6 37-47 % Mean Corpuscular Volume 97.4 80-100 fL Mean Corpuscular Hemoglobin 32.4 25-34 pg Mean Corpuscular Hemoglobin Concent 33.3 32-36 g/dl Platelet Count 148 130-400 K/uL Mean Platelet Volume 10.1 7.4-10.4 fL Neutrophils (%) (Auto) 61.9 % Lymphocytes (%) (Auto) 19.7 % Monocytes (%) (Auto) 15.1 % Eosinophils (%) (Auto) 2.2 % Basophils (%) (Auto) 0.3 % Neutrophils # (Auto) 4.04 1.4-6.5 K/uL Lymphocytes # (Auto) 1.28 1.2-3.4 K/uL Monocytes # (Auto) 0.98 0.11-0.59 K/uL Eosinophils # (Auto) 0.14 0-0.5 K/uL Basophils # (Auto) 0.02 0-0.2 K/uL RDW Standard Deviation 59.7 36.4-46.3 fL RDW Coefficient of Variation 16.6 11.5-14.5 % Immature Granulocyte % (Auto) 0.8 % Immature Granulocyte # (Auto) 0.05 0.00-0.02 K/uL Sodium Level 146 136-145 mmol/L Potassium Level 3.1 3.5-5.1 mmol/L Chloride Level 110 98-107 mmol/L Carbon Dioxide Level 29 21-32 mmol/L Anion Gap 7.0 3-11 mmol/L Blood Urea Nitrogen 8 7-18 mg/dl Creatinine 0.66 0.60-1.20 mg/dl Est Creatinine Clear Calc Drug Dose 87.7 ml/min Estimated GFR () 112.1 Estimated GFR (Non- 96.7 BUN/Creatinine Ratio 11.8 10-20 Random Glucose 95 70-99 mg/dl Calcium Level 8.2 8.5-10.1 mg/dl Magnesium Level 1.8 1.8-2.4 mg/dl
--- NOTE | 2017-03-30 12:13 | Pulmonology Progress Note ---
Pulmonary Progress Note Date of Service Mar 30, 2017. Attending Dr. Ng Subjective Patient seen and examined at bedside. She is out of bed to chair. Patient ambulated well this morning without dyspnea. She still has intermittent cough but feels better for respiratory standpoint. She denies any chest pain. Objective VS reviewed. She is saturating on well room air Gen: AAOx3, no acute respiratory distress, speaking in full sentences without dyspnea CVS: S1, S2, RRR Lungs: crackles at bases, no wheezes, good air entry otherwise Abd: soft/NT/ND/BS+ Ext: no edema bilaterally, no clubbing, no cyanosis Labs reviewed. Imaging reviewed. Medications reviewed. White blood cell count 6, hemoglobin 13.5, platelet count 148 Bronchial washings fungal culture-no use of fungus isolated Bronchial washings AFB-no AFB seen Bronchial washings bacterial culture-like normal marsha Coags--within normal limits. Sputum culture--moderate normal marsha Blood culture--no growth to date cryptococcus antibody--negative Other serology still pending Currently on voriconazole, IV q12h, Zosyn 3.375 q8h, Vancomycin 1 g q12h, Tessalon perles, Spiriva 1 puff daily, Prednisone 15 mg PO daily, Symbicort 160 /4.5 2 puffs BID, Ranitidine 300mg qHS and Protonix 40 mg daily, Heparin 5000 U q8H Chest x-ray 03/28/2017 FINDINGS: Cardiomediastinal silhouette normal. Mildly prominent lung markings at the lung bases with nodular opacities. No pleural effusion or pneumothorax.. Possible old right rib fracture. Upper abdomen normal. IMPRESSION: 1. Basilar predominant nodular opacities. 2. No pneumothorax. Assessment & Plan Acute hypoxic respiratory failure-improving COPD Abnormal CT is a 57-year-old female with past medical history of COPD with FEV1 of about 40%. She follows up with Dr. Wilder for chronic cough and reactive airway disease. She is on chronic prednisone for rheumatoid arthritis. She was recently discontinued on Humira as well as methotrexate due to recent upper respiratory infection. She recently resumed methotrexate. Now presents with increasing cough, dyspnea on exertion and wheezing. Patient now with hypoxemic respiratory failure. CT of the chest show multifocal patchy airspace opacities. This could represent a community-acquired bacterial infection. However patient is on chronic steroid use as well as biologic medications. I would consider her to be an immunocompromised state due to this. Therefore these opacities could also represent mycobacteria/fungal infections. Patient status post bronchoscopy on 03/28/2017. Currently doing well. FiO2 taper down to 1 L/m she is saturating well. Sputum cultures are negative to date. Bronchial washing cultures for AFB, fungus and bacteria are negative. She is saturating well off of oxygen. Continue to taper as tolerated ID is on board and following closely. Serology has been sent for 1, 3 beta D glucan, galactomannan, Aspergillus antibody still pending. Continue with broad-spectrum antibiotics. Continue with empiric voriconazole, per ID. Continue with corticosteroids as well as nebulizers every 6 hours standing dose and when necessary. Continue with PPI, H2 rosmery Continue with inhaled nasal corticosteroid as well Overall she is improving. Will sign off case today. She can follow-up with pulmonary clinic in 1-2 weeks, with CHRISS Veliz. Data Medications: Current Inpatient Medications Medications (Trade) Dose Ordered Sig/Bryan Route Start Time Stop Time Status Last Admin Dose Admin Ioversol (Optiray 320) 100 ml UD PRN IV 03/26/17 16:30 03/30/17 16:29 Heparin Sodium (Porcine) (Heparin Sq 5000 Unit/0.5ml) 5,000 unit Q8 SQ 03/26/17 22:00 04/25/17 21:59 03/30/17 06:27 5,000 UNIT Acetaminophen (Tylenol Tab) 650 mg Q4H PRN PO 03/26/17 18:45 04/25/17 18:44 03/26/17 19:49 650 MG Albuterol Sulfate (Ventolin 0.083% 2.5MG/3ML Neb) 2.5 mg Q6R INH 03/26/17 21:00 04/25/17 20:59 03/30/17 06:59 2.5 MG Budesonide/ Formoterol Fumarate (Symbicort 160/ 4.5 Inh) 2 puffs BID INH 03/26/17 21:00 04/25/17 20:59 03/30/17 08:36 2 PUFFS Fluticasone Propionate (Flonase Nasal [place]) 2 sprays QAM NA 03/27/17 09:00 04/26/17 08:59 03/30/17 08:37 2 SPRAYS Prednisone (PredniSONE TAB) 15 mg DAILY PO 03/27/17 09:00 04/26/17 08:59 03/30/17 08:38 15 MG Ranitidine HCl (zANTac TAB) 300 mg HS PO 03/26/17 21:00 04/25/17 20:59 03/29/17 20:51 300 MG Tiotropium [place] (Spiriva Handihaler Inhaler) 1 puff DAILY INH 03/27/17 09:00 04/26/17 08:59 03/30/17 08:36 1 PUFF Cholestyramine Resin (Questran Powder Light) 4 gm BID PO 03/26/17 21:00 04/25/17 20:59 03/30/17 08:39 4 GM Pantoprazole Sodium (Protonix Tab) 40 mg QAM PO 03/27/17 09:00 04/26/17 08:59 03/30/17 08:39 40 MG Albuterol/ Ipratropium (Duoneb) 3 ml Q4R PRN INH 03/26/17 19:00 04/25/17 18:59 03/26/17 23:35 3 ML Promethazine HCl 12.5 mg/Sodium Chloride 50.5 ml @ 204 mls/hr Q6H PRN IV 03/26/17 19:15 04/25/17 19:14 Vancomycin HCl (Consult) 1 ea UD PRN N/A 03/26/17 20:00 04/25/17 19:59 Piperacillin Sod/ Tazobactam Sod (Consult) 1 ea UD PRN N/A 03/26/17 20:00 04/25/17 19:59 Miscellaneous Information 1 ea UD PRN N/A 03/26/17 20:00 04/25/17 19:59 Piperacillin Sod/ Tazobactam Sod 3.375 gm/Dextrose 115 ml @ 28.75 mls/ hr Q8H IV 03/27/17 02:00 04/02/17 17:59 03/30/17 09:51 28.75 MLS/HR Voriconazole 280 mg/Sodium Chloride 100 ml @ 50 mls/hr Q12H IV 03/27/17 22:00 04/02/17 21:59 03/30/17 09:51 50 MLS/HR Diphenhydramine HCl (Benadryl Cap) 25 mg Q6H PRN PO 03/27/17 14:00 04/26/17 13:59 03/27/17 20:55 25 MG Metoprolol Succinate (Toprol Xl Tab) 12.5 mg QAM PO 03/28/17 09:00 04/26/17 08:59 03/30/17 08:38 12.5 MG Benzonatate (Tessalon Perles Cap) 100 mg Q8H PRN PO 03/28/17 02:00 04/27/17 01:59 03/30/17 09:51 100 MG Vancomycin HCl 1500 mg/Sodium Chloride 530 ml @ 200 mls/hr Q12H IV 03/28/17 14:00 04/02/17 13:59 03/30/17 02:13 200 MLS/HR Magnesium Chloride (Slow-Mag Tab) 64 mg BID PO 03/30/17 09:00 04/01/17 08:59 03/30/17 08:43 64 MG Vital Signs: Date Time Temp Pulse Resp B/P (MAP) Pulse Ox O2 Delivery O2 Flow Rate FiO2 03/30/17 08:00 Room Air 03/30/17 07:59 36.8 86 16 151/91 (111) 94 Room Air 03/30/17 06:59 81 16 95 Room Air 03/30/17 04:10 36.6 76 18 142/76 (98) 96 Nasal Cannula 2.0 03/30/17 04:00 Nasal Cannula 1.0 03/30/17 01:59 74 16 96 Nasal Cannula 1.0 03/30/17 00:00 36.9 72 18 122/63 (82) 94 Nasal Cannula 1.0 03/30/17 00:00 Room Air Nasal Cannula 03/29/17 20:00 Room Air Nasal Cannula 03/29/17 19:41 36.5 87 18 171/81 (111) 90 Room Air 03/29/17 19:11 82 16 93 Room Air 03/29/17 16:00 Nasal Cannula 1.0 03/29/17 15:56 36.8 83 18 153/72 (99) 99 Nasal Cannula 1.0 Humidified Oxygen 03/29/17 14:18 87 18 96 Nasal Cannula 1.0 Laboratory Results: Last 24 Hours Test 03/29/17 13:15 03/30/17 05:52 Vancomycin Level Trough 14.6 mcg/ml White Blood Count 6.51 K/uL Red Blood Count 4.17 M/uL Hemoglobin 13.5 g/dL Hematocrit 40.6 % Mean Corpuscular Volume 97.4 fL Mean Corpuscular Hemoglobin 32.4 pg Mean Corpuscular Hemoglobin Concent 33.3 g/dl Platelet Count 148 K/uL Mean Platelet Volume 10.1 fL Neutrophils (%) (Auto) 61.9 % Lymphocytes (%) (Auto) 19.7 % Monocytes (%) (Auto) 15.1 % Eosinophils (%) (Auto) 2.2 % Basophils (%) (Auto) 0.3 % Neutrophils # (Auto) 4.04 K/uL Lymphocytes # (Auto) 1.28 K/uL Monocytes # (Auto) 0.98 K/uL Eosinophils # (Auto) 0.14 K/uL Basophils # (Auto) 0.02 K/uL RDW Standard Deviation 59.7 fL RDW Coefficient of Variation 16.6 % Immature Granulocyte % (Auto) 0.8 % Immature Granulocyte # (Auto) 0.05 K/uL Sodium Level 146 mmol/L Potassium Level 3.1 mmol/L Chloride Level 110 mmol/L Carbon Dioxide Level 29 mmol/L Anion Gap 7.0 mmol/L Blood Urea Nitrogen 8 mg/dl Creatinine 0.66 mg/dl Est Creatinine Clear Calc Drug Dose 87.7 ml/min Estimated GFR () 112.1 Estimated GFR (Non- 96.7 BUN/Creatinine Ratio 11.8 Random Glucose 95 mg/dl Calcium Level 8.2 mg/dl Magnesium Level 1.8 mg/dl
[2017-03-30] MEDS: RANITIDINE HCL 150 MG TAB PO SCH (20:40)
[2017-03-30] MEDS ORDERED: NURSING DECISION MEDICATION ORDER SCH (22:30)
[2017-03-30] MEDS ORDERED: CHLORASEPTIC 1.4% SOLN 180 ML BTL MT PRN (22:45)
[2017-03-31] VITALS (8 sets, daily range): BP systolic 149; BP diastolic 91; PULSE 80–98; TEMP 36.5; O2SAT 90–96
[2017-03-31] MEDS: ALBUTEROL 0.083% NEBU SOLN 3 ML VIAL INH SCH ×3 (01:53→14:35)
[2017-03-31] MEDS: VANCOMYCIN INJ 1,500 MG in SODIUM CHLORIDE 0.9% 500ML 500 ML IV SCH ×2 (02:24→14:00)
[2017-03-31] MEDS: PIPERACILL/TAZOBAC IV 3.375 GM in DEXTROSE 5% 100ML IV SCH ×2 (02:24→10:12)
[2017-03-31] MEDS ORDERED: ALBUT/IPRATROP 3MG/0.5MG NEB 3 ML VIAL INH PRN (05:30)
[2017-03-31] MEDS ORDERED: METHYLPREDNISOLONE IV 40 MG in SYRINGE 0 ML IV ONE (05:30)
[2017-03-31] MEDS ORDERED: ALBUT/IPRATROP 3MG/0.5MG NEB 3 ML VIAL INH STA (05:31)
[2017-03-31] MEDS: HEPARIN SOD 5000 UNIT/0.5 ML CARP SQ SCH ×2 (05:35→14:00)
--- NOTE | 2017-03-31 06:40 | DIAGNOSTIC IMAGING REPORT ---
CHEST ONE VIEW PORTABLE CLINICAL HISTORY: sob dyspnea COMPARISON STUDY: 03/28/2017 FINDINGS: Unchanging nodular density right pulmonary apex. Lungs otherwise are clear. Mild stable cardiomegaly. Diaphragms smooth. IMPRESSION: Chronic change. No acute process. The above report was generated using voice recognition software. It may contain grammatical, syntax or spelling errors. Electronically signed by: Carlos Maciel M.D. 03/31/2017 6:38 AM Dictated Date/Time: 03/31/2017 6:38 AM
[2017-03-31 07:42] LABS: CALCIUM 8.4 mg/dl (8.5-10.1); CREATININE 0.76 mg/dl (0.60-1.20); POTASSIUM 3.1 mmol/L (3.5-5.1)
[2017-03-31] MEDS: FLUTICASONE PROPIONATE NA SPR 16 GM BTL SCH (08:02)
[2017-03-31] MEDS: CHOLESTYRAMINE LIGHT 4 GM PKT PO SCH (08:03)
[2017-03-31] MEDS: BUDESONIDE/FORMOTEROL FUMARATE 160/4.5 60 PUFFS/INHALER INH SCH (08:04)
[2017-03-31] MEDS: PANTOprazole SOD 40 MG TAB PO SCH (08:04)
[2017-03-31] MEDS: MAGNESIUM CHLORIDE 64MG DELAYED REL TAB PO SCH (08:04)
[2017-03-31] MEDS: TIOTROPIUM BROMIDE 5 PUFF/90 MCG INH INH SCH (08:05)
[2017-03-31] MEDS: METOPROLOL SUCC 25MG EXT REL TAB PO SCH (08:05)
[2017-03-31] MEDS: VORICONAZOLE IV SCH (10:12)
[2017-03-31] MEDS: SODIUM CHLORIDE 0.9% IV SCH (10:12)
[2017-03-31] MEDS ORDERED: POTASSIUM CHLORIDE 10 MEQ TABCR PO ONE (10:45)
--- NOTE | 2017-03-31 14:21 | Progress Note ---
Internal Med Progress Note Date of Service: Mar 31, 2017. Provider Documentation: SUBJECTIVE: Seen and examined at bedside Doing well Less cough Denies chest pain, SOB, dizziness, abdominal pain No other complaints Saturating 96% on RA OBJECTIVE: Vital Signs-as noted below Physical Exam: Vitals signs as noted above General Appearance:Moderately built and nourished, no apparent distress Head: normocephalic, Atraumatic Eyes: normal inspection, EOMI, PERRL Neck: supple, Trachea midline Respiratory/Chest: Decreased breath sounds, CTA Cardiovascular: S1, S2, No murmur Abdomen/GI:Soft, Non tender, Bowel sounds present Extremities/Musculoskelatal:normal inspection, no edema Neurologic/Psych:AAOX3, grossly no focal neurological deficits Skin: normal color, warm Lab data as noted below. ASSESSMENT & PLAN: Acute on Chronic Respiratory Failure: DD: angioinvasive aspergillosis, septic emboli H/O COPD S/P Bronchoscopy on 03/28/17 CTA: No PE, Multifocal nodular opacities involving all 5 lobes with a basilar predominance. Reactive mediastinal and bilateral hilar lymph nodes Oxygen support, Duonebs, prednisone Continue IV Antibiotics (Vanco and Zosyn) and Voriconazole Blood cultures: No growth to date Sputum culture: No AFB Bronchial cultures:Negative to date Cryptococcal antigen negative Appreciate Pulmonary and ID Input Influenza PCR: negative ECHO: As below Fungal Serology pending Discussed with ID today: Plan to discharge on Levaquin 750mg daily for 5 more days Needs follow up with Pulmonology Elevated D-dimer: CTA: No PE Venous Doppler LE: No DVT Prolonged QTC: Avoid QTC prolonging meds repeat EKG: QTC normalized Rheumatoid Arthritis: Follows with Rheumatology as outpatient Hold Methotrexate and Actemra for now continue prednisone GERD: Continue PPI H/O Prediabetes A1C: 6.0 DVT Px: Heparin SQ Code Status: Full Code Disposition: Plan to discharge home today Follow up with your Primary Care Physician on 04/07/17 at 12:25pm Follow up with your Residential Recycle Driver on 04/14/17 at 3:00pm Follow up with your Security Systems Installer in 2 weeks as advised Complete the antibiotic course as prescribed. Seek immediate medical attention if your symptoms reoccur or worsen PROCEDURES ECHO: * The left ventricle is hyperdynamic. * Ejection Fraction = >70 %. * The left ventricular wall motion is normal. * There is trace tricuspid regurgitation. * Pulse wave TDI of the anterior and posterior mitral annulas demonstrates normal LV relaxation * Poorly visualized valvular structures. CTA: 1. No evidence of pulmonary emboli. 2. Multifocal nodular opacities involving all 5 lobes with a basilar predominance. These are most concerning for an infectious etiology especially given the presence of bronchial wall thickening, atypical and fungal infections such as angioinvasive aspergillosis not excluded. Differential considerations include septic emboli or hemorrhagic metastases among other etiologies. 3. Reactive mediastinal and bilateral hilar lymph nodes. Vital Signs: Date Time Temp Pulse Resp B/P (MAP) Pulse Ox O2 Delivery O2 Flow Rate FiO2 03/31/17 08:00 96 Room Air 03/31/17 07:24 98 16 96 Room Air 03/31/17 07:13 36.5 80 18 149/91 (110) 92 Room Air 03/31/17 05:38 87 16 92 Room Air 03/31/17 01:53 86 16 90 Room Air 03/31/17 00:20 92 Room Air 03/30/17 23:20 36.6 79 18 153/82 (105) 94 Room Air 03/30/17 20:02 81 16 92 Room Air 03/30/17 16:57 78 16 95 Room Air 03/30/17 16:00 Room Air 03/30/17 15:45 36.8 68 18 146/80 (102) 93 Room Air Lab Results: Results Past 24 Hours Test 03/31/17 06:28 Range/Units Sodium Level 144 136-145 mmol/L Potassium Level 3.1 3.5-5.1 mmol/L Chloride Level 109 98-107 mmol/L Carbon Dioxide Level 30 21-32 mmol/L Anion Gap 5.0 3-11 mmol/L Blood Urea Nitrogen 9 7-18 mg/dl Creatinine 0.76 0.60-1.20 mg/dl Est Creatinine Clear Calc Drug Dose 76.2 ml/min Estimated GFR () 99.5 Estimated GFR (Non- 85.9 BUN/Creatinine Ratio 11.3 10-20 Random Glucose 90 70-99 mg/dl Calcium Level 8.4 8.5-10.1 mg/dl Magnesium Level 1.9 1.8-2.4 mg/dl
[2017-03-31] MEDS ORDERED: LVQ750 PO (14:23)
--- NOTE | 2017-03-31 14:26 | Discharge Summary ---
Discharge Summary Date of Service Mar 31, 2017. Discharge Summary Admission Date: Mar 26, 2017 at 18:38 Discharge Date: Mar 31, 2017 Discharge Disposition: Home Principal Diagnosis: Acute on chronic Respiratory failure Procedures: CTA: 1. No evidence of pulmonary emboli. 2. Multifocal nodular opacities involving all 5 lobes with a basilar predominance. These are most concerning for an infectious etiology especially given the presence of bronchial wall thickening, atypical and fungal infections such as angioinvasive aspergillosis not excluded. Differential considerations include septic emboli or hemorrhagic metastases among other etiologies. 3. Reactive mediastinal and bilateral hilar lymph nodes. Venous Doppler: No sonographic evidence of deep venous thrombosis within the right or left lower extremity. CXR: 1. Mild bronchial wall thickening could suggest bronchitis or reactive airways. No focal infiltrate to suggest pneumonia S/P bronchoscopy ECHO: * The left ventricle is hyperdynamic. * Ejection Fraction = >70 %. * The left ventricular wall motion is normal. * There is trace tricuspid regurgitation. * Pulse wave TDI of the anterior and posterior mitral annulas demonstrates normal LV relaxation * Poorly visualized valvular structures. Consultations: Pulm, ID Pending Studies/Follow-Up: Follow up with your Primary Care Physician on 04/07/17 at 12:25pm Follow up with your [facility] Nurse on 04/14/17 at 3:00pm Follow up with your Construction Site Crossing Guard in 2 weeks as advised Complete the antibiotic course as prescribed. Seek immediate medical attention if your symptoms reoccur or worsen Medication Reconciliation New Medications: Levofloxacin (Levofloxacin) 750 Mg Tab 750 MG PO DAILY for 5 Days, #5 TABS Potassium Chloride (Klor-Con M20) 20 Meq Tabcr 20 MG PO DAILY for 3 Days, #3 TABS Continued Medications: Albuterol Hfa (Ventolin Hfa) 200 Puffs/33821 Mcg Aers 2 PUFFS INH Q4H PRN for SOB/Wheezing, #1 INHALER Albuterol Sulf (Albuterol Sulfate) 2.5 Mg/0.5 Ml Nebu 1 VIAL NEB Q4 PRN for SOB/Wheezing Budesonide/Formoterol Fumarate (Symbicort 160/4.5 Inhaler ) Aero 2 PUFFS INH BID, INHALER Cholestyramine (Cholestyramine) 4 Gm Pow 4 GM PO BID Fluticasone Propionate (Nasal) (Flonase Allergy Relief) 50 Mcg/Act Spr 2 SPRAY NA QAM Methotrexate (Methotrexate Sodium) Unknown Strength Inj 1 DOSE INJ WK SATURDAYS Metoprolol Succ (Toprol Xl) (Toprol-Xl) 25 Mg Tabcr 25 MG PO QAM, #30 TAB Omeprazole (Prilosec) 40 Mg Cap 40 MG PO QAM Prednisone Tab (Prednisone) 10 Mg Tab 15 MG PO DAILY, TAB Ranitidine Hcl (Zantac) 300 Mg Tab 300 MG PO HS, TAB Tiotropium [place] (Spiriva Handihaler) 30 Puff/540 Mcg Aerp 1 CAP INH DAILY, INHALER Admission Information HPI (per Admitting provider): Patient is a 57 yr female with PMH of RA, COPD, GERD, Hiatal hernia, DDD, arthritis, prediabetes and other problems presents with history of worsening cough, SOB and chest tightness. She was seen by her PCP today and was found to be Hypoxic with Oxygen Sats to be 84% and so was sent to ED for further evaluation. Patient states cough is productive with yellowish expectoration since last 3-4 days but denies any hemoptysis. Also developed chest tightness and SOB since this morning which has been progressively worsening. Reports associated nausea and chills but denies fever, vomiting, abdominal pain. She is saturating 87% on room air while in ED which improved to 95% on 2 liters of oxygen. She reports leg swelling which has been improved since decrease of prednisone which she takes for arthritis.Denies any history of dizziness, hemoptysis, fever, vomiting, abdominal pain, diarrhea, dysuria, sick contact, recent change in medications. Physical Exam (per Admitting): General Appearance: WD/WN, no apparent distress Head: normocephalic, atraumatic Eyes: normal inspection, PERRL, EOMI, sclerae normal ENT: normal ENT inspection, hearing grossly normal Neck: supple, trachea midline Respiratory/Chest: no respiratory distress, no accessory muscle use, + decreased breath sounds, + crackles (bases), + pertinent finding (mild chest tenderness to palpate) Cardiovascular: regular rate, rhythm, no edema, no murmur, + tachycardia Abdomen/GI: normal bowel sounds, non tender, soft Back: normal inspection Extremities/Musculoskelatal: normal inspection, no pedal edema Neurologic/Psych: delivery merchandiser II-XII nml as tested, no motor/sensory deficits, alert , normal mood/affect, oriented x 3 Skin: normal color, warm/dry Hospital Course Acute on Chronic Respiratory Failure: DD: angioinvasive aspergillosis, septic emboli H/O COPD S/P Bronchoscopy on 03/28/17 CTA: No PE, Multifocal nodular opacities involving all 5 lobes with a basilar predominance. Reactive mediastinal and bilateral hilar lymph nodes Oxygen support, Duonebs, prednisone Continue IV Antibiotics (Vanco and Zosyn) and Voriconazole Blood cultures: No growth to date Sputum culture: No AFB Bronchial cultures:Negative to date Cryptococcal antigen negative Appreciate Pulmonary and ID Input Influenza PCR: negative ECHO: As below Fungal Serology pending Discussed with ID today: Plan to discharge on Levaquin 750mg daily for 5 more days Needs follow up with Pulmonology Elevated D-dimer: CTA: No PE Venous Doppler LE: No DVT Prolonged QTC: Avoid QTC prolonging meds repeat EKG: QTC normalized Rheumatoid Arthritis: Follows with Rheumatology as outpatient Hold Methotrexate and Actemra for now continue prednisone GERD: Continue PPI H/O Prediabetes A1C: 6.0 DVT Px: Heparin SQ Code Status: Full Code Disposition: Plan to discharge home today Follow up with your Primary Care Physician on 04/07/17 at 12:25pm Follow up with your [facility] Nurse on 04/14/17 at 3:00pm Follow up with your Construction Site Crossing Guard in 2 weeks as advised Complete the antibiotic course as prescribed. Seek immediate medical attention if your symptoms reoccur or worsen PROCEDURES ECHO: * The left ventricle is hyperdynamic. * Ejection Fraction = >70 %. * The left ventricular wall motion is normal. * There is trace tricuspid regurgitation. * Pulse wave TDI of the anterior and posterior mitral annulas demonstrates normal LV relaxation * Poorly visualized valvular structures. CTA: 1. No evidence of pulmonary emboli. 2. Multifocal nodular opacities involving all 5 lobes with a basilar predominance. These are most concerning for an infectious etiology especially given the presence of bronchial wall thickening, atypical and fungal infections such as angioinvasive aspergillosis not excluded. Differential considerations include septic emboli or hemorrhagic metastases among other etiologies. 3. Reactive mediastinal and bilateral hilar lymph nodes. Total time spent on discharge = 35 minutes This includes examination of the patient, discharge planning, medication reconciliation, and communication with other providers. Discharge Instructions Discharge Instructions Date of Service Mar 31, 2017. Admission Reason for Admission: Acute Respiratory Failure Discharge Discharge Diagnosis / Problem: Acute on chronic Respiratory failure Discharge Goals Goal(s): Decrease discomfort, Improve function Activity Recommendations Activity Limitations: resume your previous activity Exercise/Sports Limitations: as tolerated . Instructions / Follow-Up Instructions / Follow-Up Follow up with your Primary Care Physician on 04/07/17 at 12:25pm Follow up with your [facility] Nurse on 04/14/17 at 3:00pm Follow up with your Construction Site Crossing Guard in 2 weeks as advised Complete the antibiotic course as prescribed. Seek immediate medical attention if your symptoms reoccur or worsen Current Hospital Diet Patient's current hospital diet: AHA Diet (Heart Healthy) Discharge Diet Recommended Diet: AHA Diet (Heart Healthy) Procedures Procedures Performed: BRONCHOSCOPY Pending Studies Studies pending at discharge: yes List of pending studies: Fungal Serology, Bronchial cultures Medical Emergencies . Who to Call and When: Medical Emergencies: If at any time you feel your situation is an emergency, please call 911 immediately. . Non-Emergent Contact Non-Emergency issues call your: Primary Care Provider, Construction Site Crossing Guard Call Non-Emergent contact if: you have a fever, your pain is not controlled, your pain is worsening, your pain is unusual for you, your pain is concerning you, you have any medication questions Seek immediate medical attention if your symptoms reoccur or worsen . . "Provider Documentation" section prepared by Remy Pérez. . VTE Core Measure Inpt VTE Proph given/why not?: Unfractionated heparin SQ <Electronically signed by Remy Pérez MD> Signed: 03/31/17 1425 Signed: The status of this report is Signed * If report status is Draft, the document has not been finalized by the responsible provider.
[2017-03-31] MEDS ORDERED: MCRK20 PO (14:31)
--- NOTE | 2017-03-31 14:49 | Infectious Disease Progress Nt ---
Progress Note Date of Service Mar 31, 2017. Subjective Pt evaluation today including: conversation w/ patient, conversation w/ family , physical exam, chart review, lab review, review of studies, conversation w/ microsoft bi consultant, review of inpatient medication list Patient feeling better today. Less short of breath. No fever. All cultures unrevealing. Fungal serology pending. All Other Systems: Reviewed and Negative Medications Current Inpatient Medications Medications (Trade) Dose Ordered Sig/Bryan Route Start Time Stop Time Status Last Admin Dose Admin Heparin Sodium (Porcine) (Heparin Sq 5000 Unit/0.5ml) 5,000 unit Q8 SQ 03/26/17 22:00 04/25/17 21:59 03/31/17 14:00 5,000 UNIT Acetaminophen (Tylenol Tab) 650 mg Q4H PRN PO 03/26/17 18:45 04/25/17 18:44 03/26/17 19:49 650 MG Albuterol Sulfate (Ventolin 0.083% 2.5MG/3ML Neb) 2.5 mg Q6R INH 03/26/17 21:00 04/25/17 20:59 03/31/17 14:35 2.5 MG Budesonide/ Formoterol Fumarate (Symbicort 160/ 4.5 Inh) 2 puffs BID INH 03/26/17 21:00 04/25/17 20:59 03/31/17 08:04 2 PUFFS Fluticasone Propionate (Flonase Nasal [place]) 2 sprays QAM NA 03/27/17 09:00 04/26/17 08:59 03/31/17 08:02 2 SPRAYS Ranitidine HCl (zANTac TAB) 300 mg HS PO 03/26/17 21:00 04/25/17 20:59 03/30/17 20:40 300 MG Tiotropium [place] (Spiriva Handihaler Inhaler) 1 puff DAILY INH 03/27/17 09:00 04/26/17 08:59 03/31/17 08:05 1 PUFF Cholestyramine Resin (Questran Powder Light) 4 gm BID PO 03/26/17 21:00 04/25/17 20:59 03/31/17 08:03 4 GM Pantoprazole Sodium (Protonix Tab) 40 mg QAM PO 03/27/17 09:00 2/3/18 08:59 03/31/17 08:04 40 MG Albuterol/ Ipratropium (Duoneb) 3 ml Q4R PRN INH 03/26/17 19:00 04/25/17 18:59 03/26/17 23:35 3 ML Promethazine HCl 12.5 mg/Sodium Chloride 50.5 ml @ 204 mls/hr Q6H PRN IV 03/26/17 19:15 04/25/17 19:14 Vancomycin HCl (Consult) 1 ea UD PRN N/A 03/26/17 20:00 04/25/17 19:59 Piperacillin Sod/ Tazobactam Sod (Consult) 1 ea UD PRN N/A 03/26/17 20:00 04/25/17 19:59 Miscellaneous Information 1 ea UD PRN N/A 03/26/17 20:00 04/25/17 19:59 Piperacillin Sod/ Tazobactam Sod 3.375 gm/Dextrose 115 ml @ 28.75 mls/ hr Q8H IV 03/27/17 02:00 04/02/17 17:59 03/31/17 10:12 28.75 MLS/HR Voriconazole 280 mg/Sodium Chloride 100 ml @ 50 mls/hr Q12H IV 03/27/17 22:00 04/02/17 21:59 03/31/17 10:12 50 MLS/HR Diphenhydramine HCl (Benadryl Cap) 25 mg Q6H PRN PO 03/27/17 14:00 04/26/17 13:59 03/27/17 20:55 25 MG Metoprolol Succinate (Toprol Xl Tab) 12.5 mg QAM PO 03/28/17 09:00 04/26/17 08:59 03/31/17 08:05 12.5 MG Benzonatate (Tessalon Perles Cap) 100 mg Q8H PRN PO 03/28/17 02:00 04/27/17 01:59 03/30/17 22:53 100 MG Vancomycin HCl 1500 mg/Sodium Chloride 530 ml @ 200 mls/hr Q12H IV 03/28/17 14:00 04/02/17 13:59 03/31/17 14:00 200 MLS/HR Magnesium Chloride (Slow-Mag Tab) 64 mg BID PO 03/30/17 09:00 04/01/17 08:59 03/31/17 08:04 64 MG Phenol (Chloraseptic 1.4% [place]) 1 sprays PRN PRN MT 03/30/17 22:45 04/29/17 22:44 03/31/17 00:09 1 SPRAYS Prednisone (PredniSONE TAB) 15 mg DAILY PO 04/01/17 08:00 04/26/17 08:59 Albuterol/ Ipratropium (Duoneb) 3 ml Q2H PRN INH 03/31/17 05:30 04/30/17 05:29 Objective Vital Signs Date Time Temp Pulse Resp B/P (MAP) Pulse Ox O2 Delivery O2 Flow Rate FiO2 03/31/17 14:39 36.5 80 16 96 Room Air 03/31/17 14:35 80 16 96 Room Air 03/31/17 08:00 96 Room Air 03/31/17 07:24 98 16 96 Room Air 03/31/17 07:13 36.5 80 18 149/91 (110) 92 Room Air 03/31/17 05:38 87 16 92 Room Air 03/31/17 01:53 86 16 90 Room Air 03/31/17 00:20 92 Room Air 03/30/17 23:20 36.6 79 18 153/82 (105) 94 Room Air 03/30/17 20:02 81 16 92 Room Air 03/30/17 16:57 78 16 95 Room Air 03/30/17 16:00 Room Air 03/30/17 15:45 36.8 68 18 146/80 (102) 93 Room Air Physical Exam General Appearance: WD/WN, no apparent distress Eyes: normal inspection, EOMI, sclerae normal ENT: normal ENT inspection, pharynx normal Neck: supple, no adenopathy, thyroid normal, trachea midline Respiratory/Chest: chest non-tender, no respiratory distress, + rales Cardiovascular: regular rate, rhythm, no gallop, no murmur Abdomen: normal bowel sounds, non tender, soft, no organomegaly Extremities: non-tender, no calf tenderness Neurologic/Psychiatric: alert, normal mood/affect, oriented x 3 Skin: normal color, no rash Lymphatic: no adenopathy Laboratory Results RUN DATE: 03/30/17 [facility] LAB PAGE 1 RUN TIME: 1133 Specimen Inquiry PATIENT: LUIS ALFREDO DEL CID LOC: [id number] U # : [id number] AGE/SX: 57/F ROOM: [facility] REG : 03/26/[address]: Remy Pérez MD : 1960 BED: 1 DIS : STATUS: ADM IN TLOC: SPEC #: [id number] MAGO: 03/28/17-UNK STATUS: COMP REQ #: [id number] RECD: 03/28/17-[address]: Katie Ng M.D. SOURCE: [facility] WASH ENTR: 03/28/17-1130 [facility] DR: Brian Solitario MD SPDC: LT Sarah Carcamo M.D., Jill ., P.A.-CRemy Ott MD ORDERED: [facility] CUL/SM Procedure Result Verified Site GRAM STAIN Final 03/29/17-822 RESULT MODERATE WBCs SEEN NO ORGANISMS SEEN BRONCH WASH CULTURE Final 03/30/17-1132 LIGHT NORMAL LINDA. Last 24 Hours Test 03/31/17 06:28 Sodium Level 144 mmol/L Potassium Level 3.1 mmol/L Chloride Level 109 mmol/L Carbon Dioxide Level 30 mmol/L Anion Gap 5.0 mmol/L Blood Urea Nitrogen 9 mg/dl Creatinine 0.76 mg/dl Est Creatinine Clear Calc Drug Dose 76.2 ml/min Estimated GFR () 99.5 Estimated GFR (Non- 85.9 BUN/Creatinine Ratio 11.3 Random Glucose 90 mg/dl Calcium Level 8.4 mg/dl Magnesium Level 1.9 mg/dl Assessment and Plan The 57-year-old female with longstanding rheumatoid arthritis on significant immunosuppressive therapy now with extensive infiltration involving all lobes of the lung. All cultures negative, patient improved, and procalcitonin low. Agree that patient can be transitioned to oral antibiotic therapy, and would recommend use of levofloxacin 750 milligrams daily for 5 more days. Fungal cultures are negative, so would hold off on antifungal therapy pending further serologic results. Discussed with Dr. Pérez.
--- NOTE | 2017-04-02 12:33 | EDITING REQUIRED CODING QUERY ---
CODING QUERY To promote full compliance with coding requirements relating to patient care, provider participation is requested in all cases of medical biller coder uncertainty. Please assist us with the question(s) below: Coding Question(s): Patient presenting with acute/chronic respiratory failure.. Work-up for angioinvasive aspergillus which included bronchoscopy and BAL and fungal serologies sent . Please document, if known or suspected the etiology of the acute respiratory failure - the diagnosis that was responsible for this inpatient stay..( OP report mentions Pneumonia.) Thanks for your help! Puneet Marmolejo, [facility] Physician's Response(s): Unclear etiology, In setting of COPD and Rheumatoid arthritis. Possible Pneumonia Principal Diagnosis: "_that condition established after study, to be chiefly responsible for occasioning the admission of the patient to the hospital for care." Co-Existing Principal Diagnosis: "_when two or more diagnoses equally meet the criteria for principal diagnosis as determined by the circumstances of admission, diagnostic work up, and/or therapy provided, and the Alphabetic Index, Tabular List, or another coding guideline does not provide sequencing direction, any one of the diagnoses may be sequenced first." "When the physician has documented what appears to be a current diagnosis in the body of the record, but has not included the diagnosis in the final diagnostic statement, the physician should be asked whether the diagnosis should be added." (Source Coding [facility] 2 QTR90. p3-4)
[2017-04-24 01:39] LABS: HERPES SIMPLEX VIRUS CULT NOT ISOLATED (NOT ISOLATED)
== END 2017-03-31 15:59 | disposition home or self-care (01) | DRG 166 ==
LOC: C.EDB 15:16 → C.2T 18:38 → ENRESERV 18:57 → C.MS4W 03-30 12:50
PROVIDERS: ADMIT Internal Medicine; ATTEND Internal Medicine
PROC: 0B9J8ZX Drainage of Left Lower Lung Lobe, Via Natural or Artificial Opening Endoscopic, Diagnostic (ICD-10-PCS; principal; 2017-03-28 10:00)
PROC: 0B9C8ZX Drainage of Right Upper Lung Lobe, Via Natural or Artificial Opening Endoscopic, Diagnostic (ICD-10-PCS; principal; 2017-03-28 10:00)
DX: J44.0 Chronic obstructive pulmonary disease with (acute) lower respiratory infection (principal); J18.9 Pneumonia, unspecified organism; J96.21 Acute and chronic respiratory failure with hypoxia; M06.9 Rheumatoid arthritis, unspecified; K21.9 Gastro-esophageal reflux disease without esophagitis; R73.03 Prediabetes; Z83.3 Family history of diabetes mellitus; Z82.49 Family history of ischemic heart disease and other diseases of the circulatory system; Z79.899 Other long term (current) drug therapy

== ENCOUNTER → 2017-06-26 | Outpatient (CLI) | payer BC ==
[~2017-06-26] MED LIST changes: -ASPI-232 PO; -CHLL PO; +LVQ750 PO; +MCRK20 PO; +MTHI50 INJ; -OXYC-57 PO; +PRED10TA PO; -PRED20TA PO; -PROAIR INH; +RANI300T2 PO; +RRALBUTNEB NEB; +SPRIN/30 INH; +VNTHFA/IN INH
--- NOTE | 2017-06-26 10:11 | DIAGNOSTIC IMAGING REPORT ---
CHEST 2 VIEWS ROUTINE CLINICAL HISTORY: J44.9 Chronic obstructive pulmonary [id number] Cough COMPARISON STUDY: 03/31/2017 FINDINGS: The cardiac and mediastinal contours are normal. There is no evidence of focal pulmonary consolidation. There is no evidence of failure. No pleural effusions are visualized.[ IMPRESSION: No active disease in the chest. Electronically signed by: Homer Donnelly M.D. 06/26/2017 10:10 AM Dictated Date/Time: 06/26/2017 10:09 AM
== END | disposition home or self-care (01) ==
LOC: C.RAD1850 09:56
PROVIDERS: ATTEND Dermatology
DX: J44.9 Chronic obstructive pulmonary disease, unspecified (principal); R05 Cough

== ENCOUNTER 2018-04-20 03:05 | Inpatient (IN) ==
[2018-04-20] MEDS ORDERED: ALBUT/IPRATROP 3MG/0.5MG NEB 3 ML VIAL NEB STA (03:30)
[2018-04-20] MEDS ORDERED: SODIUM CHLORIDE 0.9% 1000ML 1,000 ML IV SCH ×3 (03:30→09:50)
[2018-04-20 03:41] LABS: Basophils # (auto) 0.02 K/uL (0-0.2); Basophils % (auto) 0.3 %; Eosinophils # (auto) 0.08 K/uL (0-0.5); Eosinophils % (auto) 1.2 %; Hematocrit (blood only) 41.2 % (37-47); Hemoglobin 13.4 g/dL (12.0-16.0); Immature Granulocytes # (auto) 0.03 K/uL (0.00-0.02); Immature Granulocytes % (auto) 0.4 %; Lymphocytes # (auto) 0.58 K/uL (1.2-3.4); Lymphocytes % (auto) 8.7 %; Mean Corpuscular Hgb Conc 32.5 g/dL (32-36); Mean Corpuscular Volume 98.1 fL (80-100); Mean Platelet Volume 9.9 fL (7.4-10.4); Neutrophils # (auto) 5.59 K/uL (1.4-6.5); Neutrophils % (auto) 83.4 %; Platelet Count 168 K/uL (130-400); RDW Coefficient of Variation 15.5 % (11.5-14.5); RDW Standard Deviation 55.4 fL (36.4-46.3)
[2018-04-20 03:58] LABS: Albumin Level 3.7 gm/dl (3.4-5.0); Calcium 8.8 mg/dl (8.5-10.1); Creatinine Clr Calc Pharmacy 71.4 ml/min; Est GFR (African American) 100.4; Est GFR (Non-African American) 86.6; Potassium 4.2 mmol/L (3.5-5.1)
[2018-04-20 04:01] LABS: Albumin Globulin Ratio 1.2 (0.9-2); Bilirubin,Total 0.4 mg/dl (0.2-1); Total Protein 6.7 gm/dl (6.4-8.2)
[2018-04-20] MEDS ORDERED: ACETAMINOPHEN 1,000 MG/100 ML VIAL IV ONE (04:04)
[2018-04-20] MEDS ORDERED: KETOROLAC 30 MG/ML VIAL IV STA (04:04)
[2018-04-20 04:13] LABS: Base Excess VBG 1.9 mEq/L; HCO3 VBG 28 mmol/L; Oxygen Saturation VBG < 60.0 %; PCO2 VBG 51 mmHg (38-50); PO2 VBG 31 mmHg; pH VBG 7.36 (7.36-7.41)
[2018-04-20] MEDS ORDERED: OSELTAMIVIR PHOSPHATE 75 MG CAP PO STA (04:37)
[2018-04-20 05:04] LABS: Appearance Urine Clear (Clear); Bilirubin Urine Negative (Negative); Color Urine Yellow; Glucose Urine UA Negative (Negative); Ketones Urine Negative (Negative); Leukocyte Esterase Urine Negative (Negative); Nitrite Urine Negative (Negative); Protein Urine Negative (Negative); Specific Gravity Urine 1.025 (1.000-1.030); Urobilinogen Urine Negative (Negative); pH Urine 5.5 (4.5-7.5)
--- NOTE | 2018-04-20 07:00 | XRay Report ---
XR chest 2V routine CLINICAL HISTORY: Fever. Cough. COMPARISON STUDY: 01/26/2018 FINDINGS: The cardiac and mediastinal contours are normal. There is no evidence of focal pulmonary co nsolidation. There is no evidence of failure. No pleural effusions are visualized.[ IMPRESSION: No active disease in the chest. Electronically signed by: Homer Donnelly M.D. 04/20/2018 6:59 AM
--- NOTE | 2018-04-20 07:01 | Emergency Department Note ---
History of Present Illness General Chief complaint: Illness Stated complaint: VOMITING, COUGH, ABD PAIN Time Seen by Provider: 04/20/18 03:14 History of Present Illness This is a 58-year-old female presenting to the emergency department for evaluation of fever and cough worsening over the past 1 day. The patient states that the cough is so severe she is having posttussive emesis as well as generalized abdominal pain. The patient has a history of asthma and does feel short of breath. The patient does not have known exposure to disease, although her grandchildren were visiting over the weekend. The patient has not taken anything [id number] for her symptoms, and rates her current discomfort a 9 /10. Home Medications Home Medications Medication Instructions Recorded Confirmed Type abatacept 125 mg SUBCUT WK 01/26/18 01/26/18 History albuterol sulfate 2 puff INHALATION Q4 PRN 01/26/18 01/26/18 History budesonide-formoterol [Symbicort] 2 puff INHALATION BID 01/26/18 01/26/18 History cholestyramine (with sugar) 4 g PO BID 01/26/18 01/26/18 History folic acid 1 mg PO DAILY 01/26/18 01/26/18 History losartan 25 mg PO DAILY 01/26/18 01/26/18 History methotrexate sodium 17.5 mg SUBCUT WK 01/26/18 01/26/18 History metoprolol succinate 25 mg PO DAILY 01/26/18 01/26/18 History omeprazole 40 mg PO DAILY 01/26/18 01/26/18 History prednisone 1 mg PO UD 01/26/18 01/26/18 History teriparatide [Forteo] 20 mcg SUBCUT DAILY 01/26/18 01/26/18 History tiotropium bromide 1 cap INHALATION DAILY 01/26/18 01/26/18 History guaifenesin 200 mg PO Q8H PRN #15 tab 01/27/18 Rx Allergies Allergy/AdvReac Type Severity Reaction Status Date / Time No Known Allergies Allergy Unverified 01/26/18 23:43 Past Med/Surg History Medical History Asthma Rheumatoid arthritis Social History Current Living Situation: Spouse Feels Safe at Home: Yes Smoking Status: Never smoker Second Hand Exposure: No Hx Alcohol Use: No Hx Substance Use: No Beliefs That Will Affect Care: None Preferred Language: Kiswahili Review of Systems A total of 10 systems reviewed and were otherwise negative Physical Exam Vital Signs Vital Signs - 24 hr 04/20/18 03:08 04/20/18 03:29 04/20/18 03:31 Temperature 38.7 C H Temperature Source Oral Sepsis Recent Fever Within 48 Hours No Sepsis Action Taken by Nursing No Action Required Pulse Rate 102 H Pulse Rate [Left] Respiratory Rate 18 Respiratory Effort / Characteristics Non-Labored Respiratory Depth Normal Blood Pressure 109/66 Blood Pressure [Left Arm] Blood Pressure Mean 80 Blood Pressure Mean [Left Arm] Pulse Oximetry 89 L 86 L 94 Oxygen Delivery Method Room Air Room Air Nasal Cannula Oxygen Flow Rate 2 04/20/18 05:01 04/20/18 06:25 Temperature 36.5 C Temperature Source Oral Sepsis Recent Fever Within 48 Hours Sepsis Action Taken by Nursing Pulse Rate Pulse Rate [Left] 99 H Respiratory Rate 20 Respiratory Effort / Characteristics Non-Labored Respiratory Depth Blood Pressure Blood Pressure [Left Arm] 101/55 L Blood Pressure Mean Blood Pressure Mean [Left Arm] 70 Pulse Oximetry 97 96 Oxygen Delivery Method Nasal Cannula Nasal Cannula Oxygen Flow Rate 2 2 VITALS: Vitals are noted on the nurse's note and reviewed by myself. Vital signs with fever, tachycardia, and low O2 saturation GENERAL: Very ill-appearing female who is cooperative with the examination HEAD: Normocephalic atraumatic. EARS: External ear normal. External auditory canals clear, tympanic membranes pearly ma without erythema or effusion bilaterally. EYES: Pupils equal round and reactive to light and accommodation. Conjunctivae without injection, sclerae without icterus. Extraocular movements intact. NOSE: Patent, turbinates without inflammation or discharge. MOUTH: Mucous membranes moist. Tonsils are not enlarged. Pharynx without erythema, blood, or exudate. Uvula midline. Airway patent. NECK: Supple without nuchal rigidity. No lymphadenopathy. No thyromegaly. Cervical spine is nontender. HEART: Regular rate and rhythm without murmurs gallops or rubs. LUNGS: Generally clear coughlin with left lower crackles ABDOMEN: Positive normal bowel sounds x 4. Soft, nontender, without masses or organomegaly. No guarding or rebound tenderness. MUSCULOSKELETAL: No muscle atrophy, erythema, or edema noted. Full range of motion in all extremities. NEURO: Patient was alert and oriented to person place and time. CN II through XII grossly intact. SKIN: The skin was without rashes, erythema, edema, or bruising. Capillary refill less than 2 seconds. Course Administered Medications Discontinued Medications Albuterol (Duoneb) 3 ml NEB NOW STA Stop: 04/20/18 03:31 Last Admin: 04/20/18 03:50 Dose: 3 ml Sodium Chloride (Nss 1000ml) 1,000 mls @ 999 mls/hr IV .Q1H1M NEELIMA Stop: 04/20/18 04:30 Last Infusion: 04/20/18 04:24 Dose: 0 mls/hr Admin: 04/20/18 03:50 Dose: 999 mls/hr Acetaminophen (Ofirmev) 1,000 mg in 100 mls @ 400 mls/hr IV NOW ONE Stop: 04/20/18 04:18 Last Infusion: 04/20/18 04:40 Dose: 0 mls/hr Admin: 04/20/18 04:11 Dose: 400 mls/hr Sodium Chloride (Nss 1000ml) 1,000 mls @ 999 mls/hr IV .Q1H1M NEELIMA Stop: 04/20/18 06:00 Last Infusion: 04/20/18 06:26 Dose: 0 mls/hr Infusion: 04/20/18 06:14 Dose: 0 mls/hr Admin: 04/20/18 05:00 Dose: 999 mls/hr Ketorolac Tromethamine (Toradol) 30 mg IV NOW STA Stop: 04/20/18 04:05 Last Admin: 04/20/18 04:11 Dose: 30 mg Oseltamivir Phosphate (Tamiflu) 75 mg PO NOW STA Stop: 04/20/18 04:38 Last Admin: 04/20/18 05:00 Dose: 75 mg Medical Decision Making Differential Diagnosis Differential diagnosis: Etiologies such as viral syndrome, otitis, pharyngitis, pneumonia, influenza, meningitis, urinary tract infection, septic arthritis, soft tissue infectious process, intra-abdominal process, sepsis, bacteremia, as well as others were entertained. Laboratory Data Result diagrams: 04/20/18 03:25 04/20/18 03:25 Lab Results 04/20/18 04/20/18 04/20/18 Range/Units 03:25 03:25 03:40 WBC 6.70 (4.8-10.8) K/uL RBC 4.20 (4.2-5.4) M/uL Hgb 13.4 (12.0-16.0) g/dL Hct 41.2 (37-47) % MCV 98.1 (80-100) fL MCH 31.9 (25-34) pg MCHC 32.5 (32-36) g/dL RDW Std Deviation 55.4 H (36.4-46.3) fL RDW Coeff of Ashtyn 15.5 H (11.5-14.5) % Plt Count 168 (130-400) K/uL MPV 9.9 (7.4-10.4) fL Immature Gran % (Auto) 0.4 % Neut % (Auto) 83.4 % Lymph % (Auto) 8.7 % [place] % (Auto) 6.0 % Eos % (Auto) 1.2 % Baso % (Auto) 0.3 % Immature Gran # (Auto) 0.03 H (0.00-0.02) K/uL Neut # (Auto) 5.59 (1.4-6.5) K/uL Lymph # (Auto) 0.58 L (1.2-3.4) K/uL [place] # (Auto) 0.40 (0.11-0.59) K/uL Eos # (Auto) 0.08 (0-0.5) K/uL Baso # (Auto) 0.02 (0-0.2) K/uL VBG pH (7.36-7.41) VBG pCO2 (38-50) mmHg VBG pO2 mmHg VBG HCO3 mmol/L VBG O2 Saturation % VBG Base Excess mEq/L Barometric Pressure mm/Hg Sodium 139 (136-145) mmol/L Potassium 4.2 (3.5-5.1) mmol/L Chloride 106 (98-107) mmol/L Carbon Dioxide 29 (21-32) mmol/L Anion Gap 4.0 (3-11) BUN 12 (7-18) mg/dl Creatinine 0.75 (0.6-1.2) mg/dl Est Cr Clr Drug Dosing 71.4 ml/min Est GFR ( Amer) 100.4 Est GFR (Non-Af Amer) 86.6 BUN/Creatinine Ratio 16.0 (10-20) Glucose 106 H (70-99) mg/dl Lactate (0.4-2.0) mmol/L Calcium 8.8 (8.5-10.1) mg/dl Total Bilirubin 0.4 (0.2-1) mg/dl AST 26 (15-37) U/L ALT 37 (12-78) U/L Alkaline Phosphatase 232 H (45-117) U/L Total Protein 6.7 (6.4-8.2) gm/dl Albumin 3.7 (3.4-5.0) gm/dl Globulin 3.0 (2.5-4.0) gm/dl Albumin/Globulin Ratio 1.2 (0.9-2) Urine Color Urine Appearance (Clear) Urine pH (4.5-7.5) Ur Specific Bernie (1.000-1.030) Urine Protein (Negative) Urine Glucose (UA) (Negative) Urine Ketones (Negative) Urine Blood (Negative) Urine Nitrite (Negative) Urine Bilirubin (Negative) Urine Urobilinogen (Negative) Ur Leukocyte Esterase (Negative) Influenza Type A Ag Pos for Influ A A* (Neg) Influenza Type B Ag Neg for Influ B (Neg) 04/20/18 04/20/18 04/20/18 Range/Units 03:57 04:03 04:55 WBC (4.8-10.8) K/uL RBC (4.2-5.4) M/uL Hgb (12.0-16.0) g/dL Hct (37-47) % MCV (80-100) fL MCH (25-34) pg MCHC (32-36) g/dL RDW Std Deviation (36.4-46.3) fL RDW Coeff of Ashtyn (11.5-14.5) % Plt Count (130-400) K/uL MPV (7.4-10.4) fL Immature Gran % (Auto) % Neut % (Auto) % Lymph % (Auto) % [place] % (Auto) % Eos % (Auto) % Baso % (Auto) % Immature Gran # (Auto) (0.00-0.02) K/uL Neut # (Auto) (1.4-6.5) K/uL Lymph # (Auto) (1.2-3.4) K/uL [place] # (Auto) (0.11-0.59) K/uL Eos # (Auto) (0-0.5) K/uL Baso # (Auto) (0-0.2) K/uL VBG pH 7.36 (7.36-7.41) VBG pCO2 51 H (38-50) mmHg VBG pO2 31 mmHg VBG HCO3 28 mmol/L VBG O2 Saturation < 60.0 % VBG Base Excess 1.9 mEq/L Barometric Pressure 732.8 mm/Hg Sodium (136-145) mmol/L Potassium (3.5-5.1) mmol/L Chloride (98-107) mmol/L Carbon Dioxide (21-32) mmol/L Anion Gap (3-11) BUN (7-18) mg/dl Creatinine (0.6-1.2) mg/dl Est Cr Clr Drug Dosing ml/min Est GFR ( Amer) Est GFR (Non-Af Amer) BUN/Creatinine Ratio (10-20) Glucose (70-99) mg/dl Lactate 0.9 (0.4-2.0) mmol/L Calcium (8.5-10.1) mg/dl Total Bilirubin (0.2-1) mg/dl AST (15-37) U/L ALT (12-78) U/L Alkaline Phosphatase (45-117) U/L Total Protein (6.4-8.2) gm/dl Albumin (3.4-5.0) gm/dl Globulin (2.5-4.0) gm/dl Albumin/Globulin Ratio (0.9-2) Urine Color Yellow Urine Appearance Clear (Clear) Urine pH 5.5 (4.5-7.5) Ur Specific Bernie 1.025 (1.000-1.030) Urine Protein Negative (Negative) Urine Glucose (UA) Negative (Negative) Urine Ketones Negative (Negative) Urine Blood Negative (Negative) Urine Nitrite Negative (Negative) Urine Bilirubin Negative (Negative) Urine Urobilinogen Negative (Negative) Ur Leukocyte Esterase Negative (Negative) Influenza Type A Ag (Neg) Influenza Type B Ag (Neg) Imaging Data Radiologist's Impression: XR chest 2V routine CLINICAL HISTORY: Fever. Cough. COMPARISON STUDY: 01/26/2018 FINDINGS: The cardiac and mediastinal contours are normal. There is no evidence of focal pulmonary consolidation. There is no evidence of failure. No pleural effusions are visualized.[ IMPRESSION: No active disease in the chest. MDM Narrative Physical exam and history were performed. Nursing notes, EMR, and Medication List were personally reviewed. Patient appears to have acute febrile illness on examination. The patient does not appear well. She is tachycardic with high fever. The patient was at 85-86 % on room air upon arrival to her ER room. The patient was immediately placed on oxygen. DuoNeb was ordered. IV access was established and labs were obtained. Blood cultures x2 were obtained. X-ray was ordered. Viral swab for influenza was performed by nursing. The patient was hydrated with 2 L normal saline. She was given IV Toradol and IV Tylenol. The patient blood work is as above and was reviewed. She does not have a significantly elevated white blood cell count, gross anemia, bandemia, or significant electrolyte imbalance. VBG is without acute findings. Transaminases are not diagnostic. Chest x-ray was reviewed by myself and radiology as showing no acute process. Urine is without evidence of infection. The patient's influenza swab is positive for influenza A and the patient was given oral Tamiflu. On reevaluation the patient continues to require oxygen to maintain her O2 saturation. Clinically she feels improved and her heart rate has started to normalize with antipyretics and fluids. Overall I have considerable concern for the patient's well-being as she does have influenza and hypoxia. The case was discussed with the on-call hospitalist who agreed to evaluate the patient here in the department. Please see their dictation for further patient course, plan, and disposition. The chart was completed utilizing [employer] Voice Recognition Software. Grammatical errors, random word insertions, pronoun errors, and incomplete sentences are an occasional consequence of this system due to software limitations, ambient noise, and hardware issues. Any formal questions or concerns about the content, text, or information contained within the body of this dictation should be directly addressed to the provider for clarification. . Impression & Plan Hypoxia, Influenza A Discharge Plan Visit Data Chief Complaint: Illness Stated Complaint: VOMITING, COUGH, ABD PAIN ED Provider: Felecia Singh ED Midlevel Provider: Nico Torres Discharge Problem: Hypoxia, Influenza A Forms Stand Alone Forms: My [facility] Prescriptions Prescriptions: No Action folic acid 1 mg Tablet 1 mg PO DAILY RF: 0 methotrexate sodium 25 mg/mL solution 17.5 mg subcut WK RF: 0 losartan 25 mg tablet 25 mg PO DAILY RF: 0 abatacept 125 mg/mL syringe 125 mg subcut WK RF: 0 omeprazole 40 mg Capsule,Delayed Release(Dr/Ec) 40 mg PO DAILY RF: 0 albuterol sulfate 90 mcg/actuation Hfa Aerosol Inhaler 2 puff INHALATION Q4 PRN (Reason: Wheezing) RF: 0 cholestyramine (with sugar) 4 gram powder in packet 4 g PO BID RF: 0 tiotropium bromide 18 mcg capsule, w/inhalation device 1 cap Inhalation DAILY RF: 0 prednisone 1 mg Tablet 1 mg PO UD RF: 0 metoprolol succinate 25 mg tablet extended release 24 hr 25 mg PO DAILY RF: 0 budesonide-formoterol [Symbicort] 160-4.5 mcg/actuation Hfa Aerosol Inhaler 2 puff INHALATION BID RF: 0 teriparatide [Forteo] 20 mcg/dose - 600 mcg/2.4 mL Pen Injector 20 mcg SUBCUT DAILY RF: 0 guaifenesin 200 mg tablet 200 mg PO Q8H PRN (Reason: cough) Qty: 15 RF: 0 Referrals Referrals: Sarah Zapata MD [Primary Care Provider] -
[2018-04-20] MEDS ORDERED: NITROGLYCERIN SL 0.4 MG/TAB TAB SL PRN (09:25)
[2018-04-20] MEDS ORDERED: ACETAMINOPHEN 325 MG TAB PO PRN (09:25)
[2018-04-20] MEDS ORDERED: ONDANSETRON INJ 2 MG/ML 2 ML VIAL IV PRN (09:25)
[2018-04-20] MEDS ORDERED: XOPENEX/ATROVENT 1.25mg/0.5MG NEB COMBO NEB PRN (09:25)
[2018-04-20] MEDS ORDERED: LEVALBUTEROL 1.25MG/0.5ML NEB INH SCH (09:25)
[2018-04-20] MEDS ORDERED: predniSONE 20 MG TAB PO STA (09:25)
[2018-04-20] MEDS ORDERED: ALBUTEROL HFA 8 GM INHALER INH PRN (09:25)
[2018-04-20] MEDS ORDERED: XOPENEX/ATROVENT 1.25mg/0.5MG NEB COMBO NEB SCH (09:25)
[2018-04-20] MEDS ORDERED: IPRATROPIUM BROMIDE NEB SOLN 0.02% 2.5 ML VIAL INH SCH (09:25)
--- NOTE | 2018-04-20 10:38 | History and Physical Report ---
DATE OF ADMISSION: 04/20/2018 CHIEF COMPLAINT: Fever and cough. HISTORY OF PRESENT ILLNESS: This is a 58-year-old female with past medical history significant for palpitations, PVCs, GERD, rheumatoid arthritis involving multiple sites, degenerative disk disease, steroid induced osteoporosis, possible COPD, presents with feeling aches and pains, fever starting last Friday. Yesterday, she has also had nausea, and she vomited for couple of hours and was not feeling well and came to the ER and found to be flu positive.Currently resting comfortably, hemodynamically stable. Currently denies any shortness of breath, no chest pain. Nausea is better. She has some headaches, no blurred vision, has mild runny nose. Appetite is not that great for the last few days. No abdominal pain. She is constipated. Normal bladder movements. She has been treated for bronchitis with 2 courses of prednisone, and last course was a couple of weeks ago, and she was also in the hospital in January for acute bronchitis, and supposed to follow with pulmonary, Dr. Brice but did not follow so far. ALLERGIES: No known drug allergies. PAST MEDICAL HISTORY: As mentioned above. PAST SURGICAL HISTORY: Colonoscopy, right knee arthroscopy. EGD, lysis of labial lesions, ligation of oviduct. MEDICATIONS: Patient is on Forteo 20 mcg subcutaneous once daily, Orencia 100 mcg subcutaneously every week, methotrexate 17.5 mg once weekly, folic acid 1 mg daily, Cozaar 25 mg p.o. daily, Toprol xl 50mg p.o. daily, Spiriva 18 mcg inhalation daily, Symbicort 160/4.5 two puffs b.i.d., albuterol 2 puffs every 4 hours p.r.n., Questran 4 g before meals, omeprazole 40 mg p.o. daily. FAMILY HISTORY: Significant for mother who has renal cancer and diabetes. Father had GA, hypertension. SOCIAL HISTORY: , lives with her . No smoking history but had passive smoking as her father used to smoke. No alcohol use, no drug use. REVIEW OF SYMPTOMS: As per HPI. Rest of the review of symptoms negative. PHYSICAL EXAMINATION: GENERAL: Patient is of moderate build, not in acute distress. VITAL SIGNS: Temperature 38.7, pulse 102, respiratory rate 18, blood pressure 109/56, oxygen saturation 97% on room air. HEENT: No pallor, no icterus. Pupils equal, round, and reactive to light. NECK: No JVD, no neck mass, no carotid bruit. CARDIOVASCULAR SYSTEM: S1 and S2, regular rate and rhythm, no murmur, no gallop. RESPIRATORY SYSTEM: Normal AP diameter. No accessory muscle use. Mild occasional wheezing. No crackles. ABDOMEN: Soft, bowel sounds present, nontender, no distention. CENTRAL NERVOUS SYSTEM: Cranial nerves II through XII grossly intact. Nonfocal. EXTREMITIES: No edema, no erythema. LABORATORY DATA: WBC 6.7, hemoglobin 13.4, hematocrit 41.2, platelets 168. Venous blood gasses show pH is 7.3, pCO2 of 51, pO2 of 31, bicarbonate 28, oxygen less than 50%. Sodium 139, potassium 4.2, chloride 106, bicarbonate 29, BUN 12, creatinine 0.75, glucose 106. Lactate 0.9. Calcium 8.8, total bilirubin 0.4, AST 26, ALT 37, alkaline phosphatase 232. Urinalysis negative. Influenza A positive. IMAGING: Chest x-ray: No acute findings seen. ASSESSMENT AND PLAN: This is a 58-year-old female who presents with fever, cough, and flu positive. 1. Influenza A positive. Patient has taken the flu vaccine. Patient has rheumatoid arthritis and also has couple of courses of prednisone for tamiflu. Supportive care. 2. Mild chronic obstructive pulmonary disease exacerbation. Patient was supposed to follow with pulmonary for further testing of COPD, but she did not follow up. Will give patient Tamiflu, prednisone 40 mg daily,continue home inhalers. Xopenex, Atrovent around the clock and p.r.n. Monitor on the medical floor. 3. History of rheumatoid arthritis, hold methotrexate. Follows with rheumatology. 4. History of hypertension, continue Cozaar and Toprol XL. Monitor the blood pressure. 5. Gastroesophageal reflux disease, proton pump inhibitor. 6. History of PVCs and palpitations, on Toprol-XL. 7. Deep venous thrombosis prophylaxis, patient is on Lovenox. DISPOSITION: Admit to med/surg floor. Expect to discharge home and follow with the family doctor. Level 1 full code. MTDD
[2018-04-20 11:31] LABS: INR 1.1 (0.9-1.1); Partial Thromboplastin Time 26.1 Seconds (21.0-31.0); Prothrombin Time 10.6 Seconds (9.0-12.0)
[2018-04-20] MEDS: LOSARTAN POTASSIUM 25 MG TAB PO SCH (11:42)
[2018-04-20] MEDS: METOPROLOL SUCC 25MG EXT REL TAB PO SCH (11:42)
[2018-04-20] MEDS: FOLIC ACID 1 MG TAB PO SCH (11:42)
[2018-04-20] MEDS: PANTOprazole 40 MG TAB PO SCH (11:43)
[2018-04-20] MEDS: CHOLESTYRAMINE LIGHT 4 GM PKT PO SCH ×2 (11:43→22:10)
[2018-04-20] MEDS ORDERED: LEVALBUTEROL 1.25MG/0.5ML NEB INH PRN (11:45)
[2018-04-20] MEDS ORDERED: IPRATROPIUM BROMIDE NEB SOLN 0.02% 2.5 ML VIAL INH PRN (11:45)
[2018-04-20] MEDS: LEVALBUTEROL 1.25MG/0.5ML NEB INH SCH ×3 (12:00→23:11)
[2018-04-20] MEDS: IPRATROPIUM BROMIDE NEB SOLN 0.02% 2.5 ML VIAL INH SCH ×3 (12:00→23:11)
[2018-04-20] MEDS ORDERED: PIPERACILLIN/TAZOBACTAM 4.5 GM in DEXTROSE 5% 100 ML IV STA (13:54)
[2018-04-20] MEDS ORDERED: PIPERACILL/TAZOBAC CONSULT ACTIVE PRN (13:54)
[2018-04-20] MEDS ORDERED: PIPERACILLIN/TAZOBACTAM 3.375 GM in DEXTROSE 5% 100 ML IV ONE (14:15)
--- NOTE | 2018-04-20 14:53 | Hospitalist Progress Note ---
Date of Service April 20, 2018 Assessment & Plan (1) Influenza A: This is a 58-year-old female who presents with fever, cough,Influenza A positive. Fever likely due to Influenza A -continue tamiflu, nebulizer treatments, prednisone -follow blood culture results, no urinary tract infection, while likely the fever is related to viral influenza infection, will give empiric IV Zosyn since fevers are high (102 F), can de-escalate depending on culture results and clincial course Mild chronic obstructive pulmonary disease exacerbation mild hypoxia on room air as seen in recent vitals signs recordings continue nasal cannula treatment and try to wean other respiratory treatments as above, hold home inhalers while on duonebs as scheduled History of rheumatoid arthritis -reports problems to methotrexate in the past -no acute flare at this time Hold home dose Teriparatide Forteo (recombinant protein form of parathyroid hormone) for now History of hypertension continue Cozaar and Toprol XL History of Premature Ventricular Contractions and palpitations -no acute palpitations for now -telemetry monitoring -on Toprol-XL. Gastroesophageal reflux disease, proton pump inhibitor. Deep venous thrombosis prophylaxis: Lovenox. Subjective Patient seen and examined at bedside. Since presentation from the ED, patient have intermittent high fever of 102 F. Patient on nasal cannula. denies any worsening shortness of breath. denies vomiting since tomas on medical gonzalez. denies abdominal pain. denies chest pain. denies diarrhea. denies dsyuria Physical Exam 2 Vital Signs (Past 24 Hours): Last Vital Signs Temp 38.9 C H 04/20/18 11:55 Pulse 105 H 04/20/18 14:11 Resp 18 04/20/18 14:11 BP 125/68 04/20/18 11:55 Pulse Ox 92 04/20/18 14:11 Constitutional: WD/WN, vitals as above Eyes: PERRL, conjunctivae normal, anicteric sclerae ENMT: external ear and nose normal, oropharynx normal Respiratory: normal respiratory effort, lungs clear to auscultation (on nasal cannula) Cardiovascular: RRR, no murmur, no edema Gastrointestinal (Abdomen): normal bowel sounds, soft, nontender, no hepatosplenomegaly Musculoskeletal: Head/Neck/Chest: normocephalic and head atraumatic Neurologic: PERRL, EOMI, accommodation nl, no face palsy, no dysarthria Psychiatric: A+Ox3, euthymic affect
[2018-04-20] MEDS: ENOXAPARIN INJ 40 MG/0.4 ML SYR SQ SCH (15:12)
[2018-04-20] MEDS: TIOTROPIUM BROMIDE 5 PUFF/90 MCG INH INH SCH (15:46)
[2018-04-20] MEDS: BUDESONIDE/FORMOTEROL FUMARATE 160/4.5 60 PUFFS/INHALER INH SCH (15:46)
[2018-04-20] MEDS: PIPERACILLIN/TAZOBACTAM 3.375 GM in DEXTROSE 5% 100 ML IV SCH (19:46)
[2018-04-20] MEDS: OSELTAMIVIR PHOSPHATE 75 MG CAP PO SCH (19:48)
[2018-04-21] MEDS: PIPERACILLIN/TAZOBACTAM 3.375 GM in DEXTROSE 5% 100 ML IV SCH ×2 (04:14→13:04)
[2018-04-21 05:25] LABS: Basophils # (auto) 0.01 K/uL (0-0.2); Basophils % (auto) 0.2 %; Eosinophils # (auto) 0.01 K/uL (0-0.5); Eosinophils % (auto) 0.2 %; Hematocrit (blood only) 37.7 % (37-47); Hemoglobin 12.1 g/dL (12.0-16.0); Immature Granulocytes # (auto) 0.01 K/uL (0.00-0.02); Immature Granulocytes % (auto) 0.2 %; Lymphocytes # (auto) 0.47 K/uL (1.2-3.4); Lymphocytes % (auto) 10.9 %; Mean Corpuscular Hgb Conc 32.1 g/dL (32-36); Mean Corpuscular Volume 97.4 fL (80-100); Mean Platelet Volume 10.2 fL (7.4-10.4); Monocytes # (auto) 0.58 K/uL (0.11-0.59); Monocytes % (auto) 13.5 %; Neutrophils # (auto) 3.22 K/uL (1.4-6.5); Platelet Count 153 K/uL (130-400); RDW Coefficient of Variation 15.7 % (11.5-14.5); RDW Standard Deviation 55.6 fL (36.4-46.3); Red Blood Count 3.87 M/uL (4.2-5.4)
[2018-04-21 05:46] LABS: BUN Creatinine Ratio 19.2 (10-20); Calcium 8.1 mg/dl (8.5-10.1); Creatinine Clr Calc Pharmacy 83.6 ml/min; Est GFR (African American) 112.4; Magnesium 1.9 mg/dl (1.8-2.4); Potassium 3.8 mmol/L (3.5-5.1)
[2018-04-21] MEDS: LEVALBUTEROL 1.25MG/0.5ML NEB INH SCH ×2 (07:07→14:08)
[2018-04-21] MEDS: IPRATROPIUM BROMIDE NEB SOLN 0.02% 2.5 ML VIAL INH SCH ×2 (07:07→14:08)
[2018-04-21] MEDS: PANTOprazole 40 MG TAB PO SCH (08:16)
[2018-04-21] MEDS: predniSONE 20 MG TAB PO SCH (08:16)
[2018-04-21] MEDS: METOPROLOL SUCC 25MG EXT REL TAB PO SCH (08:16)
[2018-04-21] MEDS: LOSARTAN POTASSIUM 25 MG TAB PO SCH (08:16)
[2018-04-21] MEDS: OSELTAMIVIR PHOSPHATE 75 MG CAP PO SCH ×2 (08:17→20:46)
[2018-04-21] MEDS: FOLIC ACID 1 MG TAB PO SCH (08:17)
[2018-04-21] MEDS: ENOXAPARIN INJ 40 MG/0.4 ML SYR SQ SCH (09:14)
[2018-04-21] MEDS: CHOLESTYRAMINE LIGHT 4 GM PKT PO SCH ×2 (11:06→21:53)
--- NOTE | 2018-04-21 16:37 | Hospitalist Progress Note ---
Date of Service April 21, 2018 Assessment & Plan (1) Influenza A: This is a 58-year-old female who presents with fever, cough,Influenza A positive. Fever likely due to Influenza A -continue tamiflu, nebulizer treatments, prednisone -follow blood culture results, no urinary tract infection, while likely the fever is related to viral influenza infection, -given empiric IV Zosyn since fevers are high (102 F) from 04/20/18 to 04/21/18 -no fever on day of 04/21/18 so far -de-escalate to Doxycycline 100 mg BID starting on 04/21/18 as patient is clinically improving. awaiting the blood culture results Mild chronic obstructive pulmonary disease exacerbation mild hypoxia on room air as seen in recent vitals signs recordings continue nasal cannula treatment and try to wean stopped scheduled nebulizer treatments, will resume home dose inhalers History of rheumatoid arthritis -reports problems to methotrexate in the past -no acute flare at this time Hold home dose Teriparatide Forteo (recombinant protein form of parathyroid hormone) for now History of hypertension continue Cozaar and Toprol XL History of Premature Ventricular Contractions and palpitations -no acute palpitations for now -telemetry monitoring -on Toprol-XL. Gastroesophageal reflux disease, proton pump inhibitor. Deep venous thrombosis prophylaxis: Lovenox. Subjective Patient afebrile today while on Zosyn. Patient was seen and examined when on room air and reports breathing without acute distress. denies vomiting since being on medical gonzalez. denies abdominal pain. denies chest pain. denies diarrhea. denies dsyuria we discussed plans about transitioning to oral antibiotics. Patient's at bedside also reporting that their son at home may have flu like symptoms. Physical Exam 2 Vital Signs (Past 24 Hours): Last Vital Signs Temp 36.8 C 04/21/18 15:00 Pulse 103 H 04/21/18 15:00 Resp 16 04/21/18 15:00 BP 114/70 04/21/18 15:00 Pulse Ox 91 04/21/18 15:00 Constitutional: WD/WN, vitals as above Eyes: PERRL, conjunctivae normal, anicteric sclerae ENMT: external ear and nose normal, oropharynx normal Respiratory: normal respiratory effort, lungs clear to auscultation Cardiovascular: RRR, no murmur, no edema Gastrointestinal (Abdomen): normal bowel sounds, soft, nontender, no hepatosplenomegaly Musculoskeletal: Head/Neck/Chest: normocephalic and head atraumatic Neurologic: PERRL, EOMI, accommodation nl, no face palsy, no dysarthria Psychiatric: A+Ox3, euthymic affect
[2018-04-21] MEDS: DOXYCYCLINE HYCLATE 100 MG CAP PO SCH (20:45)
[2018-04-21] MEDS: BUDESONIDE/FORMOTEROL FUMARATE 160/4.5 60 PUFFS/INHALER INH SCH (21:52)
[2018-04-22] MEDS ORDERED: BENZONATATE 100 MG CAPSULE PO PRN (00:55)
[2018-04-22 07:07] LABS: Basophils # (auto) 0.01 K/uL (0-0.2); Basophils % (auto) 0.2 %; Eosinophils # (auto) 0.03 K/uL (0-0.5); Eosinophils % (auto) 0.7 %; Hematocrit (blood only) 39.2 % (37-47); Hemoglobin 12.7 g/dL (12.0-16.0); Immature Granulocytes # (auto) 0.01 K/uL (0.00-0.02); Immature Granulocytes % (auto) 0.2 %; Lymphocytes % (auto) 24.6 %; Mean Corpuscular Hgb Conc 32.4 g/dL (32-36); Mean Corpuscular Volume 98.5 fL (80-100); Mean Platelet Volume 10.2 fL (7.4-10.4); Monocytes # (auto) 0.51 K/uL (0.11-0.59); Monocytes % (auto) 12.5 %; Neutrophils # (auto) 2.51 K/uL (1.4-6.5); Neutrophils % (auto) 61.8 %; Platelet Count 158 K/uL (130-400); RDW Coefficient of Variation 15.8 % (11.5-14.5); Red Blood Count 3.98 M/uL (4.2-5.4); White Blood Count 4.07 K/uL (4.8-10.8)
[2018-04-22 07:42] LABS: BUN Creatinine Ratio 17.7 (10-20); Calcium 8.7 mg/dl (8.5-10.1); Creatinine Clr Calc Pharmacy 93.4 ml/min; Est GFR (African American) 116.8; Est GFR (Non-African American) 100.8; Potassium 3.5 mmol/L (3.5-5.1)
[2018-04-22] MEDS: predniSONE 20 MG TAB PO SCH (08:28)
[2018-04-22] MEDS: FOLIC ACID 1 MG TAB PO SCH (08:28)
[2018-04-22] MEDS: OSELTAMIVIR PHOSPHATE 75 MG CAP PO SCH (08:28)
[2018-04-22] MEDS: DOXYCYCLINE HYCLATE 100 MG CAP PO SCH (08:29)
[2018-04-22] MEDS: METOPROLOL SUCC 25MG EXT REL TAB PO SCH (08:30)
[2018-04-22] MEDS: PANTOprazole 40 MG TAB PO SCH (08:30)
[2018-04-22] MEDS: BUDESONIDE/FORMOTEROL FUMARATE 160/4.5 60 PUFFS/INHALER INH SCH (08:30)
[2018-04-22] MEDS: LOSARTAN POTASSIUM 25 MG TAB PO SCH (08:30)
[2018-04-22] MEDS: ENOXAPARIN INJ 40 MG/0.4 ML SYR SQ SCH (08:31)
[2018-04-22] MEDS ORDERED: BENZONATATE 100 MG CAPSULE PO SCH (09:00)
[2018-04-22] MEDS: TIOTROPIUM BROMIDE 5 PUFF/90 MCG INH INH SCH (10:02)
[2018-04-22] MEDS: CHOLESTYRAMINE LIGHT 4 GM PKT PO SCH (10:02)
--- NOTE | 2018-04-22 11:18 | Hospitalist Progress Note ---
Date of Service April 22, 2018 Assessment & Plan (1) Influenza A: This is a 58-year-old female who presents with fever, cough,Influenza A positive. Fever, Influenza A, Chronic obstructive pulmonary disease with exacerbation and respiratory infection/acute bronchitis -was given tamiflu, nebulizer treatments, prednisone in the hospital -follow blood culture results, no urinary tract infection, while likely the fever is related to viral influenza infection, -given empiric IV Zosyn since fevers are high (102 F) from 04/20/18 to 04/21/18 -no fever on day of 04/21/18 so far -de-escalate to Doxycycline 100 mg BID starting on 04/21/18 as patient is clinically improving. awaiting the blood culture results -04/22/18: take 3 more days of Tamiflu as 75 mg BID, take 6 more days of doxycycline 100 mg BID Mild chronic obstructive pulmonary disease exacerbation mild hypoxia on room air as seen in recent vitals signs recordings off nasal cannula treatment, off nebulizer treatments, continue home dose inhalers History of rheumatoid arthritis -reports problems to methotrexate in the past -no acute flare at this time -outpatient rheumatology clinic follow up Hold home dose Teriparatide Forteo (recombinant protein form of parathyroid hormone) for now History of hypertension continue Cozaar and Toprol XL History of Premature Ventricular Contractions and palpitations -no acute palpitations for now -telemetry monitoring -on Toprol-XL. Gastroesophageal reflux disease, proton pump inhibitor. Deep venous thrombosis prophylaxis: Lovenox. Discharge Diagnosis Fever, Influenza A, Chronic obstructive pulmonary disease with exacerbation and respiratory infection/acute bronchitis, history of rheumatoid arthritis Discharge Instructions take 3 more days of Tamiflu as 75 mg BID take 6 more days of doxycycline 100 mg BID 04/30/2018 1:00 PM Provider Sarah Zapata MD Department Internal Medicine [facility] 05/15/2018 1:40 PM Provider Shamir Strickland MD Department Rheumatology [facility] Subjective Patient afebrile today while on Doxycycline Patient was seen and examined when on room air and reports breathing without acute distress. denies vomiting since being on medical gonzalez. denies abdominal pain. denies chest pain. denies diarrhea. denies dsyuria we discussed discharge plans Physical Exam 2 Vital Signs (Past 24 Hours): Last Vital Signs Temp 36.7 C 04/22/18 11:05 Pulse 79 04/22/18 11:05 Resp 18 04/22/18 11:05 BP 118/76 04/22/18 11:05 Pulse Ox 93 04/22/18 11:05 Constitutional: WD/WN, vitals as above Eyes: PERRL, conjunctivae normal, anicteric sclerae ENMT: external ear and nose normal, oropharynx normal Respiratory: normal respiratory effort, lungs clear to auscultation Cardiovascular: RRR, no murmur, no edema Gastrointestinal (Abdomen): normal bowel sounds, soft, nontender, no hepatosplenomegaly Musculoskeletal: Head/Neck/Chest: normocephalic and head atraumatic Neurologic: PERRL, EOMI, accommodation nl, no face palsy, no dysarthria Psychiatric: A+Ox3, euthymic affect
--- NOTE | 2018-04-22 11:22 | Discharge Summary ---
Date of Service April 22, 2018 Admission HPI Per Admitting Provider CHIEF COMPLAINT: Fever and cough. HISTORY OF PRESENT ILLNESS: This is a 58-year-old female with past medical history significant for palpitations, PVCs, GERD, rheumatoid arthritis involving multiple sites, degenerative disk disease, steroid induced osteoporosis, possible COPD, presents with feeling aches and pains, fever starting last Friday. Yesterday, she has also had nausea, and she vomited for couple of hours and was not feeling well and came to the ER and found to be flu positive.Currently resting comfortably, hemodynamically stable. Currently denies any shortness of breath, no chest pain. Nausea is better. She has some headaches, no blurred vision, has mild runny nose. Appetite is not that great for the last few days. No abdominal pain. She is constipated. Normal bladder movements. She has been treated for bronchitis with 2 courses of prednisone, and last course was a couple of weeks ago, and she was also in the hospital in January for acute bronchitis, and supposed to follow with pulmonary, Dr. Brice but did not follow so far. ALLERGIES: No known drug allergies. PAST MEDICAL HISTORY: As mentioned above. PAST SURGICAL HISTORY: Colonoscopy, right knee arthroscopy. EGD, lysis of labial lesions, ligation of oviduct. MEDICATIONS: Patient is on Forteo 20 mcg subcutaneous once daily, Orencia 100 mcg subcutaneously every week, methotrexate 17.5 mg once weekly, folic acid 1 mg daily, Cozaar 25 mg p.o. daily, Toprol xl 50mg p.o. daily, Spiriva 18 mcg inhalation daily, Symbicort 160/4.5 two puffs b.i.d., albuterol 2 puffs every 4 hours p.r.n., Questran 4 g before meals, omeprazole 40 mg p.o. daily. FAMILY HISTORY: Significant for mother who has renal cancer and diabetes. Father had [place], hypertension. SOCIAL HISTORY: , lives with her . No smoking history but had passive smoking as her father used to smoke. No alcohol use, no drug use. REVIEW OF SYMPTOMS: As per HPI. Rest of the review of symptoms negative. Admission Exam Per Admitting Provider PHYSICAL EXAMINATION: GENERAL: Patient is of moderate build, not in acute distress. VITAL SIGNS: Temperature 38.7, pulse 102, respiratory rate 18, blood pressure 109/56, oxygen saturation 97% on room air. HEENT: No pallor, no icterus. Pupils equal, round, and reactive to light. NECK: No JVD, no neck mass, no carotid bruit. CARDIOVASCULAR SYSTEM: S1 and S2, regular rate and rhythm, no murmur, no gallop. RESPIRATORY SYSTEM: Normal AP diameter. No accessory muscle use. Mild occasional wheezing. No crackles. ABDOMEN: Soft, bowel sounds present, nontender, no distention. CENTRAL NERVOUS SYSTEM: Cranial nerves II through XII grossly intact. Nonfocal. EXTREMITIES: No edema, no erythema. Principal Diagnosis Fever, Influenza A, Chronic obstructive pulmonary disease with exacerbation and respiratory infection/acute bronchitis, history of rheumatoid arthritis Discharge Exam Constitutional WD/WN, vitals as above Eyes PERRL, conjunctivae normal, anicteric sclerae ENMT external ear and nose normal, oropharynx normal Respiratory normal respiratory effort, lungs clear to auscultation Cardiovascular RRR, no murmur, no edema Gastrointestinal (Abdomen) normal bowel sounds, soft, nontender, no hepatosplenomegaly Musculoskeletal Head/Neck/Chest: normocephalic and head atraumatic Neurologic PERRL, EOMI, accommodation nl, no face palsy, no dysarthria Psychiatric A+Ox3, euthymic affect Discharge Data Allergies Allergy/AdvReac Type Severity Reaction Status Date / Time No Known Allergies Allergy Unverified 04/20/18 08:26 Consultations 04/20/18 04:48 ED Decision to Admit Stat Hospital Course (1) Influenza A: This is a 58-year-old female who presents with fever, cough,Influenza A positive. Fever, Influenza A, Chronic obstructive pulmonary disease with exacerbation and respiratory infection/acute bronchitis -was given tamiflu, nebulizer treatments, prednisone in the hospital -follow blood culture results, no urinary tract infection, while likely the fever is related to viral influenza infection, -given empiric IV Zosyn since fevers are high (102 F) from 04/20/18 to 04/21/18 -no fever on day of 04/21/18 so far -de-escalate to Doxycycline 100 mg BID starting on 04/21/18 as patient is clinically improving. awaiting the blood culture results -04/22/18: take 3 more days of Tamiflu as 75 mg BID, take 6 more days of doxycycline 100 mg BID Mild chronic obstructive pulmonary disease exacerbation mild hypoxia on room air as seen in recent vitals signs recordings off nasal cannula treatment, off nebulizer treatments, continue home dose inhalers History of rheumatoid arthritis -reports problems to methotrexate in the past -no acute flare at this time -outpatient rheumatology clinic follow up Hold home dose Teriparatide Forteo (recombinant protein form of parathyroid hormone) for now History of hypertension continue Cozaar and Toprol XL History of Premature Ventricular Contractions and palpitations -no acute palpitations for now -telemetry monitoring -on Toprol-XL. Gastroesophageal reflux disease, proton pump inhibitor. Deep venous thrombosis prophylaxis: Lovenox. Discharge Diagnosis Fever, Influenza A, Chronic obstructive pulmonary disease with exacerbation and respiratory infection/acute bronchitis, history of rheumatoid arthritis Discharge Instructions take 3 more days of Tamiflu as 75 mg BID take 6 more days of doxycycline 100 mg BID 04/30/2018 1:00 PM Provider Sarah Zapata MD Department Internal Medicine [facility] 05/15/2018 1:40 PM Provider Shamir Strickland MD Department Rheumatology [facility] Total Time Total Time Spent Total Time Spent (In Minutes): 40 minutes Total Time Includes: Examination of the Patient, Discharge Planning and Medication Reconciliation Discharge Plan Discharge Items Patient Disposition: Home - Self-Care Reason For Visit: FEVER,FLU Discharge Diagnosis: Fever, Influenza A, Chronic obstructive pulmonary disease with exacerbation and respiratory infection/acute bronchitis, history of rheumatoid arthritis Condition: Good Discharge Goals: Improve disease control Activity: Resume your previous activity Non-emergency contact: Primary Care Provider Call non-emergency contact if: you have any medication questions Diet: Regular Addtl Provider Instructions: Discharge Instructions take 3 more days of Tamiflu as 75 mg BID take 6 more days of doxycycline 100 mg BID 04/30/2018 1:00 PM Provider Sarah Zapata MD Department Internal Medicine [facility] 05/15/2018 1:40 PM Provider Shamir Strickland MD Department Rheumatology [facility] Prescriptions: New doxycycline hyclate 100 mg Capsule 100 mg PO BID 6 Days Qty: 12 RF: 0 oseltamivir [Tamiflu] 75 mg Capsule 75 mg PO BID 3 Days Qty: 6 RF: 0 Continue folic acid 1 mg Tablet 1 mg PO DAILY RF: 0 methotrexate sodium 25 mg/mL solution 17.5 mg subcut WK RF: 0 losartan 25 mg tablet 25 mg PO DAILY RF: 0 abatacept 125 mg/mL syringe 125 mg subcut WK RF: 0 omeprazole 40 mg Capsule,Delayed Release(Dr/Ec) 40 mg PO DAILY RF: 0 albuterol sulfate 90 mcg/actuation Hfa Aerosol Inhaler 2 puff INHALATION Q4 PRN (Reason: Wheezing) RF: 0 cholestyramine (with sugar) 4 gram powder in packet 4 g PO BID RF: 0 tiotropium bromide 18 mcg capsule, w/inhalation device 1 cap Inhalation DAILY RF: 0 prednisone 1 mg Tablet 1 mg PO UD RF: 0 metoprolol succinate 25 mg tablet extended release 24 hr 25 mg PO DAILY RF: 0 budesonide-formoterol [Symbicort] 160-4.5 mcg/actuation Hfa Aerosol Inhaler 2 puff INHALATION BID RF: 0 teriparatide [Forteo] 20 mcg/dose - 600 mcg/2.4 mL Pen Injector 20 mcg SUBCUT DAILY RF: 0 guaifenesin 200 mg tablet 200 mg PO Q8H PRN (Reason: cough) Qty: 15 RF: 0 Stand-Alone Forms: [facility] Discharge Orders: Discharge Order (Routine); Ordered 04/22/18 Ordered By: Chris Martinez Admission Data Admit Date/Time: 04/20/18 05:55 Attending Provider: Chris Martinez Admit Provider: Kenyon Cooper Primary Care Provider: Sarah Zapata Other Providers: Kenyon Cooper Service: Telemetry Medical
== END 2018-04-22 14:16 | disposition home or self-care (01) | DRG 192 ==
LOC: ED 03:05 → 2N 05:55

== ENCOUNTER 2018-05-27 19:03 | Inpatient (IN) ==
--- NOTE | 2018-05-27 19:33 | Emergency Department Note ---
ED Visit Note I assisted in the care of this patient with Dr. Meier . Resident Activity Tracking Resident Involvement: Resident Care Provided Care Provided: Adult ED
[2018-05-27] MEDS ORDERED: ALBUT/IPRATROP 3MG/0.5MG NEB 3 ML VIAL NEB STA (19:42)
[2018-05-27] MEDS ORDERED: methylPREDNISolone 125 MG/2 ML VIAL IV STA (19:42)
[2018-05-27 19:59] LABS: Basophils # (auto) 0.01 K/uL (0-0.2); Basophils % (auto) 0.2 %; Eosinophils # (auto) 0.03 K/uL (0-0.5); Eosinophils % (auto) 0.5 %; Hematocrit (blood only) 40.8 % (37-47); Hemoglobin 13.1 g/dL (12.0-16.0); Immature Granulocytes # (auto) 0.02 K/uL (0.00-0.02); Immature Granulocytes % (auto) 0.4 %; Lymphocytes # (auto) 0.91 K/uL (1.2-3.4); Mean Corpuscular Hgb Conc 32.1 g/dL (32-36); Mean Corpuscular Volume 97.4 fL (80-100); Mean Platelet Volume 10.4 fL (7.4-10.4); Monocytes # (auto) 0.82 K/uL (0.11-0.59); Monocytes % (auto) 14.5 %; Neutrophils # (auto) 3.88 K/uL (1.4-6.5); Neutrophils % (auto) 68.4 %; Platelet Count 297 K/uL (130-400); RDW Coefficient of Variation 15.5 % (11.5-14.5); RDW Standard Deviation 55.1 fL (36.4-46.3); Red Blood Count 4.19 M/uL (4.2-5.4); White Blood Count 5.67 K/uL (4.8-10.8)
[2018-05-27 20:07] LABS: Blood Urea Nitrogen 18 mg/dl (7-18); Calcium 8.2 mg/dl (8.5-10.1); Carbon Dioxide 30 mmol/L (21-32); Chloride 108 mmol/L (98-107); Est GFR (African American) 66.9; Est GFR (Non-African American) 57.7; Glucose 94 mg/dl (70-99); Potassium 3.7 mmol/L (3.5-5.1); Sodium 143 mmol/L (136-145)
[2018-05-27 20:11] LABS: Troponin I < 0.015 ng/ml (0-0.045)
[2018-05-27 20:49] LABS: Influenza A virus by PCR Neg for Influ A (Neg); Influenza B virus by PCR Neg for Influ B (Neg)
--- NOTE | 2018-05-27 20:56 | Emergency Department Note ---
Entered by Shruthi Cornejo acting as a scribe for History of Present Illness General Chief complaint: Shortness of Breath/Dyspnea Stated complaint: COUGH, SOB Time Seen by Provider: 05/27/18 19:16 Source: patient Mode of arrival: ambulatory Limitations: no limitations History of Present Illness Provider complaint: shortness of breath Onset (ago): hour(s) (this morning) Location: chest Pain Consistency: + other (episode) Maximum Pain Intensity: 10 Current Pain Intensity: 4 Quality: + other (shortness of breath) Associated symptoms: + denies other symptoms (ear pain, congestions, lightheaded, rhinorrhea, hematuria, hematochezia), + chest pain (discomfort) and + cough; no fever/chills and no nausea/vomiting Treatments prior to arrival: other (Albuterol) The patient is a 58 year old female who presents to the Emergency Room with comp laints of an episode of dyspnea on exertion that occurred this morning. The patient reports that she has had a productive cough for 4 days and was evaluated by her PCP this past Friday and prescribed prednisone for five days. The patient states that she felt no relief of her symptoms, so she was prescribed a Z-Corbin yesterday. She notes that this morning her symptoms persisted and while walking to the bathroom, she experienced CASTELLON. The patient denies any fevers, ear pain, nausea, vomiting, lightheadedness, rhinorrhea, hematuria or hematochezia but states she has had chest discomfort secondary to coughing. She also denies any recent long or foreign travels. The patient reports that she did receive the flu vaccine this season. She also states that she took Albuterol 2.5 hours ago. Home Medications Home Medications Medication Instructions Recorded Confirmed Type Forteo 20 mcg SUBCUT DAILY 01/26/18 05/27/18 History Symbicort 2 puff INHALATION BID 01/26/18 05/27/18 History abatacept 125 mg SUBCUT WK 01/26/18 05/27/18 History albuterol sulfate 2 puff INHALATION Q4 PRN 01/26/18 05/27/18 History cholestyramine (with sugar) 4 g PO BID 01/26/18 05/27/18 History folic acid 1 mg PO DAILY 01/26/18 05/27/18 History losartan 25 mg PO DAILY 01/26/18 05/27/18 History methotrexate sodium 17.5 mg SUBCUT WK 01/26/18 05/27/18 History metoprolol succinate 25 mg PO DAILY 01/26/18 05/27/18 History omeprazole 40 mg PO DAILY 01/26/18 05/27/18 History tiotropium bromide 1 cap INHALATION DAILY 01/26/18 05/27/18 History albuterol sulfate 3 ml CONTINUOUS NEBULIZATION Q4H 05/27/18 05/27/18 History PRN azithromycin 250 mg PO DAILY 05/27/18 05/27/18 History benzonatate [Tessalon Perles] 100 mg PO TID PRN 05/27/18 05/27/18 History fluticasone [Flonase Allergy 2 spray INTRANASAL DAILY 05/27/18 05/27/18 History Relief] prednisone 40 mg PO DAILY 05/27/18 05/27/18 History Allergies Allergy/AdvReac Type Severity Reaction Status Date / Time methotrexate AdvReac Intermediate PILL Verified 05/27/18 19:59 FORM--UPSET STOMACH Past Med/Surg History Medical History HTN (hypertension) (Chronic) COPD (chronic obstructive pulmonary disease) (Chronic) Palpitations (Chronic) GERD (gastroesophageal reflux disease) (Chronic) Lung nodule (Chronic) Asthma (Chronic) Rheumatoid arthritis (Chronic) Surgical History History of tubal ligation (Chronic) Family History Other CAD (coronary artery disease) Diabetes HTN (hypertension) Social History Preferred Language: Singaporean Beliefs That Will Affect Care: None Current Living Situation: Spouse Feels Safe at Home: Yes Smoking Status: Never smoker Hx Alcohol Use: No Hx Substance Use: No Review of Systems See HPI for pertinent positives & negatives. and A total of 10 systems reviewed and were otherwise negative Physical Exam Vital Signs Vital Signs - 24 hr 05/27/18 19:08 05/27/18 19:46 05/27/18 19:49 Temperature 36.9 C Temperature Source Oral Sepsis Recent Fever Within 48 Hours No Sepsis Action Taken by Nursing No Action Required Pulse Rate 87 Pulse Rate [Left] Pulse Rate from SpO2 Sensor Pulse Rhythm Regular Pulse Strength Normal Respiratory Rate 22 Respiratory Effort / Characteristics Non-Labored Spontaneous Respiratory Depth Normal Respiratory Pattern Regular Blood Pressure 157/70 H Blood Pressure [Left Arm] Blood Pressure Mean 99 Blood Pressure Mean [Left Arm] Blood Pressure Position Sitting Pulse Oximetry 89 L 91 Pulse Oximetry [Exercises] 86 L Oxygen Delivery Method Room Air Room Air Room Air Oxygen Flow Rate 05/27/18 20:00 05/27/18 20:50 05/27/18 20:51 Temperature Temperature Source Sepsis Recent Fever Within 48 Hours Sepsis Action Taken by Nursing Pulse Rate 85 87 Pulse Rate [Left] 88 Pulse Rate from SpO2 Sensor 87 89 Pulse Rhythm Pulse Strength Respiratory Rate 20 18 20 Respiratory Effort / Characteristics Respiratory Depth Respiratory Pattern Blood Pressure 137/70 148/62 H Blood Pressure [Left Arm] 148/62 H Blood Pressure Mean 92 90 Blood Pressure Mean [Left Arm] 90 Blood Pressure Position Pulse Oximetry 93 93 90 Pulse Oximetry [Exercises] Oxygen Delivery Method Room Air Oxygen Flow Rate 05/27/18 21:00 05/27/18 21:31 05/27/18 22:00 Temperature Temperature Source Sepsis Recent Fever Within 48 Hours Sepsis Action Taken by Nursing Pulse Rate 84 81 83 Pulse Rate [Left] Pulse Rate from SpO2 Sensor 86 83 84 Pulse Rhythm Pulse Strength Respiratory Rate 18 20 21 Respiratory Effort / Characteristics Respiratory Depth Respiratory Pattern Blood Pressure 102/80 125/78 133/72 Blood Pressure [Left Arm] Blood Pressure Mean 87 93 92 Blood Pressure Mean [Left Arm] Blood Pressure Position Pulse Oximetry 90 89 L 89 L Pulse Oximetry [Exercises] Oxygen Delivery Method Oxygen Flow Rate 05/27/18 22:06 05/27/18 22:07 Temperature Temperature Source Sepsis Recent Fever Within 48 Hours Sepsis Action Taken by Nursing Pulse Rate Pulse Rate [Left] Pulse Rate from SpO2 Sensor Pulse Rhythm Pulse Strength Respiratory Rate Respiratory Effort / Characteristics Respiratory Depth Respiratory Pattern Blood Pressure Blood Pressure [Left Arm] Blood Pressure Mean Blood Pressure Mean [Left Arm] Blood Pressure Position Pulse Oximetry 92 89 L Pulse Oximetry [Exercises] Oxygen Delivery Method Nasal Cannula Room Air Oxygen Flow Rate 2 0 GENERAL: Patient is in no acute distress. Dry cough noted. HEENT: No acute trauma, normocephalic atraumatic, mucous membranes moist, no nasal congestion, no scleral icterus. NECK: No stridor, no adenopathy, no meningismus, trachea is midline. LUNGS: Wheezing and rhonchi bilaterally worse on right, diminished breath soun ds, no respiratory distress. HEART: Without murmurs gallops or rubs, regular rate and rhythm. ABDOMEN: Soft, nontender, bowel sounds positive, no hernias, no peritonitis. EXTREMITIES: No cyanosis or edema, full range of motion of all the joints without pain or difficulty, no signs for acute trauma. NEUROLOGIC: Oriented x 3, no acute motor or sensory deficits, no focal weakness. SKIN: No rash, no jaundice, no diaphoresis. Course 1947: Past medical records reviewed. The patient was evaluated in room A11B, and a complete history and physical examination were performed. 1803: The patient's O2 Sat dropped to 86% during ambulation trial. 2055: Dr. Pedraza reviewed the patient's case with Dr. Cooper [facility] Hospitalist. She will evaluate the patient for further management. 2058: I updated the patient on today's findings and treatment plan. Administered Medications Discontinued Medications Albuterol (Duoneb) 3 ml NEB NOW STA Stop: 05/27/18 19:43 Last Admin: 05/27/18 19:55 Dose: 3 ml Documented by: [id number] Methylprednisolone (Solumedrol) 80 mg IV NOW STA Stop: 05/27/18 19:43 Last Admin: 05/27/18 19:55 Dose: 80 mg Documented by: [id number] Medical Decision Making Differential Diagnosis Differential Diagnosis includes: bronchitis or pneumonia, CHF, exacerbation of asthma, influenza or flu-like illness, dehydration, failed outpatient treatment, and cardiac ischemia. Medical Records Attestation: I reviewed the patient's medical records. Home Medications Current Medication List: was personally reviewed by me Laboratory Data Attestation: I reviewed the patient's lab results. Result diagrams: 05/27/18 19:35 05/27/18 19:35 Lab Results 05/27/18 05/27/18 05/27/18 Range/Units 19:35 19:35 19:40 WBC 5.67 (4.8-10.8) K/uL RBC 4.19 L (4.2-5.4) M/uL Hgb 13.1 (12.0-16.0) g/dL Hct 40.8 (37-47) % MCV 97.4 (80-100) fL MCH 31.3 (25-34) pg MCHC 32.1 (32-36) g/dL RDW Std Deviation 55.1 H (36.4-46.3) fL RDW Coeff of Ashtyn 15.5 H (11.5-14.5) % Plt Count 297 (130-400) K/uL MPV 10.4 (7.4-10.4) fL Immature Gran % (Auto) 0.4 % Neut % (Auto) 68.4 % Lymph % (Auto) 16.0 % Colbert % (Auto) 14.5 % Eos % (Auto) 0.5 % Baso % (Auto) 0.2 % Immature Gran # (Auto) 0.02 (0.00-0.02) K/uL Neut # (Auto) 3.88 (1.4-6.5) K/uL Lymph # (Auto) 0.91 L (1.2-3.4) K/uL Colbert # (Auto) 0.82 H (0.11-0.59) K/uL Eos # (Auto) 0.03 (0-0.5) K/uL Baso # (Auto) 0.01 (0-0.2) K/uL Sodium 143 (136-145) mmol/L Potassium 3.7 (3.5-5.1) mmol/L Chloride 108 H (98-107) mmol/L Carbon Dioxide 30 (21-32) mmol/L Anion Gap 5.0 (3-11) BUN 18 (7-18) mg/dl Creatinine 1.05 (0.6-1.2) mg/dl Est Cr Clr Drug Dosing 52.0 ml/min Est GFR ( Amer) 66.9 Est GFR (Non-Af Amer) 57.7 BUN/Creatinine Ratio 17.0 (10-20) Glucose 94 (70-99) mg/dl Calcium 8.2 L (8.5-10.1) mg/dl Troponin I < 0.015 (0-0.045) ng/ml Influenza Type A (PCR) Neg for Influ A (Neg) Influenza Type B (PCR) Neg for Influ B (Neg) Imaging Data Radiologist's Impression: Radiology results as stated below per my review and the radiologist's interpretation: XR chest 2V routine HISTORY: 58 years-old Female sob, hypoxia, prod cough acute shortness of breath with hypoxia COMPARISON: CTA chest 01/27/2018, chest radiograph 04/20/2018 TECHNIQUE: PA and lateral views of the chest FINDINGS: Cardiomediastinal and hilar silhouettes are within normal limits. No pneumothorax, pleural effusion, focal airspace consolidation or overt pulmonary edema. Mild chronic interstitial coarsening about the right lung base suggestive of scarring. Lungs are hyperinflated with diaphragmatic flattening. Degenerative changes of the shoulders and spine. IMPRESSION: Hyperinflation without acute process. The above report was generated using voice recognition software. It may contain grammatical, syntax or spelling errors. Electronically signed by: Nagi Lorenzo M.D. 05/27/2018 8:59 PM ECG Data Attestation: I personally reviewed and interpreted this ECG as follows: Indication: SOB/dyspnea Rate (beats per minute): 76 Rhythm: normal sinus Findings: no PVC and no ST elevation Blood Pressure Blood Pressure Findings: Elevated blood pressure Blood Pressure Disposition: further management by hospitalist MDM Narrative There is no leukocytosis or concerning anemia. No significant electrolyte abnormality or kidney failure. Influenza testing is negative. EKG shows a sinus rhythm, no acute ischemia. Cardiac enzyme testing x1 is not consistent with acute cardiac injury. Chest film does not show CHF, pneumonia or pneumothorax. The patient was wheezing with some rhonchi on exam. With ambulation, her O2 saturation dropped to around 86%. The patient presents with shortness of breath and persistent cough despite prednisone and Zithromax as an outpatient. She carries a history of asthma. She has failed outpatient therapy. Patient received IV Solu-Medrol, she was given a DuoNeb. I do think a hospital stay is warranted given the failed outpatient management and the hypoxia. The patient has had to stay in the hospital for for similar symptoms. Case management has been involved. The on-call hospitalist was consulted. Impression & Plan Acute bronchitis, Hypoxia, Asthma exacerbation, Failure of outpatient treatment Discharge Plan Visit Data Chief Complaint: Shortness of Breath/Dyspnea Stated Complaint: COUGH, SOB ED Provider: Cameron Meier ED Midlevel Provider: Ene Pedraza Discharge Problem: Acute bronchitis, Hypoxia, Asthma exacerbation, Failure of outpatient treatment Patient Disposition: Being Evaluated by Hospitalist Forms Stand Alone Forms: My [facility] [employer] Prescriptions Prescriptions: No Action azithromycin 250 mg Tablet 250 mg PO DAILY RF: 0 benzonatate [Tessalon Perles] 100 mg Capsule 100 mg PO TID PRN (Reason: Cough) RF: 0 fluticasone [Flonase Allergy Relief] 50 mcg/actuation Kamiah,Suspension 2 spray INTRANASAL DAILY RF: 0 prednisone 20 mg Tablet 40 mg PO DAILY RF: 0 albuterol sulfate 2.5 mg /3 mL (0.083 %) solution for nebulization 3 ml Continuous Nebulization Q4H PRN (Reason: Shortness Of Breath Or Wheezing) RF: 0 folic acid 1 mg Tablet 1 mg PO DAILY RF: 0 methotrexate sodium 25 mg/mL solution 17.5 mg subcut WK RF: 0 losartan 25 mg tablet 25 mg PO DAILY RF: 0 abatacept 125 mg/mL syringe 125 mg subcut WK RF: 0 omeprazole 40 mg Capsule,Delayed Release(Dr/Ec) 40 mg PO DAILY RF: 0 albuterol sulfate 90 mcg/actuation Hfa Aerosol Inhaler 2 puff INHALATION Q4 PRN (Reason: Wheezing) RF: 0 cholestyramine (with sugar) 4 gram powder in packet 4 g PO BID RF: 0 tiotropium bromide 18 mcg capsule, w/inhalation device 1 cap Inhalation DAILY RF: 0 metoprolol succinate 25 mg tablet extended release 24 hr 25 mg PO DAILY RF: 0 Symbicort 160-4.5 mcg/actuation Hfa Aerosol Inhaler 2 puff INHALATION BID RF: 0 Forteo 20 mcg/dose - 600 mcg/2.4 mL Pen Injector 20 mcg SUBCUT DAILY RF: 0 Referrals Referrals: Sarah Zapata MD [Primary Care Provider] - Discharge Problem: Acute bronchitis Qualifiers: Bronchitis organism: unspecified organism Qualified Code(s): J20.9 - Acute bronchitis, unspecified The scribe's documentation has been prepared under my direction and personally reviewed by me in its entirety. I confirm that the note above accurately reflects all work, treatment, procedures, and medical decision making performed by me.
--- NOTE | 2018-05-27 21:01 | XRay Report ---
XR chest 2V routine HISTORY: 58 years-old Female sob, hypoxia, prod cough acute shortness of breath with hypoxia COMPARISON: CTA chest 01/27/2018, chest radiograph 04/20/2018 TECHNIQUE: PA and lateral views of the chest FINDINGS: Cardiomediastinal and hilar silhouettes are within normal limits. No pneumothorax, pleural effusion, focal airspace consolidation or overt pulmonary edema. Mild chronic interstitial coarsening about the right lung base suggestive of scarring. Lungs are hyperinflated with diaphragmatic flattening. Degen erative changes of the shoulders and spine. IMPRESSION: Hyperinflation without acute process. The above report was generated using voice recognition software. It may contain grammatical, syntax o r spelling errors. Electronically signed by: Nagi Lorenzo M.D. 05/27/2018 8:59 PM
--- NOTE | 2018-05-27 22:16 | History & Physical Report ---
Date of Service May 27, 2018 Assessment & Plan (1) COPD (chronic obstructive pulmonary disease): (2) Hypoxia: Pt presented with c/o productive cough, SOB, wheezing, chills started 4 days ago. Yesterday started on Prednisone 40mg daily and Zpak and doing home albuterol nebs without much relief. In ER pt afebrile, BP: 157/70, P: 87, R: 22, 86-90% on RA. WBC: 5. Negative influenza PCR. CXR: no acute changes -In ER was given albuterol nebulizer treatment, solumedrol 80mg IV COPD Exacerbation -supplemental oxygen as needed -xopenex/atrovent nebs -solumedrol 40mg IV BID -doxycycline -continue symbicort -cbc, bmp in am (3) HTN (hypertension): -continue losartan, metoprolol (4) Rheumatoid arthritis: -hold methotrexate (5) GERD (gastroesophageal reflux disease): -Continue PPI (6) Palpitations: hx palpitations, PVCs. Denies CP, palpitations -continue metoprolol DVT Prophylaxis -Lovenox Full Code Follows with Dr Zapata for routine care Pt was seen with Dr Cooper. See addendum History of Present Illness Chief Complaint: Cough Primary Care Provider: Sarah Zapata Pt is 58 y/o F with PMH GERD, RA, possible COPD, steroid induced osteoporosis, palpitations/PVC's presented to ER with c/o cough and SOB. Pt states 4 days ago started with "creamy" productive cough, SOB, wheezing and chills. Denies fever. Seen at PCP office yesterday and started on zpak and prednisone 40mg x 5 days. Pt reports has been using albuterol nebs at home without much relief. Hx hospitalization 04/20/18-04/22/18 for influenza and was on tamiflu and doxycycline. Reports granddaughter had fever symptoms 2 weeks ago. Denies diaphoresis, N/V/D/C, KNOX, dizziness, syncope, vision changes, neck pain, CP, orthopnea, palpitations, hemoptysis, sore throat, choking, otalgia, rhinorrhea, abdominal pain, paresthesias, weakness, extremity weakness, extremity edema, rashes, urinary symptoms. In ER noted hypoxia 86% on RA. Pt to be admitted for further observation and treatment. Allergies Allergy/AdvReac Type Severity Reaction Status Date / Time methotrexate AdvReac Intermediate PILL Verified 05/27/18 19:59 FORM--UPSET STOMACH Home Medications Home Medications Medication Instructions Recorded Confirmed Type Forteo 20 mcg SUBCUT DAILY 01/26/18 05/27/18 History Symbicort 2 puff INHALATION BID 01/26/18 05/27/18 History abatacept 125 mg SUBCUT WK 01/26/18 05/27/18 History albuterol sulfate 2 puff INHALATION Q4 PRN 01/26/18 05/27/18 History cholestyramine (with sugar) 4 g PO BID 01/26/18 05/27/18 History folic acid 1 mg PO DAILY 01/26/18 05/27/18 History losartan 25 mg PO DAILY 01/26/18 05/27/18 History methotrexate sodium 17.5 mg SUBCUT WK 01/26/18 05/27/18 History metoprolol succinate 25 mg PO DAILY 01/26/18 05/27/18 History omeprazole 40 mg PO DAILY 01/26/18 05/27/18 History tiotropium bromide 1 cap INHALATION DAILY 01/26/18 05/27/18 History albuterol sulfate 3 ml CONTINUOUS NEBULIZATION Q4H 05/27/18 05/27/18 History PRN azithromycin 250 mg PO DAILY 05/27/18 05/27/18 History benzonatate [Tessalon Perles] 100 mg PO TID PRN 05/27/18 05/27/18 History fluticasone [Flonase Allergy 2 spray INTRANASAL DAILY 05/27/18 05/27/18 History Relief] prednisone 40 mg PO DAILY 05/27/18 05/27/18 History Past Med/Surg History Medical History HTN (hypertension) (Chronic) COPD (chronic obstructive pulmonary disease) (Chronic) Palpitations (Chronic) GERD (gastroesophageal reflux disease) (Chronic) Lung nodule (Chronic) Asthma (Chronic) Rheumatoid arthritis (Chronic) Surgical History History of tubal ligation (Chronic) Family History Other CAD (coronary artery disease) Diabetes HTN (hypertension) Social History Preferred Language: Yi Communication Ability: Effective Helper/Driver Required: No Beliefs That Will Affect Care: None Current Living Situation: Spouse and Family Other Information That Helps Us Care for You: No Feels Safe at Home: Yes Safety Concerns: Feels Safe At This Time Smoking Status: Never smoker Hx Alcohol Use: No Hx Substance Use: No Review of Systems All systems reviewed & are unremarkable except as noted in HPI & below Physical Exam Vital Signs (Past 24 Hours): Last Vital Signs Temp 36.9 C 05/27/18 19:08 Pulse 83 05/27/18 22:00 Resp 21 05/27/18 22:00 BP 133/72 05/27/18 22:00 Pulse Ox 89 L 05/27/18 22:07 Physical Exam: General: no distress, WDWN Head: normocephalic, atraumatic Eyes: PERRL, EOM's intact, conjunctiva non-injected, anicteric ENT: normal inspection external ears, nose, mucous membranes moist Neck: supple, trachea midline Lungs: clear, no respiratory distress,+scattered wheezing throughout CV: RRR, no murmur, no pretibial edema Abd: normal BS, soft, non-tender Ext: no cyanosis, no calf tenderness Neuro: A&O x 3, no focal deficits noted, normal affect Skin: warm, dry Results & Data Laboratory Results Short CBC 05/27/18 Range/Units 19:35 WBC 5.67 (4.8-10.8) K/uL Hgb 13.1 (12.0-16.0) g/dL Hct 40.8 (37-47) % Plt Count 297 (130-400) K/uL BMP 05/27/18 19:35 Sodium 143 Potassium 3.7 Chloride 108 H Carbon Dioxide 30 BUN 18 Creatinine 1.05 Glucose 94 Calcium 8.2 L Cardiac Enzymes 05/27/18 Range/Units 19:35 Troponin I < 0.015 (0-0.045) ng/ml Diagnostic Findings CXR: IMPRESSION: Hyperinflation without acute process. Supervising Physician Co-Signing Physician Notes Care coordinated with Ann WHEAT. Agree with able note. Patient seen and examined. Please refer to her notes for full details. Vital signs reviewed. Physical exam: General exam: Alert and oriented. Not in acute distress. CVS: S1 and S2 heard, regular rate and rhythm, no murmurs. RS: Clear to auscultation, no wheezing mild bilateral crackles. ABD: Soft, bowel sounds present, nontender, no distention. COSMETOLOGY TEACHER: Nonfocal. EXT: No edema, no erythema. Labs: Reviewed. Assessment and plan: Copd ex hypoxia failed out patient tx will start on iv solumedrol, nebs atc and prn, po doxycyline home inhalers close monitor Other diagnosis and plan of care as per Ann bourne MD.
[2018-05-28] MEDS ORDERED: GUAIFENESIN/CODEINE 100MG/10MG 5ML UDC PO PRN (00:01)
[2018-05-28] MEDS ORDERED: XOPENEX/ATROVENT 0.63mg/0.5MG NEB COMBO NEB PRN (00:01)
[2018-05-28] MEDS ORDERED: ACETAMINOPHEN 325 MG TAB PO PRN (00:01)
[2018-05-28] MEDS ORDERED: IPRATROPIUM BROMIDE NEB SOLN 0.02% 2.5 ML VIAL INH PRN (00:01)
[2018-05-28] MEDS ORDERED: LEVALBUTEROL HCL 0.63 MG/3 ML NEB NEB PRN (00:01)
[2018-05-28] MEDS: DOXYCYCLINE HYCLATE 100 MG CAP PO SCH ×3 (01:07→21:17)
[2018-05-28] MEDS: IPRATROPIUM BROMIDE NEB SOLN 0.02% 2.5 ML VIAL INH SCH ×4 (01:53→20:18)
[2018-05-28] MEDS: LEVALBUTEROL 1.25MG/0.5ML NEB INH SCH ×4 (01:53→20:18)
[2018-05-28] MEDS ORDERED: XOPENEX/ATROVENT 1.25mg/0.5MG NEB COMBO NEB SCH (02:00)
[2018-05-28 06:14] LABS: Hematocrit (blood only) 40.3 % (37-47); Hemoglobin 13.2 g/dL (12.0-16.0); Mean Corpuscular Hgb Conc 32.8 g/dL (32-36); Mean Corpuscular Volume 96.6 fL (80-100); Mean Platelet Volume 10.3 fL (7.4-10.4); Platelet Count 280 K/uL (130-400); RDW Coefficient of Variation 15.7 % (11.5-14.5); RDW Standard Deviation 55.2 fL (36.4-46.3); Red Blood Count 4.17 M/uL (4.2-5.4); White Blood Count 5.37 K/uL (4.8-10.8)
[2018-05-28 06:44] LABS: BUN Creatinine Ratio 23.5 (10-20); Calcium 8.2 mg/dl (8.5-10.1); Creatinine Clr Calc Pharmacy 73.7 ml/min; Est GFR (African American) 102.1; Est GFR (Non-African American) 88.1; Potassium 3.8 mmol/L (3.5-5.1)
[2018-05-28] MEDS: FOLIC ACID 1 MG TAB PO SCH (08:43)
[2018-05-28] MEDS: METOPROLOL SUCC 25MG EXT REL TAB PO SCH (08:43)
[2018-05-28] MEDS: LOSARTAN POTASSIUM 25 MG TAB PO SCH (08:44)
[2018-05-28] MEDS: BENZONATATE 100 MG CAPSULE PO PRN ×2 (08:44→21:17)
[2018-05-28] MEDS: PANTOprazole 40 MG TAB PO SCH (08:44)
[2018-05-28] MEDS: ENOXAPARIN INJ 40 MG/0.4 ML SYR SQ SCH (08:45)
[2018-05-28] MEDS: methylPREDNISolone 40 MG in SYRINGE 0 ML IV SCH ×2 (08:45→21:17)
[2018-05-28] MEDS: BUDESONIDE/FORMOTEROL FUMARATE 160/4.5 60 PUFFS/INHALER INH SCH ×2 (08:45→21:17)
[2018-05-28] MEDS: FLUTICASONE PROPIONATE NA SPR 16 GM BTL SCH (09:00)
--- NOTE | 2018-05-28 13:15 | Hospitalist Progress Note ---
Date of Service May 28, 2018 Assessment & Plan (1) COPD (chronic obstructive pulmonary disease): (2) Hypoxia: Pt presented with c/o productive cough, SOB, wheezing, chills started 4 days ago. Yesterday started on Prednisone 40mg daily and Zpak and doing home albuterol nebs without much relief. In ER pt afebrile, BP: 157/70, P: 87, R: 22, 86-90% on RA. WBC: 5. Negative influenza PCR. CXR: no acute changes -In ER was given albuterol nebulizer treatment, solumedrol 80mg IV COPD Exacerbation without any evidence of pneumonia Has been started him on Solu-Medrol, nebulized bronchodilator and doxycycline for possible bronchitis Clinically much better with improvement of cough and shortness of breath (3) HTN (hypertension): -continue losartan, metoprolol -Blood pressure is controlled (4) Rheumatoid arthritis: -hold methotrexate -We will continue methotrexate as an outpatient (5) GERD (gastroesophageal reflux disease): -Continue PPI (6) Palpitations: hx palpitations, PVCs. Denies CP, palpitations -continue metoprolol DVT Prophylaxis -Lovenox Full Code Follows with Dr Zapata for routine care Likely to be discharged tomorrow Subjective She is a 58 y/o F with PMH GERD, RA, possible COPD, steroid induced osteoporosis, palpitations/PVC's presented to ER with c/o cough and SOB 05/28 Patient was seen and examined in medical floor She has been feeling a lot better since admission Her cough has decreased and shortness of breath is improved Physical Exam Vital Signs (Past 24 Hours): Last Vital Signs Temp 36.3 C L 05/28/18 07:19 Pulse 72 05/28/18 07:19 Resp 18 05/28/18 07:19 BP 126/70 05/28/18 07:19 Pulse Ox 95 05/28/18 07:19 Physical Exam: Minimal distress at rest Constitutional: WD/WN, vitals as above Eyes: PERRL, conjunctivae normal, anicteric sclerae ENMT: external ear and nose normal, oropharynx normal Respiratory: + respiratory distress (Minimal distress at rest) Aus cultation: + diminished lung sounds, + crackles (At the bases) and + wheezes (Moderate wheezing on movement) Cardiovascular: Rate/Rhythm: regular rate and regular rhythm Heart Sounds: normal S1 and normal S2 Gastrointestinal (Abdomen): Inspection/Auscultation: abdomen normal to inspection and normal bowel sounds Percussion/Palpation: abdomen soft Neurologic: Alert, awake and oriented x3 Results & Data Laboratory Results Short CBC 05/27/18 05/28/18 Range/Units 19:35 05:29 WBC 5.67 5.37 (4.8-10.8) K/uL Hgb 13.1 13.2 (12.0-16.0) g/dL Hct 40.8 40.3 (37-47) % Plt Count 297 280 (130-400) K/uL BMP 05/27/18 05/28/18 19:35 05:29 Sodium 143 141 Potassium 3.7 3.8 Chloride 108 H 108 H Carbon Dioxide 30 26 BUN 18 17 Creatinine 1.05 0.74 D Glucose 94 124 H Calcium 8.2 L 8.2 L Cardiac Enzymes 05/27/18 Range/Units 19:35 Troponin I < 0.015 (0-0.045) ng/ml Medications Administered Current Inpatient Medications Acetaminophen (Tylenol) 650 mg PO Q4H PRN PRN Reason: pain/fever Stop: 06/27/18 00:00 Benzonatate (Tessalon Perle) 100 mg PO TID PRN PRN Reason: Cough Stop: 06/27/18 00:00 Last Admin: 05/28/18 08:44 Dose: 100 mg Documented by: Budesonide/Formoterol Fumarate (Symbicort 160mcg/4.5mcg) 2 puffs INH BID [facility] Stop: 06/27/18 08:59 Last Admin: 05/28/18 08:45 Dose: 2 puffs Documented by: Cholestyramine Resin (Questran) 4 gm PO BID@1000,2200 [facility] Stop: 06/27/18 09:59 Doxycycline Hyclate (Vibramycin) 100 mg PO BID [facility] Stop: 06/04/18 00:59 Last Admin: 05/28/18 08:44 Dose: 100 mg Documented by: Enoxaparin Sodium (Lovenox) 40 mg SQ Q24H [facility] Stop: 06/27/18 08:59 Last Admin: 05/28/18 08:45 Dose: 40 mg Documented by: Fluticasone Propionate (Flonase) 2 sprays NA DAILY [facility] Stop: 06/27/18 08:59 Last Admin: 05/28/18 09:00 Dose: Not Given Documented by: Folic Acid (Folvite) 1 mg PO DAILY [facility] Stop: 06/27/18 08:59 Last Admin: 05/28/18 08:43 Dose: 1 mg Documented by: Guaifenesin/Codeine Phosphate (Robitussin-Ac Sugar Free) 5 ml PO Q6H PRN PRN Reason: Cough Stop: 06/27/18 00:00 Methylprednisolone 40 mg/ (Syringe) 0.64 mls @ 1.5 mls/min IV BID [facility] Stop: 06/27/18 08:59 Last Admin: 05/28/18 08:45 Dose: 1.5 mls/min Documented by: Ipratropium [place] (Atrovent 0.02% 0.5mg/2.5ml) 0.5 mg INH Q6R [facility] Stop: 06/27/18 01:59 Last Admin: 05/28/18 07:03 Dose: 0.5 mg Documented by: Ipratropium [place] (Atrovent 0.02% 0.5mg/2.5ml) 0.5 mg INH Q4R PRN PRN Reason: SOB/WHEEZING Stop: 06/27/18 00:00 Levalbuterol HCl (Xopenex 1.25mg/0.5ml Neb) 1.25 mg INH Q6R [facility] Stop: 06/27/18 01:59 Last Admin: 05/28/18 07:03 Dose: 1.25 mg Documented by: Levalbuterol HCl (Xopenex 0.63 Mg/3 Ml Neb) 0.63 mg NEB Q4R PRN PRN Reason: SOB/WHEEZING Stop: 06/27/18 00:00 Losartan Potassium (Cozaar) 25 mg PO DAILY [facility] Stop: 06/27/18 08:59 Last Admin: 05/28/18 08:44 Dose: 25 mg Documented by: Metoprolol Succinate (Toprol Xl) 25 mg PO DAILY [facility] Stop: 06/27/18 08:59 Last Admin: 05/28/18 08:43 Dose: 25 mg Documented by: Pantoprazole Sodium (Protonix) 40 mg PO DAILY [facility] Stop: 06/27/18 08:59 Last Admin: 05/28/18 08:44 Dose: 40 mg Documented by:
[2018-05-28] MEDS: CHOLESTYRAMINE LIGHT 4 GM PKT PO SCH ×2 (13:36→22:10)
[2018-05-29] MEDS: LEVALBUTEROL 1.25MG/0.5ML NEB INH SCH ×4 (01:48→19:04)
[2018-05-29] MEDS: IPRATROPIUM BROMIDE NEB SOLN 0.02% 2.5 ML VIAL INH SCH ×4 (01:48→19:04)
[2018-05-29] MEDS: DOXYCYCLINE HYCLATE 100 MG CAP PO SCH ×2 (07:49→20:40)
[2018-05-29] MEDS: LOSARTAN POTASSIUM 25 MG TAB PO SCH (07:50)
[2018-05-29] MEDS: FLUTICASONE PROPIONATE NA SPR 16 GM BTL SCH (07:50)
[2018-05-29] MEDS: PANTOprazole 40 MG TAB PO SCH (07:51)
[2018-05-29] MEDS: ENOXAPARIN INJ 40 MG/0.4 ML SYR SQ SCH (07:51)
[2018-05-29] MEDS: METOPROLOL SUCC 25MG EXT REL TAB PO SCH (07:51)
[2018-05-29] MEDS: FOLIC ACID 1 MG TAB PO SCH (07:51)
[2018-05-29] MEDS: BUDESONIDE/FORMOTEROL FUMARATE 160/4.5 60 PUFFS/INHALER INH SCH ×2 (07:52→20:39)
[2018-05-29] MEDS: methylPREDNISolone 40 MG in SYRINGE 0 ML IV SCH ×2 (08:47→20:39)
[2018-05-29] MEDS: CHOLESTYRAMINE LIGHT 4 GM PKT PO SCH ×2 (11:53→21:39)
--- NOTE | 2018-05-29 15:22 | Hospitalist Progress Note ---
Date of Service May 29, 2018 Assessment & Plan (1) COPD (chronic obstructive pulmonary disease): (2) Hypoxia: Pt presented with c/o productive cough, SOB, wheezing, chills started 4 days ago. Yesterday started on Prednisone 40mg daily and Zpak and doing home albuterol nebs without much relief. In ER pt afebrile, BP: 157/70, P: 87, R: 22, 86-90% on RA. WBC: 5. Negative influenza PCR. CXR: no acute changes -In ER was given albuterol nebulizer treatment, solumedrol 80mg IV COPD Exacerbation without any evidence of pneumonia Has been started him on Solu-Medrol, nebulized bronchodilator and doxycycline for possible bronchitis Clinically much better with improvement of cough and shortness of breath Much better today- 05/29 Occasional wheezing and shortness of breath on exertion Not yet ready to be discharged (3) HTN (hypertension): -continue losartan, metoprolol -Blood pressure is controlled (4) Rheumatoid arthritis: -hold methotrexate -We will continue methotrexate as an outpatient No acute arthritis involving any of the joints (5) GERD (gastroesophageal reflux disease): -Continue PPI (6) Palpitations: hx palpitations, PVCs. Denies CP, palpitations -continue metoprolol No more tachycardia DVT Prophylaxis -Lovenox Full Code Follows with Dr Zapata for routine care Advised more ambulation Likely home tomorrow Subjective She is a 58 y/o F with PMH GERD, RA, possible COPD, steroid induced osteoporosis, palpitations/PVC's presented to ER with c/o cough and SOB 05/28 Patient was seen and examined in medical floor She has been feeling a lot better since admission Her cough has decreased and shortness of breath is improved 05/29 The patient was seen and examined in medical floor She has been feeling a lot better but not yet ready to be discharged Still has cough with occasional wheezing and shortness of breath on exertion Physical Exam Vital Signs (Past 24 Hours): Last Vital Signs Temp 36.7 C 05/29/18 07:23 Pulse 78 05/29/18 13:55 Resp 18 05/29/18 13:55 BP 134/83 05/29/18 07:23 Pulse Ox 95 05/29/18 13:55 Physical Exam: No apparent distress at rest Constitutional: WD/WN, vitals as above Eyes: PERRL, conjunctivae normal, anicteric sclerae ENMT: external ear and nose normal, oropharynx normal Respiratory: + respiratory distress (Minimal distress at rest) Auscultat ion: + diminished lung sounds, + crackles (At the bases) and + wheezes (Moderate wheezing on movement) Cardiovascular: Rate/Rhythm: regular rate and regular rhythm Heart Sounds: normal S1 and normal S2 Gastrointestinal (Abdomen): Inspection/Auscultation: abdomen normal to inspection and normal bowel sounds Percussion/Palpation: abdomen soft Neurologic: patellar DTR's 2+ bilat, sensation intact Results & Data Medications Administered Current Inpatient Medications Acetaminophen (Tylenol) 650 mg PO Q4H PRN PRN Reason: pain/fever Stop: 06/27/18 00:00 Benzonatate (Tessalon Perle) 100 mg PO TID PRN PRN Reason: Cough Stop: 06/27/18 00:00 Last Admin: 05/28/18 21:17 Dose: 100 mg Documented by: Budesonide/Formoterol Fumarate (Symbicort 160mcg/4.5mcg) 2 puffs INH BID [facility] Stop: 06/27/18 08:59 Last Admin: 05/29/18 07:52 Dose: 2 puffs Documented by: Cholestyramine Resin (Questran) 4 gm PO BID@1000,2200 [facility] Stop: 06/27/18 09:59 Last Admin: 05/29/18 11:53 Dose: 4 gm Documented by: Doxycycline Hyclate (Vibramycin) 100 mg PO BID [facility] Stop: 06/04/18 00:59 Last Admin: 05/29/18 07:49 Dose: 100 mg Documented by: Enoxaparin Sodium (Lovenox) 40 mg SQ Q24H [facility] Stop: 06/27/18 08:59 Last Admin: 05/29/18 07:51 Dose: 40 mg Documented by: Fluticasone Propionate (Flonase) 2 sprays NA DAILY [facility] Stop: 06/27/18 08:59 Last Admin: 05/29/18 07:50 Dose: 2 sprays Documented by: Folic Acid (Folvite) 1 mg PO DAILY [facility] Stop: 06/27/18 08:59 Last Admin: 05/29/18 07:51 Dose: 1 mg Documented by: Guaifenesin/Codeine Phosphate (Robitussin-Ac Sugar Free) 5 ml PO Q6H PRN PRN Reason: Cough Stop: 06/27/18 00:00 Methylprednisolone 40 mg/ (Syringe) 0.64 mls @ 1.5 mls/min IV BID [facility] Stop: 06/27/18 08:59 Last Admin: 05/29/18 08:47 Dose: 1.5 mls/min Documented by: Ipratropium [place] (Atrovent 0.02% 0.5mg/2.5ml) 0.5 mg INH Q6R [facility] Stop: 06/27/18 01:59 Last Admin: 05/29/18 13:53 Dose: 0.5 mg Documented by: Ipratropium [place] (Atrovent 0.02% 0.5mg/2.5ml) 0.5 mg INH Q4R PRN PRN Reason: SOB/WHEEZING Stop: 06/27/18 00:00 Levalbuterol HCl (Xopenex 1.25mg/0.5ml Neb) 1.25 mg INH Q6R [facility] Stop: 06/27/18 01:59 Last Admin: 05/29/18 13:53 Dose: 1.25 mg Documented by: Levalbuterol HCl (Xopenex 0.63 Mg/3 Ml Neb) 0.63 mg NEB Q4R PRN PRN Reason: SOB/WHEEZING Stop: 06/27/18 00:00 Losartan Potassium (Cozaar) 25 mg PO DAILY [facility] Stop: 06/27/18 08:59 Last Admin: 05/29/18 07:50 Dose: 25 mg Documented by: Metoprolol Succinate (Toprol Xl) 25 mg PO DAILY [facility] Stop: 06/27/18 08:59 Last Admin: 05/29/18 07:51 Dose: 25 mg Documented by: Pantoprazole Sodium (Protonix) 40 mg PO DAILY [facility] Stop: 06/27/18 08:59 Last Admin: 05/29/18 07:51 Dose: 40 mg Documented by:
[2018-05-30] MEDS: IPRATROPIUM BROMIDE NEB SOLN 0.02% 2.5 ML VIAL INH SCH ×3 (01:50→13:56)
[2018-05-30] MEDS: LEVALBUTEROL 1.25MG/0.5ML NEB INH SCH ×3 (01:51→13:56)
[2018-05-30] MEDS: PANTOprazole 40 MG TAB PO SCH (09:34)
[2018-05-30] MEDS: FOLIC ACID 1 MG TAB PO SCH (09:34)
[2018-05-30] MEDS: DOXYCYCLINE HYCLATE 100 MG CAP PO SCH (09:35)
[2018-05-30] MEDS: LOSARTAN POTASSIUM 25 MG TAB PO SCH (09:35)
[2018-05-30] MEDS: methylPREDNISolone 40 MG in SYRINGE 0 ML IV SCH (09:35)
[2018-05-30] MEDS: METOPROLOL SUCC 25MG EXT REL TAB PO SCH (09:35)
[2018-05-30] MEDS: BUDESONIDE/FORMOTEROL FUMARATE 160/4.5 60 PUFFS/INHALER INH SCH (09:36)
[2018-05-30] MEDS: ENOXAPARIN INJ 40 MG/0.4 ML SYR SQ SCH (09:36)
[2018-05-30] MEDS: FLUTICASONE PROPIONATE NA SPR 16 GM BTL SCH (09:36)
--- NOTE | 2018-05-30 10:11 | Hospitalist Progress Note ---
Date of Service May 30, 2018 Assessment & Plan (1) COPD (chronic obstructive pulmonary disease): (2) Hypoxia: Pt presented with c/o productive cough, SOB, wheezing, chills started 4 days ago. Yesterday started on Prednisone 40mg daily and Zpak and doing home albuterol nebs without much relief. In ER pt afebrile, BP: 157/70, P: 87, R: 22, 86-90% on RA. WBC: 5. Negative influenza PCR. CXR: no acute changes -In ER was given albuterol nebulizer treatment, solumedrol 80mg IV COPD Exacerbation without any evidence of pneumonia Has been started him on Solu-Medrol, nebulized bronchodilator and doxycycline for possible bronchitis Clinically much better with improvement of cough and shortness of breath Much better today-05/30 No shortness of breath and/or wheezing at rest Ambulating without any difficulty Cough is much improved Will be discharging this afternoon (3) HTN (hypertension): -continue losartan, metoprolol -Blood pressure is controlled (4) Rheumatoid arthritis: -hold methotrexate -We will continue methotrexate as an outpatient No acute arthritis involving any of the joints (5) GERD (gastroesophageal reflux disease): -Continue PPI (6) Palpitations: hx palpitations, PVCs. Denies CP, palpitations -continue metoprolol No more tachycardia DVT Prophylaxis -Lovenox Full Code Follows with Dr Zapata for routine care Advised more ambulation Likely home this afternoon Subjective She is a 58 y/o F with PMH GERD, RA, possible COPD, steroid induced osteoporosis, palpitations/PVC's presented to ER with c/o cough and SOB 05/28 Patient was seen and examined in medical floor She has been feeling a lot better since admission Her cough has decreased and shortness of breath is improved 05/29 The patient was seen and examined in medical floor She has been feeling a lot better but not yet ready to be discharged Still has cough with occasional wheezing and shortness of breath on exertion 05/30 The patient was seen and examined the medical floor She has been feeling a lot better She denies any shortness of breath or wheezing at rest Advised to ambulate more and likely discharge this afternoon Physical Exam Vital Signs (Past 24 Hours): Last Vital Signs Temp 36.4 C L 05/30/18 07:15 Pulse 80 05/30/18 07:29 Resp 20 05/30/18 07:29 BP 137/84 05/30/18 07:15 Pulse Ox 96 05/30/18 07:29 Physical Exam: No apparent distress at rest Constitutional: WD/WN, vitals as above Eyes: PERRL, conjunctivae normal, anicteric sclerae ENMT: external ear and nose normal, oropharynx normal Respiratory: normal respiratory effort, lungs clear to auscultation Auscultation: + diminished lung sounds; no wheezes Cardiovascular: Rate/Rhythm: regular rate and regular rhythm Heart Sounds: normal S1 and normal S2 Gastrointestinal (Abdomen): Inspection/Auscultation: abdomen normal to inspection and normal bowel sounds Percussion/Palpation: abdomen soft Neurologic: patellar DTR's 2+ bilat, sensation intact Psychiatric: A+Ox3, euthymic affect Results & Data Medications Administered Current Inpatient Medications Acetaminophen (Tylenol) 650 mg PO Q4H PRN PRN Reason: pain/fever Stop: 06/27/18 00:00 Benzonatate (Tessalon Perle) 100 mg PO TID PRN PRN Reason: Cough Stop: 06/27/18 00:00 Last Admin: 05/28/18 21:17 Dose: 100 mg Documented by: Budesonide/Formoterol Fumarate (Symbicort 160mcg/4.5mcg) 2 puffs INH BID [facility] Stop: 06/27/18 08:59 Last Admin: 05/30/18 09:36 Dose: 2 puffs Documented by: Cholestyramine Resin (Questran) 4 gm PO BID@1000,2200 [facility] Stop: 06/27/18 09:59 Last Admin: 05/29/18 21:39 Dose: 4 gm Documented by: Doxycycline Hyclate (Vibramycin) 100 mg PO BID [facility] Stop: 06/04/18 00:59 Last Admin: 05/30/18 09:35 Dose: 100 mg Documented by: Enoxaparin Sodium (Lovenox) 40 mg SQ Q24H [facility] Stop: 06/27/18 08:59 Last Admin: 05/30/18 09:36 Dose: Not Given Documented by: Fluticasone Propionate (Flonase) 2 sprays NA DAILY [facility] Stop: 06/27/18 08:59 Last Admin: 05/30/18 09:36 Dose: 2 sprays Documented by: Folic Acid (Folvite) 1 mg PO DAILY [facility] Stop: 06/27/18 08:59 Last Admin: 05/30/18 09:34 Dose: 1 mg Documented by: Guaifenesin/Codeine Phosphate (Robitussin-Ac Sugar Free) 5 ml PO Q6H PRN PRN Reason: Cough Stop: 06/27/18 00:00 Methylprednisolone 40 mg/ (Syringe) 0.64 mls @ 1.5 mls/min IV BID [facility] Stop: 06/27/18 08:59 Last Admin: 05/30/18 09:35 Dose: 1.5 mls/min Documented by: Ipratropium [place] (Atrovent 0.02% 0.5mg/2.5ml) 0.5 mg INH Q6R [facility] Stop: 06/27/18 01:59 Last Admin: 05/30/18 07:28 Dose: 0.5 mg Documented by: Ipratropium [place] (Atrovent 0.02% 0.5mg/2.5ml) 0.5 mg INH Q4R PRN PRN Reason: SOB/WHEEZING Stop: 06/27/18 00:00 Levalbuterol HCl (Xopenex 1.25mg/0.5ml Neb) 1.25 mg INH Q6R [facility] Stop: 06/27/18 01:59 Last Admin: 05/30/18 07:28 Dose: 1.25 mg Documented by: Levalbuterol HCl (Xopenex 0.63 Mg/3 Ml Neb) 0.63 mg NEB Q4R PRN PRN Reason: SOB/WHEEZING Stop: 06/27/18 00:00 Losartan Potassium (Cozaar) 25 mg PO DAILY [facility] Stop: 06/27/18 08:59 Last Admin: 05/30/18 09:35 Dose: 25 mg Documented by: Metoprolol Succinate (Toprol Xl) 25 mg PO DAILY [facility] Stop: 06/27/18 08:59 Last Admin: 05/30/18 09:35 Dose: 25 mg Documented by: Pantoprazole Sodium (Protonix) 40 mg PO DAILY [facility] Stop: 06/27/18 08:59 Last Admin: 05/30/18 09:34 Dose: 40 mg Documented by:
[2018-05-30] MEDS: CHOLESTYRAMINE LIGHT 4 GM PKT PO SCH (10:58)
--- NOTE | 2018-05-31 08:20 | Discharge Summary ---
Date of Service May 31, 2018 Admission HPI Per Admitting Provider Pt is 58 y/o F with PMH GERD, RA, possible COPD, steroid induced osteoporosis, palpitations/PVC's presented to ER with c/o cough and SOB. Pt states 4 days ago started with "creamy" productive cough, SOB, wheezing and chills. Denies fever. Seen at PCP office yesterday and started on zpak and prednisone 40mg x 5 days. Pt reports has been using albuterol nebs at home without much relief. Hx hospitalization 04/20/18-04/22/18 for influenza and was on tamiflu and doxycycline. Reports granddaughter had fever symptoms 2 weeks ago. Denies diaphoresis, N/V/D/C, KNOX, dizziness, syncope, vision changes, neck pain, CP, orthopnea, palpitations, hemoptysis, sore throat, choking, otalgia, rhinorrhea, abdominal pain, paresthesias, weakness, extremity weakness, extremity edema, rashes, urinary symptoms. In ER noted hypoxia 86% on RA. Pt to be admitted for further observation and treatment. Admission Exam Per Admitting Provider Vital Signs (Past 24 Hours): Last Vital Signs Temp 36.9 C 05/27/18 19:08 Pulse 83 05/27/18 22:00 Resp 21 05/27/18 22:00 BP 133/72 05/27/18 22:00 Pulse Ox 89 L 05/27/18 22:07 Physical Exam: General: no distress, WDWN Head: normocephalic, atraumatic Eyes: PERRL, EOM's intact, conjunctiva non-injected, anicteric ENT: normal inspection external ears, nose, mucous membranes moist Neck: supple, trachea midline Lungs: clear, no respiratory distress,+scattered wheezing throughout CV: RRR, no murmur, no pretibial edema Abd: normal BS, soft, non-tender Ext: no cyanosis, no calf tenderness Neuro: A&O x 3, no focal deficits noted, normal affect Skin: warm, dry Principal Diagnosis COPD exacerbation Discharge Exam Constitutional WD/WN, vitals as above Eyes PERRL, conjunctivae normal, anicteric sclerae ENMT external ear and nose normal, oropharynx normal Respiratory normal respiratory effort, lungs clear to auscultation + respiratory distress (Minimal distress at rest) Auscultation: + diminished lung sounds; no wheezes Cardiovascular Rate/Rhythm: regular rate and regular rhythm Heart Sounds: normal S1 and normal S2 Gastrointestinal (Abdomen) Inspection/Auscultation: abdomen normal to inspection and normal bowel sounds Percussion/Palpation: abdomen soft Neurologic patellar DTR's 2+ bilat, sensation intact Psychiatric A+Ox3, euthymic affect Discharge Data Allergies Allergy/AdvReac Type Severity Reaction Status Date / Time methotrexate AdvReac Intermediate PILL Verified 05/27/18 19:59 FORM--UPSET STOMACH Consultations 05/27/18 20:58 ED Decision to Admit Stat Hospital Course (1) COPD (chronic obstructive pulmonary disease): (2) Hypoxia: Pt presented with c/o productive cough, SOB, wheezing, chills started 4 days ago. Yesterday started on Prednisone 40mg daily and Zpak and doing home albuterol nebs without much relief. In ER pt afebrile, BP: 157/70, P: 87, R: 22, 86-90% on RA. WBC: 5. Negative influenza PCR. CXR: no acute changes -In ER was given albuterol nebulizer treatment, solumedrol 80mg IV COPD Exacerbation without any evidence of pneumonia Has been started him on Solu-Medrol, nebulized bronchodilator and doxycycline for possible bronchitis Clinically much better with improvement of cough and shortness of breath Much better today-05/30 No shortness of breath and/or wheezing at rest Ambulating without any difficulty Cough is much improved Will be discharging this afternoon (3) HTN (hypertension): -continue losartan, metoprolol -Blood pressure is controlled (4) Rheumatoid arthritis: -hold methotrexate -We will continue methotrexate as an outpatient No acute arthritis involving any of the joints (5) GERD (gastroesophageal reflux disease): -Continue PPI (6) Palpitations: hx palpitations, PVCs. Denies CP, palpitations -continue metoprolol No more tachycardia DVT Prophylaxis -Lovenox Full Code Follows with Dr Zapata for routine care Advised more ambulation Likely home this afternoon Total Time Total Time Spent Total Time Spent (In Minutes): 35 minutes Total Time Includes: Examination of the Patient, Discharge Planning and Medication Reconciliation Discharge Plan Discharge Items Patient Disposition: Home - Self-Care Reason For Visit: COPD EXACERBATION Discharge Diagnosis: COPD exacerbation Condition: Good Discharge Goals: Decrease discomfort, Improve function and Increase independence Activity: Resume your previous activity Non-emergency contact: Primary Care Provider Call non-emergency contact if: you have any medication questions and your symptoms worsen Follow-up/Referrals: Sarah Zapata MD [Primary Care Provider] - 06/03/18 10:25 am (Appointment is with Dr. Lindsey) Diet: Regular Addtl Provider Instructions: Please try to avoid exacerbating factors as advised Prescriptions: New doxycycline hyclate 100 mg Capsule 100 mg PO BID 4 Days Qty: 8 RF: 0 prednisone 10 mg tablet 10 mg PO UD Qty: 20 RF: 0 Continued benzonatate [Tessalon Perles] 100 mg Capsule 100 mg PO TID PRN (Reason: Cough) RF: 0 fluticasone [Flonase Allergy Relief] 50 mcg/actuation [place],Suspension 2 spray INTRANASAL DAILY RF: 0 albuterol sulfate 2.5 mg /3 mL (0.083 %) solution for nebulization 3 ml Continuous Nebulization Q4H PRN (Reason: Shortness Of Breath Or Wheezing) RF: 0 folic acid 1 mg Tablet 1 mg PO DAILY RF: 0 methotrexate sodium 25 mg/mL solution 17.5 mg subcut WK RF: 0 losartan 25 mg tablet 25 mg PO DAILY RF: 0 abatacept 125 mg/mL syringe 125 mg subcut WK RF: 0 omeprazole 40 mg Capsule,Delayed Release(Dr/Ec) 40 mg PO DAILY RF: 0 albuterol sulfate 90 mcg/actuation Hfa Aerosol Inhaler 2 puff INHALATION Q4 PRN (Reason: Wheezing) RF: 0 cholestyramine (with sugar) 4 gram powder in packet 4 g PO BID RF: 0 tiotropium bromide 18 mcg capsule, w/inhalation device 1 cap Inhalation DAILY RF: 0 metoprolol succinate 25 mg tablet extended release 24 hr 25 mg PO DAILY RF: 0 Symbicort 160-4.5 mcg/actuation Hfa Aerosol Inhaler 2 puff INHALATION BID RF: 0 Forteo 20 mcg/dose - 600 mcg/2.4 mL Pen Injector 20 mcg SUBCUT DAILY RF: 0 Discontinued azithromycin 250 mg Tablet 250 mg PO DAILY RF: 0 prednisone 20 mg Tablet 40 mg PO DAILY RF: 0 Stand-Alone Forms: [facility] Discharge Orders: Discharge Order (Routine); Ordered 05/30/18 Ordered By: Ishan Gurrola Admission Data Admit Date/Time: 05/27/18 22:11 Attending Provider: Ishan Gurrola Admit Provider: Kenyon Cooper Primary Care Provider: Sarah Zapata Other Providers: Kenyon Cooper Service: Medical Other Interventions: Discharge Summary Assessment (RN) Last Done: 05/30/18 14:29 DC Date/Time DO NOT enter until pt leaves facility: 05/30/18 15:13
[2018-05-31] MEDS ORDERED: predniSONE 10 MG TABLET PO SCH (09:00)
[2018-07-19] MEDS ORDERED: COUGH DROP (SUGAR FREE) LOZ 24 LOZ/1 BOX BUCCAL ONE (08:55)
== END 2018-05-30 15:13 | disposition home or self-care (01) | DRG 192 ==
LOC: ED 19:03 → 2N 22:11 → 4E 05-30 00:27